=== PATIENT | male | born 1960 | race Caucasian/White ===

== ENCOUNTER → 2017-07-18 06:33 | Outpatient (CLI) | payer OTHER, SELFPAY ==
[2017-07-18 07:28] LABS: AST(SGOT) 21 U/L (15-37); Alanine Aminotransfer ALT/SGPT 32 U/L (16-61); Albumin, Serum 3.8 g/dL (3.2-5.0); Alkaline Phosphatase 45 U/L (45-117); Bilirubin, Direct 0.09 mg/dL (0.00-0.30); Cholesterol 162 mg/dL (200); Globulin 3.6 g/dL (2.2-4.2); High Density Lipoprotein 25 mg/dL; Protein, Total 7.4 g/dL (6.4-8.2); Triglycerides 232 mg/dL; Very Low Density Lipoprotein 46 mg/dL (5-40)
== END ==
PROVIDERS: Family Provider Family Medicine; PCP Family Medicine; Visit Provider Internal Medicine Cardiovascular Disease
DX: E78.5 Hyperlipidemia, unspecified (principal); Z79.899 Other long term (current) drug therapy
CPT/HCPCS: 36415; 80061; 80076

== ENCOUNTER → 2018-01-31 07:10 | Outpatient (CLI) | payer OTHER, SELFPAY ==
[2017-08-03 10:01] VITALS: BMI 36.2
[2018-01-31 08:46] LABS: AST(SGOT) 35 U/L (15-37); Alanine Aminotransfer ALT/SGPT 39 U/L (16-61); Albumin, Serum 3.6 g/dL (3.2-5.0); Alkaline Phosphatase 40 U/L (45-117); Cholesterol 169 mg/dL (200); Globulin 3.5 g/dL (2.2-4.2); Protein, Total 7.1 g/dL (6.4-8.2); Triglycerides 226 mg/dL
[2018-01-31 08:47] LABS: High Density Lipoprotein 23 mg/dL; Very Low Density Lipoprotein 45 mg/dL (5-40)
[2018-01-31 08:51] LABS: Hemoglobin A1c 9.2 % (4.2-6.3)
--- OUTSIDE RECORDS SUMMARY | 2018-03-28 07:01 | XMS RPT_ITS ---
:1960 Author Organization OHIP Care Team Providers Name Role Phone Abiodun Parra Attending Unavailable Theo Crawford Primary Care Unavailable Fidel Abiodun Attending Unavailable Fidel, [place] Referring Unavailable Theo Crawford Primary Care Unavailable Aniyah Brennan Attending Unavailable Yamileth Burnham Attending Unavailable Theo Crawford Referring Unavailable Theo Crawford Primary Care Unavailable Theo Crawford Attending Unavailable Theo Crawford Referring Unavailable Theo Crawford Primary Care Unavailable PROBLEMS PROBLEMS DATE TYPE CONDITION / CODE ATTENDING STATUS SOURCE 04/05/2017 Unknown Z95.1 - Presence of Fidel, [place] Active [place] [facility] bypass graft / Hospital Z95.1(ICD-10) Repository 04/05/2017 Unknown E78.5 - Fidel, Abiodun Active [place] Hyperlipidemia, Community unspecified / Hospital E78.5(ICD-10) Repository 04/05/2017 Unknown I10 - Essential Fidel, Abiodun Active [place] (primary) Community hypertension / Hospital I10(ICD-10) Repository PROCEDURES PROCEDURES No Procedure Records FoundRESULTS RESULTS LIVER PROFILE Collected: 01/31/2018 Status: F Source: [place] 7:15 AM [facility] REPOSITORY TYPE CODE TESTS RESULT OUT OF RANGE REFERENCE UNITS LAB L501.1500 6.4-8.2 g/dL Normal T PROT 7.1 LAB L501.1800 3.2-5.0 g/dL Normal ALB 3.6 LAB L501.1950 2.2-4.2 g/dL Normal GLOB 3.5 LAB L501.4100 15-37 U/L Normal AST 35 LAB L501.4305 45-117 U/L Low ALK P 40 LAB L501.4405 16-61 U/L Normal ALT 39 LAB L501.4600 0.20-1.00 mg/dL Normal T BILI 0.40 LAB L501.4700 0.00-0.30 mg/dL Normal D BILI 0.10 Performed By: #### L500.3400, L500.4100 #### [facility] [address] [place], [place], [id number] LIPID PROFILE Collected: 01/31/2018 Status: F Source: [place] 7:15 AM [facility] REPOSITORY TYPE CODE TESTS RESULT OUT OF RANGE REFERENCE UNITS LAB L501.4900 200 mg/dL Normal CHOL 169 Result Comment: <200 mg/dL Desirable 200-240 mg/dL Borderline >240 mg/dL High Risk LAB L501.5000 mg/dL High TRIG 226 Result Comment: The drugs N-Acetylcysteine and Metamizole may falsely depress this assay. Serum Triglycerides Reference Interval Normal <150 mg/dL Borderline high 150 - 199 mg/dL High 200 - 499 mg/dL Very High > or = 500 mg/dL LAB L501.6400 mg/dL Low HDL 23 Result Comment: The drugs N-Acetylcysteine and Metamizole may falsely depress this assay. Reference Range HDL <40 mg/dL Low HDL Cholesterol HDL >or= 60 mg/dL High HDL Cholesterol LAB L501.6500 0-130 mg/dL Normal LDL 101 LAB L501.6600 5-40 mg/dL High VLDL 45 Performed By: #### L500.3400, L500.4100 #### [facility] [address], [place], [id number] HEMOGLOBIN A1C Collected: 01/31/2018 Status: F Source: [place] 7:15 AM [facility] REPOSITORY Order Comment: Order Date: 10/30/17 Order Info: 4548-4 - A1C TYPE CODE TESTS RESULT OUT OF RANGE REFERENCE UNITS LAB L501.9985 4.2-6.3 % High HGB A1C 9.2 Performed By: #### L501.9985 #### [facility] [address] [place], [address] CARDIOLOGY VISIT Observed: 08/15/2017 Status: F Source: [place] 8:22 AM [facility] REPOSITORY [facility] [address] [place] [address] OFFICE VISIT Date of Service: 08/03/17 MR#: [id number] Acct: [id number] Name: PRAVEENA BENJAMIN Rep #: [id number] : 1960 Provider: Yamileth Burnham Age/Sex: 56/M [place] [facility] [place] Signed HPI HPI Details: PRAVEENA BENJAMIN, is a 56 M who presents to the office today for a cardiovascular follow-up. 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 He had an GIL to the LAD, SVG to obtuse marginal, SVG to the posterior descending. He also has a history of hypertension, hyperlipidemia and diabetes. From a cardiac standpoint, patient is doing well. He does not have any chest discomfort/heaviness/tightness. His exercise tolerance is stable for his age. He just returned from [place] where he was helping his son repair his house that was at 10,000 ft elevation. He did not have any difficulty. He does not have any worsening symptoms of shortness of breath. He denies any PND. He does not have any orthopnea. He does not have any symptoms of congestive heart failure. He does not have any palpitations that he is aware of. He does not have any lightheadedness or dizziness. He does not have any near-syncope or syncope. He does not have any lower extremity edema. He does not have any symptoms of claudication. Intake Vital Signs08/03/17 Height 6 ft 08/03/17 Weight: 267 lb 08/03/17 Body Mass Index (BMI) 36.2 08/03/17 Blood Pressure 122/80 Intake Visit Reasons: 6 M FU Evaluation Specialist Required: No Accompanied by: none Is patient in pain?: No Allergies atorvastatin [From Lipitor] Adverse Reaction (Severe, Verified 08/03/17 10:01) Myalgias Penicillins Adverse Reaction (Severe, Verified 08/03/17 10:01) Hives Medications ramipril 5 mg capsule 5 mg PO BID #180 cap 05/09/17 [Rx Confirmed 08/03/17] aspirin 81 mg tablet,delayed release 81 mg PO QDAY 07/31/17 [History Confirmed 08/03/17] glimepiride 4 mg tablet 4 mg PO QDAY tab 07/31/17 [History Confirmed 08/03/17] hydrochlorothiazide 25 mg tablet 25 mg PO QDAY 07/31/17 [History Confirmed 08/03/17] metoprolol succinate ER 50 mg tablet,extended release 24 hr 50 mg PO QDAY 07/31/17 [History Confirmed 08/03/17] pravastatin 20 mg tablet 20 mg PO QDAY 07/31/17 [History Confirmed 08/03/17] sitagliptin 50 mg-metformin 1,000 mg tablet 1 tab PO BID 07/31/17 [History Confirmed 08/03/17] escitalopram 10 mg tablet PO 90 Days #90 08/03/17 [History Confirmed 08/03/17] montelukast 10 mg tablet PO 90 Days #90 08/03/17 [History Confirmed 08/03/17] PFSH Medical History Diabetes (Chronic) Atherosclerotic heart disease of [place] coronary artery without angina pectoris (Chronic) Essential (primary) hypertension (Chronic) HLD (hyperlipidemia) (Chronic) Surgical History S/P CABG x 3 (Resolved) Family History Father Heart disease Myocardial infarction Mother Breast cancer Colon cancer Brother Hypertension Brother Diabetes Social History Smoking Status: Never smoker alcohol intake: never caffeine: Yes Type: tea Number of servings: 1 what type of physical activity do you participate in: none ROS Const Const: Negative for weakness, fatigue, fever(s) or headache(s) Eyes Eyes: Negative for blind spots, loss of peripheral vision or transient loss of vision ENT ENT: Negative for headache(s), dizziness, tinnitus or Nosebleed/epistaxis Cardio Chest Pain: No Palpitations: No Edema: None Muscle aches with walking: None Resp Respiratory: Negative for SOB with activity, SOB at rest, SOB orthopnea\SOB lying down or Cough GI GI: Negative nausea, vomiting, heartburn or vomiting blood/hematemesis : Negative for hematuria Musc Musc: Negative for muscle aches/ myalgia Neuro Neuro: Negative for weakness, headache(s), dizziness, near syncope, syncope, lightheadedness or orthostatic symptoms Alexander Hematologic/Lymphatic: Negative for easy bleeding Endo Endo: Negative for fatigue Cardiology Exam Const Appearance: cooperative, no acute distress and well developed Orientation: alert, awake and oriented x3 Head Head: normocephalic and atraumatic Mouth: moist mucous membranes Eyes General: appearance normal, both eyes and all related structures Conjunctivae: conjunctivae normal Pupils: PERRL EOM: EOM intact bilaterally Neck Neck: normal visual inspection, no lymphadenopathy and no JVD Carotids: Negative bruit Neck Mass: Negative Neck mass Chest Chest inspection: normal inspection of the chest and symmetric chest movement Auscultation: Bilateral: Clear to Auscultation Cardio Palpation: normal PMI Rate: regular rate Rhythm: regular rhythm Heart sounds: S1 normal and S2 normal; negative rub, gallop or murmur GI GI: normal to inspection, soft, no hepatosplenomegaly and bowel sounds present; negative tender Neuro General: alert, awake, oriented x3, CN's II-XI intact bilaterally and moves all extremities Extremities Pulses: Normal: Right Posterior Tibial Pulse, Left Posterior Tibial Pulse, Right Radial Pulse, Left Radial Pulse Lower Extremity Edema: None: Bilateral Psych Psychological: normal affect Supplemental Info Stress test in 2009 was negative for ischemia at a moderate workload. Assessment AND Plan 1. Atherosclerosis of [place] coronary artery of [place] heart without angina pectoris I25.10 10/22/09, CABG X 3 GIL to LAD, aorto obtuse marginal reverse SVG, aorto posterior descending reverse SVG Plan - SUSY [place] Patient does have excellent exercise tolerance however it is been greater than 8 years since he has had a stress test. He is a diabetic. Would like to evaluate for underlying silent ischemia. He is currently scheduled for a stress test in October of this year. Will not make any adjustments in medications. He will continue with current aggressive medical management and risk factor modifications 2. Essential hypertension I10 Plan - SUSY [place] . Adequately controlled on current medications. Will not make any adjustments. 3. Pure hypercholesterolemia E78.00; E78.0 Plan - SUSY [place] Recent lipid profile demonstrates total cholesterol 162, HDL 25, LDL 91. Triglycerides are elevated at 232. HDL has been chronically low. For now we will continue with current medical management. Plan Detail Additional Comments - SUSY [place] The above patient was discussed with Dr. Parra, he agrees with plan of care. Thank you for allowing us to participate in patient's plan of care, if you have any questions please do not hesitate to call. This note was generated using a voice recognition system and there may be incorrect words, spelling or punctuation errors that were not noted when reviewing the office note prior to saving. 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 transplanted heart: [place] heart Essential hypertension I10 Pure hypercholesterolemia E78.00; E78.0 Hyperlipidemia type: pure hypercholesterolemia Coding Level of Care Code Off vis,est,level 3 Diagnoses Atherosclerosis of [place] coronary artery of [place] heart without angina pectoris I25.10 [place] vs. transplanted heart: [place] heart Essential hypertension I10 Pure hypercholesterolemia E78.00; E78.0 Hyperlipidemia type: pure hypercholesterolemia 08/03/17 1055 <Electronically signed by Yamileth JAIN> Date Yamileth JAIN 08/15/17 0822<Electronically signed by Abiodun Parra MD> Cosigner Signature: Date (if applicable) Abiodun Parra MD CC: Theo Crawford MD LIVER PROFILE Collected: 07/18/2017 Status: F Source: [place] 6:36 AM [facility] REPOSITORY Order Comment: Order Date: 01/05/17 Order Info: 0788-1 - *Hepatic Function Panel Order Info: [id number] - *Lipid Profile CC PCP Comments: 12 hours fasting, may have water. TYPE CODE TESTS RESULT OUT OF RANGE REFERENCE UNITS LAB L501.1500 6.4-8.2 g/dL Normal T PROT 7.4 LAB L501.1800 3.2-5.0 g/dL Normal ALB 3.8 LAB L501.1950 2.2-4.2 g/dL Normal GLOB 3.6 LAB L501.4100 15-37 U/L Normal AST 21 LAB L501.4305 45-117 U/L Normal ALK P 45 LAB L501.4405 16-61 U/L Normal ALT 32 LAB L501.4600 0.20-1.00 mg/dL Normal T BILI 0.30 LAB L501.4700 0.00-0.30 mg/dL Normal D BILI 0.09 Performed By: #### L500.3400 #### [facility] [address] [place], [address] LIPID PROFILE Collected: 07/18/2017 Status: F Source: [place] 6:36 AM [facility] REPOSITORY Order Comment: Order Date: 01/05/17 Order Info: [id number] - *Hepatic Function Panel Order Info: [id number] - *Lipid Profile CC PCP Comments: 12 hours fasting, may have water. TYPE CODE TESTS RESULT OUT OF RANGE REFERENCE UNITS LAB L501.4900 200 mg/dL Normal CHOL 162 Result Comment: <200 mg/dL Desirable 200-240 mg/dL Borderline >240 mg/dL High Risk LAB L501.5000 mg/dL High TRIG 232 Result Comment: The drugs N-Acetylcysteine and Metamizole may falsely depress this assay. Serum Triglycerides Reference Interval Normal <150 mg/dL Borderline high 150 - 199 mg/dL High 200 - 499 mg/dL Very High > or = 500 mg/dL LAB L501.6400 mg/dL Low HDL 25 Result Comment: The drugs N-Acetylcysteine and Metamizole may falsely depress this assay. Reference Range HDL <40 mg/dL Low HDL Cholesterol HDL >or= 60 mg/dL High HDL Cholesterol LAB L501.6500 0-130 mg/dL Normal LDL 91 LAB L501.6600 5-40 mg/dL High VLDL 46 Performed By: #### L500.4100 #### [facility] [address] [place], [address] ALLERGIES ALLERGIES DATE TYPE / CODE NAME / CODE REACTION SEVERITY SOURCE 08/03/2017 Drug Penicillins/ Hives [facility] Allergy/4160 [id number]( Hospital 62104(SNOMED XNORM) Repository CT) 08/03/2017 Drug atorvastatin MYALGIAS [facility] Allergy/4160 /[id number]( Hospital 54965(SNOMED RXNORM) Repository CT) ENCOUNTERS ENCOUNTERS ADMIT/DISCHARGE ACCOUNT ADMITTING ENCOUNTER LOCATION SOURCE NUMBER CLASS 01/31/2018 [id number] Ambulatory [place] 2 [facility] ing:LAB Repository 08/03/2017/ [id number] Ambulatory BMSBuilding:B [place] 8 2 [facility] Repository 07/31/2017 [id number] Ambulatory [facility] 7 [facility] Repository 07/18/2017 [id number] Ambulatory [place] 5 [facility] ing:LAB Repository 03/14/2017 [id number] [facility] ing:[facility] Repository PAYERS PAYERS ENCOUNTER GUARANTOR PAYER SUBSCRIBER SOURCE 01/31/2018 PRAVEENA Ashby Primary [place]ICO D [place] [id number] S [facility] [place]: [id number] [id number] Repository [address]Biz: 330) Date:0340-51-63[phone] () [id number], [place] [address]FC: 01/31/2018 Secondary NOT GIVENUNK [place] Insurance:SELF PAY [facility] Number: Effective Repository Date:2018-01-31 08/03/2017 PRAVEENA Ashby Primary NICO D [place] [id number] S Insurance:[facility]: [id number], [place] [id number] Repository [address]Dzp: (330) Date:2767-37-39[phone] (HP) RAQUEL ROB [address]CD: 08/03/2017 Secondary NOT GIVENUNK [place] Insurance:SELF PAY [facility] Number: Effective Repository Date:2017-06-18 07/31/2017 PRAVEENA D Primary NICO D [place] [id number] S Insurance:CIGNAPolicy HARTZLERDOB: Community [place] Number: [id number], [place] [id number] Repository [address]Zra: (330) Date:3891-69-87[phone] (HP) [id number] COLLADO [address]BG: 07/31/2017 Secondary NOT GIVENUNK [place] Insurance:SELF PAY [facility] Number: Effective Repository Date:2017-07-31 07/18/2017 PRAVEENA D Primary NICO D [place] [id number] S Insurance:CIGNAPolicy HARTZLERDOB: Community [place] Number: [id number], [place] [id number] Repository [address]Fgg: (330) Date:6232-76-99[phone] (HP) RAQUEL ROB [address]SX: 07/18/2017 Secondary NOT GIVENUNK [place] Insurance:SELF PAY [facility] Number: Effective Repository Date:2017-07-18 03/14/2017 Praveena D Primary NICO D [place] [id number] S Insurance:CIGNAPolicy HARTZLERDOB: Community [place] Number: [id number], [place] [id number] Repository [address]Luf: Date:7389-32-70HJ [phone] RAQUEL ROB 8 (HP) [id number]: 03/14/2017 Secondary NOT GIVENUNK [place] Insurance:SELF PAY [facility] Number: Effective Repository Date:2017-01-31
== END ==
PROVIDERS: Internal Medicine Cardiovascular Disease; Family Provider Family Medicine; PCP Family Medicine; Referring Provider Family Medicine; Visit Provider Family Medicine
DX: I10 Essential (primary) hypertension (principal); E78.5 Hyperlipidemia, unspecified
CPT/HCPCS: 36415; 80061; 80076; 83036

== ENCOUNTER → 2019-03-12 06:23 | Outpatient (CLI) | payer OTHER, SELFPAY ==
[2018-05-07 09:15] VITALS: BMI 36.8
[2019-03-12 08:00] LABS: Anion Gap 7 (5-15); BUN 30 mg/dL (7-18); BUN/Creat Ratio 22.9 RATIO (10-20); Calcium,Total 8.9 mg/dL (8.5-10.1); Chloride 101 mmol/L (98-107); Cholesterol 160 mg/dL (200); Creatinine, Serum 1.31 mg/dL (0.70-1.30); EST Glomerular Filtration Rate 59 mL/min (>60); Est Glom Filt Rate - Afr Amer 72 mL/min (>60); Glucose 185 mg/dL (74-106); High Density Lipoprotein 25 mg/dL; PSA,Total - Annual Screen 0.48 ng/mL (0.00-4.00); Potassium 3.8 mmol/L (3.5-5.1); Sodium Level 136 mmol/L (136-145); Triglycerides 228 mg/dL; Very Low Density Lipoprotein 46 mg/dL (5-40)
[2019-03-12 08:54] LABS: Hemoglobin A1c 7.7 % (4.2-6.3)
== END ==
PROVIDERS: Family Medicine; Family Provider Family Medicine; PCP Family Medicine; Referring Provider Family Medicine; Visit Provider Family Medicine
DX: I10 Essential (primary) hypertension (principal); E11.65 Type 2 diabetes mellitus with hyperglycemia; E78.5 Hyperlipidemia, unspecified; Z12.5 Encounter for screening for malignant neoplasm of prostate
CPT/HCPCS: 36415; 80048; 80061; 83036; 84153; G0103

== ENCOUNTER → 2019-03-14 08:32 | Outpatient (CLI) | payer OTHER, SELFPAY ==
[2018-05-07 09:15] VITALS: BMI 36.8
[2019-03-14 10:06] LABS: Vitamin D,25 Hydroxy 15.1 ng/mL (29.95-100.01)
[2019-03-14 10:10] LABS: Microalbumin:Creatinine Ratio 19.5 mg/g CRE (<30 mg/g CRE)
== END ==
PROVIDERS: Family Provider Family Medicine; PCP Family Medicine; Referring Provider Family Medicine; Visit Provider Family Medicine
DX: E11.22 Type 2 diabetes mellitus with diabetic chronic kidney disease (principal); N18.3 Chronic kidney disease, stage 3 (moderate); E11.65 Type 2 diabetes mellitus with hyperglycemia
CPT/HCPCS: 36415; 82043; 82306; 82570

== ENCOUNTER → 2019-10-06 12:56 | Outpatient (CLI) | payer OTHER, SELFPAY ==
[2019-05-13 08:41] VITALS: BMI 35.5
== END ==
PROVIDERS: Referring Provider Family Medicine; Visit Provider Family Medicine
DX: Z11.59 Encounter for screening for other viral diseases (principal)
CPT/HCPCS: 87635; U0003

== ENCOUNTER → 2019-10-23 06:07 | Outpatient (CLI) | payer OTHER, SELFPAY ==
[2019-05-13 08:41] VITALS: BMI 35.5
[2019-10-23 07:50] LABS: Microalbumin,Random Urine 9.4 mg/L (NO RANGE EST.)
[2019-10-23 08:25] LABS: Vitamin D,25 Hydroxy 42.7 ng/mL
== END ==
PROVIDERS: PCP Family Medicine; Referring Provider Family Medicine; Visit Provider Family Medicine
DX: E11.65 Type 2 diabetes mellitus with hyperglycemia (principal); E11.22 Type 2 diabetes mellitus with diabetic chronic kidney disease; N18.3 Chronic kidney disease, stage 3 (moderate)
CPT/HCPCS: 36415; 82043; 82306; 82570

== ENCOUNTER → 2019-11-20 12:23 | Outpatient (CLI) | payer OTHER, SELFPAY ==
[2019-05-13 08:41] VITALS: BMI 35.5
== END ==
PROVIDERS: Referring Provider Family Medicine; Visit Provider Family Medicine
DX: Z11.59 Encounter for screening for other viral diseases (principal)
CPT/HCPCS: 87635; U0003

== ENCOUNTER → 2019-12-04 10:28 | Outpatient (CLI) | payer OTHER, SELFPAY ==
[2019-05-13 08:41] VITALS: BMI 35.5
== END ==
PROVIDERS: Referring Provider Family Medicine; Visit Provider Family Medicine
DX: Z11.59 Encounter for screening for other viral diseases (principal)
CPT/HCPCS: 87635; U0003

== ENCOUNTER → 2019-12-15 13:15 | Outpatient (CLI) | payer OTHER, SELFPAY ==
[2019-05-13 08:41] VITALS: BMI 35.5
== END ==
PROVIDERS: Referring Provider Family Medicine; Visit Provider Family Medicine
DX: Z03.818 Encounter for observation for suspected exposure to other biological agents ruled out (principal)
CPT/HCPCS: 87635; U0003

== ENCOUNTER → 2019-12-18 12:36 | Outpatient (CLI) | payer OTHER, SELFPAY ==
[2019-05-13 08:41] VITALS: BMI 35.5
== END ==
PROVIDERS: Referring Provider Family Medicine; Visit Provider Family Medicine
DX: Z03.818 Encounter for observation for suspected exposure to other biological agents ruled out (principal)
CPT/HCPCS: 87635; U0003

== ENCOUNTER → 2020-01-15 13:31 | Outpatient (CLI) | payer OTHER, SELFPAY ==
[2019-05-13 08:41] VITALS: BMI 35.5
== END ==
PROVIDERS: Referring Provider Family Medicine; Visit Provider Family Medicine
DX: Z03.818 Encounter for observation for suspected exposure to other biological agents ruled out (principal)
CPT/HCPCS: 87635; U0003

== ENCOUNTER → 2020-03-04 06:08 | Outpatient (CLI) | payer OTHER, SELFPAY ==
[2019-05-13 08:41] VITALS: BMI 35.5
[2020-03-04 07:31] LABS: ALB/GLOB Ratio 1.1 RATIO (0.9-2.4); AST(SGOT) 19 U/L (15-37); Alanine Aminotransfer ALT/SGPT 34 U/L (16-61); Albumin, Serum 3.7 g/dL (3.2-5.0); Alkaline Phosphatase 50 U/L (45-117); Anion Gap 5 (5-15); BUN 28 mg/dL (7-18); BUN/Creat Ratio 22.8 RATIO (10-20); Calcium,Total 8.8 mg/dL (8.5-10.1); Chloride 101 mmol/L (98-107); Cholesterol 163 mg/dL (200); Creatinine, Serum 1.23 mg/dL (0.70-1.30); EST Glomerular Filtration Rate 64 mL/min (>60); Est Glom Filt Rate - Afr Amer 77 mL/min (>60); Globulin 3.4 g/dL (2.2-4.2); Glucose 165 mg/dL (74-106); High Density Lipoprotein 26 mg/dL; Potassium 4.3 mmol/L (3.5-5.1); Protein, Total 7.1 g/dL (6.4-8.2); Sodium Level 134 mmol/L (136-145); Triglycerides 190 mg/dL; Very Low Density Lipoprotein 38 mg/dL (5-40)
[2020-03-04 07:32] LABS: Hemoglobin A1c 7.3 % (3.8-5.6)
== END ==
PROVIDERS: PCP Family Medicine; Referring Provider Family Medicine; Visit Provider Family Medicine
DX: E11.65 Type 2 diabetes mellitus with hyperglycemia (principal); E78.5 Hyperlipidemia, unspecified
CPT/HCPCS: 36415; 80053; 80061; 83036

== ENCOUNTER 2021-02-23 13:32 | Emergency (ER) | payer OTHER, SELFPAY ==
[2021-02-23 13:34] VITALS: BP 115/68; PULSE 72; RESP 17; TEMP 35.7; O2SAT 91; BMI 35.0
--- NOTE | 2021-02-23 14:01 | ED.RN ---
PT NOT WANTING TO FILE WORKERS COMP.
--- NOTE | 2021-02-23 14:03 | EX.ED.UPPERE ---
HPI History of Present Illness Chief Complaint: Upper Extremity Injury Informant: patient Narrative Narrative: 60-year-old male was working on a hospital bed when his hand was crushed in the bed came down onto it. He notes a large laceration to the dorsum of the right hand. Last tetanus was 1 year ago. He is a diabetic. Tetanus Immunization: <5 years [facility] Medical History (Updated 02/23/21 @ 14:[address] Bhaskar Arguello DO) Atherosclerotic heart disease of [place] coronary artery without angina pectoris Essential (primary) hypertension HLD (hyperlipidemia) Incomplete right bundle branch block Obesity Type 2 diabetes mellitus Home Medications glimepiride 4 mg tablet 4 mg PO QDAY tab 07/31/17 [History Last Taken Unknown] sitagliptin 50 mg-metformin 1,000 mg tablet 1 tab PO BID 07/31/17 [History Last Taken Unknown] escitalopram oxalate 10 mg tablet PO 90 Days #90 08/03/17 [History Last Taken Unknown] montelukast 10 mg tablet PO 90 Days #90 08/03/17 [History Last Taken Unknown] empagliflozin 25 mg tablet 25 mg PO DAILY 05/07/18 [History Last Taken Unknown] aspirin 81 mg tablet,delayed release 81 mg PO DAILY 05/13/19 [History Last Taken Unknown] metoprolol succinate 50 mg tablet,extended release 24 hr 50 mg PO QDAY #90 tab 04/21/20 [Rx Last Taken Unknown] hydrochlorothiazide 25 mg tablet 25 mg PO QDAY #90 tab 05/11/20 [Rx Last Taken Unknown] pravastatin 20 mg tablet 20 mg PO QDAY #90 tab 05/11/20 [Rx Last Taken Unknown] ramipril 5 mg capsule 5 mg PO BID #180 cap 05/11/20 [Rx Last Taken Unknown] cephalexin 500 mg PO Q6 #28 capsule 02/23/21 [Rx Last Taken Unknown] hydrocodone-acetaminophen 1 tab PO Q6H PRN PRN 3 Days #12 tablet 02/23/21 [Rx Last Taken Unknown] Allergy/AdvReac Type Severity Reaction Status Date / Time atorvastatin [From Lipitor] AdvReac Severe Myalgias Verified 02/23/21 13:32 Penicillins AdvReac Severe Hives Verified 02/23/21 13:32 Family History Father Heart disease Myocardial infarction Mother Breast cancer Colon cancer Brother Hypertension Brother Diabetes Surgical History H/O coronary artery bypass surgery (10/12/09) Social History Smoking Status: Never smoker alcohol intake: never caffeine: Yes Type: tea Number of servings: 1 what type of physical activity do you participate in: none ROS ROS ED Constitutional Constitutional ED: Denies chills or weight loss Eyes Eyes: Denies change in vision or diplopia ENT ENT ED: Denies ear pain, rhinorrhea or sore throat Cardiovascular Cardiovascular: Denies chest pain, orthopnea, palpitations or racing heartbeat Respiratory/Chest Respiratory/Chest: Denies cough, dyspnea or orthopnea Gastrointestinal Gastrointestinal: Denies abdominal pain, diarrhea, nausea or vomiting Genitourinary Genitourinary ED: Denies dysuria, hematuria or urinary frequency Musculoskeletal Musculoskeletal: Denies arthralgias or myalgias Integumentary Reports other Details: Hand laceration ; Denies abscess or rash Neurologic Neurologic: Denies headache(s) or weakness Psychiatric Psychiatric: Denies anxiety, depression, suicidal ideation or suicidal thoughts Endocrine Endocrinology: Denies polydipsia, polyphagia or polyuria Allergic/Immunologic Allergic/Immunologic ED: Denies mouth swelling, tongue swelling or urticaria EXAM Physical Exam Const Vital Signs: 02/23/21 13:34 Temperature 96.2 F L Temperature Source Temporal Pulse Rate 72 Respiratory Rate 17 Blood Pressure 115/68 Blood Pressure Mean 83 Pulse Ox 91 Oxygen Delivery Method Room Air Positive well nourished and well developed General Appearance ED: well developed HEENT Reports normocephalic, head/scalp atraumatic and moist mucous membranes normocephalic and atraumatic; Negative for tenderness Eyes PERRL and EOMs intact bilaterally Neck full ROM, no lymphadenopathy, supple and no JVD Resp normal respiratory effort and clear to auscultation bilaterally Cardio regular rate, regular rhythm and no murmurs GI normal to inspection, nondistended, normoactive bowel sounds and non-tender Palpation: soft Back/Spine no CVA tenderness and normal ROM Extremity full ROM Extremity Narrative: Tendon function specifically the extensor tendons of the right hand appear unaffected. General Extremety ED: Negative for edema General Extremity: Negative for edema Neuro oriented x3 and CN's II-XII intact bilaterally Sensorium / Orientation: alert Motor Exam: strength 5/5 throughout Psych mental status grossly normal Mood & Affect: Negative for depressed or tearful Skin no rashes or lesions noted and no wounds Skin Narrative: There is a large J-shaped laceration to the dorsum of the right hand that measures approximately 7 cm. MDM MDM MDM Narrative Medical decision making narrative: My interpretation of the plain films of the right hand is a displaced base of third metacarpal fracture. Radiology notes possible scaphoid lunate space widening. The patient wishes to follow-up at [facility] and therefore the case was discussed with [facility] hand surgeon Dr. Rand. They are unable to add him to the operating schedule today so the plan set forth will be to irrigate so the wound closed placed on antibiotics and splint and follow-up in the office as soon as possible. Patient is very comfortable with this plan and is much happier with that than having to have surgery tonight. The wound was locally anesthetized using 1% lidocaine. Wound was washed with Shur-Clens. it was then irrigated using approximately 500 cc of sterile saline. The wound was then closed using simple interrupted 3-0 Ethilon sutures. Wound was then dressed. An AP plaster splint made by this physician was placed. Neurovascular intact pre and post application. I will write for the patient have Keflex and pain medication. Discharge Plan Triage Chief Complaint: Upper Extremity Injury ED Provider: Bhaskar Arguello Dx/Rx/DC Orders Clinical Impression: Laceration of hand, right, Crush injury of hand Instructions: ED Crush Injury, Hand, ED Open Hand Fracture (Adult), ED Laceration, Hand: All Closures Prescriptions: New cephalexin [cephalexin] 500 MG capsule 500 mg PO Q6 Qty: 28 RF: 0 hydrocodone-acetaminophen [hydrocodone-acetaminophen] 1 TABLET tablet 1 tab PO Q6H PRN PRN (Reason: Pain) 3 Days Qty: 12 RF: 0 No Action montelukast 10 mg tablet PO 90 Days Qty: 90 RF: 0 escitalopram oxalate 10 mg tablet PO 90 Days Qty: 90 RF: 0 glimepiride 4 mg tablet 4 mg PO QDAY RF: 0 sitagliptin-metformin 50-1,000 mg tablet 1 tab PO BID RF: 0 Jardiance 25 mg tablet 25 mg PO DAILY RF: 0 aspirin [Adult Aspirin Regimen] 81 mg tablet,delayed release (DR/EC) 81 mg PO DAILY RF: 0 pravastatin 20 mg tablet 20 mg PO QDAY Qty: 90 RF: 3 ramipril 5 mg capsule 5 mg PO BID Qty: 180 RF: 3 hydrochlorothiazide 25 mg tablet 25 mg PO QDAY Qty: 90 RF: 3 metoprolol succinate 50 mg tablet extended release 24 hr 50 mg PO QDAY Qty: 90 RF: 3 Primary Care Provider: Dru Deleon Referrals: Dru Deleon MD [Primary Care Provider] - As Needed Activity Restrictions/Additional Instructions: Make sure to take your antibiotics as directed. 1 pill 4 times a day. Please call [facility] to make an appointment with Dr. Rand as soon as possible. Disposition Disposition: Home, Self Care Discharge Date/Time: 02/23/21 16:05
[2021-02-23] MEDS: Lidocaine 1% (20 ml mdv) 20 ML Vial INFILT (14:17)
--- NOTE | 2021-02-23 14:25 | RAD_ITS ---
STUDY: X-RAY - RIGHT HAND REASON FOR EXAM: Right hand pain, right hand injury. TECHNIQUE: 3 view(s) of the hand. COMPARISON: None. FINDINGS: Normal radiocarpal articulation. Normal distal radioulnar joint. Normal visualized carpal bones. There is mild widening of the scapholunate interval, possibly indicating scapholunate ligament tear. Normal carpometacarpal articulation of the thumb. Normal second through fifth carpometacarpal joints. There is an oblique fracture of the proximal third metacarpal metaphysis with radial displacement by approximately half a bone width. Normal metacarpophalangeal joint of the thumb. Normal interphalangeal joint of the thumb. Normal proximal and distal phalanges of the thumb. Normal metacarpophalangeal joints of the second through fifth fingers. There are small marginal osteophytes of the fifth proximal interphalangeal joint. There is mild arthrosis of the second distal interphalangeal joint. Normal phalanges of the second through fifth fingers. There is soft tissue swelling and laceration of the dorsal hand. RAD/Hand Min 3 Views IMPRESSION: Third metacarpal fracture. Widening of the scapholunate interval, possibly indicating scapholunate ligament tear. Electronically Signed: Shawn Mcguire MD at 14:49 EST Tel , Service support ,
== END 2021-02-23 16:05 | disposition home or self-care (01) ==
LOC: ED 14:13
PROVIDERS: Emergency Provider Emergency Medicine; PCP Family Medicine
DX: S61.411A Laceration without foreign body of right hand, initial encounter (principal); I25.10 Atherosclerotic heart disease of native coronary artery without angina pectoris; W23.0XXA Caught, crushed, jammed, or pinched between moving objects, initial encounter
CPT/HCPCS: 12002; 73130; 99283

== ENCOUNTER 2021-04-04 06:30 | Outpatient (CLI) | payer BC, SELFPAY ==
[2021-04-04 07:31] LABS: Anion Gap 4 (5-15); BUN 29 mg/dL (7-18); Calcium,Total 9.8 mg/dL (8.5-10.1); Chloride 101 mmol/L (98-107); Cholesterol 143 mg/dL (200); Creatinine, Serum 1.38 mg/dL (0.70-1.30); EST Glomerular Filtration Rate 55 mL/min (>60); Est Glom Filt Rate - Afr Amer 67 mL/min (>60); Glucose 159 mg/dL (74-106); High Density Lipoprotein 20 mg/dL; Potassium 3.9 mmol/L (3.5-5.1); Sodium Level 136 mmol/L (136-145); Triglycerides 225 mg/dL; Very Low Density Lipoprotein 45 mg/dL (5-40)
[2021-04-04 08:41] LABS: Hemoglobin A1c 7.8 % (3.8-5.6)
== END 2021-04-04 23:59 | disposition short-term general hospital (02) ==
PROVIDERS: PCP Nurse Practitioner Family; Referring Provider Nurse Practitioner Family; Visit Provider Nurse Practitioner Family
DX: E11.65 Type 2 diabetes mellitus with hyperglycemia (principal)
CPT/HCPCS: 36415; 80048; 80061; 83036

== ENCOUNTER 2021-06-01 06:53 | Outpatient (CLI) | payer BC, SELFPAY ==
--- NOTE | 2021-06-01 14:57 | STRESSREP ---
Stress Test Report Exercise myocardial perfusion stress test. 60-year-old male with a history of coronary artery bypass surgery and palpitations. Stress protocol: Resting EKG demonstrates normal sinus rhythm with a rate of 78 bpm and an incomplete right bundle branch block noted. The patient exercised according to the regular Alfa protocol for total duration of 7 minutes. The maximum heart rate attained was 137 bpm which was over 85% of max impact at heart rate. No chest pain was noted mild dyspnea was noted. The patient maintained sinus rhythm throughout. At rest and during peak exercise upsloping changes were noted with did not meet the criteria for ischemia. In the recovery. Mild downsloping ST depression was noted in lead III and aVF. Approximately 2 minutes and 24 seconds into recovery the patient went into a narrow complex tachycardia with a rate of 151 bpm patient attempted vagal maneuvers which were initially unsuccessful. After approximately 6 minutes in this rhythm and further monitor monitoring and maneuvers the patient spontaneously broke into a sinus rhythm. During the tachycardia there was approximately [address] depression noted in leads II, III and aVF as well as ST elevation noted in aVR. The above is suggestive but not diagnostic of ischemia. No chest pain was noted. The peak blood pressure was 170/80 mmHg. Myocardial perfusion protocol. 14.8 mCi of technetium 99m sestamibi was injected at rest. The patient exercised according to regular Alfa protocol for total duration of 7 minutes. At peak exercise 45.0 mCi of technetium 99m sestamibi was injected stress images were obtained stress and rest images were reconstructed and compared in the short axis vertical long and horizontal long axis. Gated images were also obtained per Perfusion SPECT analysis: Review of the stress images demonstrate normal uptake of tracer noted in all areas of the myocardium. The resting images similarly demonstrate normal uptake of tracer noted in all areas of the myocardium. No previous infarct is noted no areas of ischemia are noted. Gated SPECT analysis: The gated ejection fraction is 62%. Conclusion: Normal exercise myocardial perfusion stress test at a moderate workload. Spontaneous supraventricular tachycardia noted at a rate of 151 bpm with spontaneous termination. Good functional capacity.
== END 2021-06-01 23:59 | disposition home or self-care (01) ==
PROVIDERS: PCP Family Medicine; Visit Provider Internal Medicine Cardiovascular Disease
DX: I25.10 Atherosclerotic heart disease of native coronary artery without angina pectoris (principal); Z95.1 Presence of aortocoronary bypass graft
CPT/HCPCS: 78452; 93017; A9500; A4216

== ENCOUNTER → 2021-07-06 | Outpatient (CLI) | payer BC, SELFPAY ==
--- NOTE | 2021-07-06 13:42 | ECHOCS_ITS ---
Reason For Study: s/p CABG Procedure This was a 2D Doppler, Color Flow transthoracic echocardiogram. The study was technically difficult. Contrast injection was performed. Exam performed in department. Left Ventricle Normal LV size. Left ventricular systolic function is normal. The estimated ejection fraction is 65 %. Stage 2 diastolic dysfunction. No regional wall motion abnormalities noted. Right Ventricle Normal RV size. Normal systolic function. Atria Normal left atrium. Normal right atrium. Mitral Valve Normal mitral valve. Tricuspid Valve Normal tricuspid valve. Mild tricuspid valve insufficiency. Pulmonary artery systolic pressure is 26 mmHg. Aortic Valve Trisinus/trileaflet aortic valve. Mild focal aortic valve calcification. Peak aortic valve gradient 28 mmHg. Mean aortic valve gradient 16 mmHg. Mild aortic stenosis. Mild (1+) aortic valve insufficiency. Pulmonic Valve Normal pulmonic valve. Great Vessels Normal aortic root. The pulmonary artery is normal size. Normal inferior vena cava. Pericardium/Pleural No pericardial effusion. Medication 22 gauge I.V. with prn adaptor inserted into left arm. Diluted definity 3ml given slow IV push to enhance endocardial definition. MMode/2D Measurements & Calculations LVIDd: 4.8 cm IVSd: 1.0 cm LVOT diam: 2.0 cm LVIDs: 3.4 cm LVPWd: 1.2 cm FS: 28.6 % LVOT area: 3.1 cm2 Ao root diam: 3.8 cm LAV(MOD-bp): 51.0 ml LA A4 area: 17.1 cm2 LA dimension: 4.2 cm LAV(MOD-bp) Indexed: 21.6 ml/m2 LAV(MOD-sp2): 54.3 ml LAV(MOD-sp4): 46.5 ml Time Measurements MV dec time: 0.27 sec Doppler Measurements & Calculations MV E max kenton: 107.7 cm/sec Lat Peak E' Kenton: 8.4 cm/sec Med Peak E' Kenton: 6.5 cm/sec MV A max kenton: 96.4 cm/sec E/E' lat: 12.8 E/E' med: 16.5 MV E/A: 1.1 MV V2 max: 117.6 cm/sec MV P1/2t max kenton: 117.6 cm/sec Ao V2 max: 265.2 cm/sec MV max P.5 mmHg MV P1/2t: 55.4 msec Ao max P.2 mmHg MV V2 mean: 59.8 cm/sec MV dec slope: 621.2 cm/sec2 Ao V2 mean: 186.8 cm/sec MV mean P.7 mmHg Ao mean P.7 mmHg MV V2 VTI: 32.2 cm MVA(P1/2t): 4.0 cm2 Ao V2 VTI: 56.1 cm MVA(VTI): 2.6 cm2 ISABEL(I,D): 1.5 cm2 ISABEL(V,D): 1.4 cm2 AI max kenton: 365.0 cm/sec LV V1 max: 115.7 cm/sec SV(LVOT): 82.9 ml AI max P.3 mmHg LV V1 max P.4 mmHg LV V1 mean P.8 mmHg AI dec slope: 190.3 cm/sec2 LV V1 mean: 78.7 cm/sec AI P1/2t: 561.6 msec LV V1 VTI: 26.7 cm PA V2 max: 136.8 cm/sec TR max kenton: 234.3 cm/sec TR max P.0 mmHg ECHO/Echo Complete W/ Contrast Interpretation Summary Normal LV size. Left ventricular systolic function is normal. The estimated ejection fraction is 65 %. Mild (1+) aortic valve insufficiency. Stage 2 diastolic dysfunction. Mean aortic valve gradient 16 mmHg. Mild aortic stenosis. Ordering Physician: Abiodun Parra Referring Physician: Dru Deleon Performed By: Sourav Castro RCS
== END | disposition home or self-care (01) ==
LOC: CVS 13:41
PROVIDERS: PCP Family Medicine; Visit Provider Internal Medicine Cardiovascular Disease
DX: Z95.1 Presence of aortocoronary bypass graft (principal)
CPT/HCPCS: 93306; Q9957; A4216; C8929

== ENCOUNTER → 2022-01-06 | Outpatient (CLI) | payer BC, SELFPAY ==
[2022-01-06 07:42] LABS: Absolute Lymphocyte Count 2.45 X10^3/uL (0.83-4.51); Absolute Neutrophil Count 7.5 X10^3/uL (2.0-7.7); Basophil# 0.07 X10^3/uL; Basophil% 0.6 % (0-1); Eosinophils% 3.5 % (0-5); Hemoglobin 16.7 g/dL (13.0-16.5); Lymphocyte # 2.45 X10^3/ul (0.83-4.51); Lymphocyte % 21.3 % (19-41); Mean Corp Hgb Conc 34.8 g/dL (32-36); Mean Corpuscular Hgb 30.1 pg (27.0-32.0); Mean Corpuscular Volume 86.5 fL (80-94); Mean Platelet Vol. 11.5 fl (6.2-12.0); Monocyte# 0.99 X10^3/uL; Monocyte% 8.6 % (0-10); NRBC Flagged by Analyzer 0 % (0-5); Neutrophil # 7.49 X10^3/uL (2.7-7.7); Neutrophil % 65.2 % (47-70); Platelet Count 232 K/mm3 (150-450); RBC Distribution Width CV 14.2 % (11.6-14.6); Red Blood Count 5.55 M/mm3 (4.6-6.2); White Blood Count 11.5 K/mm3 (4.4-11.0)
[2022-01-06 08:17] LABS: Hemoglobin A1c 7.9 % (3.8-5.6)
[2022-01-06 08:18] LABS: ALB/GLOB Ratio 1.1 RATIO (0.9-2.4); AST(SGOT) 24 U/L (15-37); Alanine Aminotransfer ALT/SGPT 35 U/L (16-61); Albumin, Serum 3.7 g/dL (3.2-5.0); Alkaline Phosphatase 45 U/L (45-117); Anion Gap 7 (5-15); BUN 26 mg/dL (7-18); BUN/Creat Ratio 21.8 RATIO (10-20); Calcium,Total 9.5 mg/dL (8.5-10.1); Chloride 102 mmol/L (98-107); Cholesterol 160 mg/dL (200); Creatinine, Serum 1.19 mg/dL (0.70-1.30); EST Glomerular Filtration Rate 66 mL/min (>60); Est Glom Filt Rate - Afr Amer 79 mL/min (>60); Globulin 3.5 g/dL (2.2-4.2); Glucose 154 mg/dL (74-106); High Density Lipoprotein 25 mg/dL; Potassium 4.2 mmol/L (3.5-5.1); Protein, Total 7.2 g/dL (6.4-8.2); Sodium Level 137 mmol/L (136-145); Triglycerides 188 mg/dL; Very Low Density Lipoprotein 38 mg/dL (5-40)
== END | disposition home or self-care (01) ==
PROVIDERS: PCP Family Medicine; Referring Provider Nurse Practitioner Family; Visit Provider Nurse Practitioner Family
DX: I10 Essential (primary) hypertension (principal); E11.65 Type 2 diabetes mellitus with hyperglycemia
CPT/HCPCS: 36415; 80053; 80061; 83036; 85025

== ENCOUNTER 2022-10-19 06:48 | Observation (INO) | payer BC, SELFPAY ==
[2022-10-19] VITALS (7 sets, daily range): BP systolic 124–165; BP diastolic 55–88; PULSE 58–84; RESP 14–18; TEMP 36.3–36.9; O2SAT 96–99; BMI 34.8; BMI 34.5
--- NOTE | 2022-10-19 07:10 | US_ITS ---
STUDY: ABDOMINAL ULTRASOUND - RIGHT UPPER QUADRANT REASON FOR VISIT: Male, 61 years old . Right upper quadrant pain. TECHNIQUE: Ultrasound evaluation of the right upper quadrant was performed with real-time and static jeffers-scale imaging. TECHNICAL QUALITY: Adequate. COMPARISON: None. FINDINGS: Liver: The liver is enlarged and measures 21.3 cm. There is increased echogenicity consistent with fatty infiltration. The bile ducts are within normal limits. There is hepatic color flow. The direction of portal flow is hepatopetal. There is no demonstrated mass lesion. Gallbladder: There is a contracted gallbladder. The gallbladder wall measures 1.9 mm. There is a negative sonographic Thornton''s sign. There is no pericholecystic fluid. There are multiple echogenic structures within the gallbladder, consistent with multiple gallstones. Common Bile Duct (C.B.D.): The common bile duct measures 2.5 mm. Pancreas: Normal size of the head, body of the pancreas. The tail portion is obscured due to overlying bowel gas. There is normal echogenicity of the pancreas. There is no demonstrated pancreatic mass or cyst. Right Kidney: Normal size of the right kidney. The right kidney measures 12.4 cm x 6.4 cm x 6.3 cm. Normal renal cortex. The right cortex measures 1.3 cm. There is a 2.1 cm x 2 cm x 2 cm cyst in the lower pole of the kidney. There is no right hydronephrosis. US/Gallbladder IMPRESSION: Hepatomegaly and fatty infiltration of the liver. Multiple gallstones. Electronically Signed: Nile Batista MD at 8:58 EDT ,
--- NOTE | 2022-10-19 07:11 | ED.VIS.GI ---
HPI HPI - GI History of Present Illness Chief Complaint: Abd Pain Informant: patient Narrative Narrative: Patient has had about 2 days of gradual onset colicky aching pain in his upper abdomen, feels like it is going all the way across and radiating into his back. Associated with nausea, he vomited this morning, not necessarily related to meals. Does not drink alcohol. No history of any abdominal surgeries in the past. Takes 2 baby aspirin daily for a history of CAD had a CABG. Has had loose stools with this but no blood or melena. No fevers, chills, jaundice, confusion. 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 Essential (primary) hypertension HLD (hyperlipidemia) Incomplete right bundle branch block Obesity Type 2 diabetes mellitus Home Medications sitagliptin phosphate 50 mg-metformin 1,000 mg tablet 1 tab PO BID 07/31/17 [History Last Taken Unknown] escitalopram oxalate 10 mg tablet 10 mg PO DAILY 90 days ##90 08/03/17 [History Last Taken Unknown] montelukast 10 mg tablet 10 mg PO DAILY 90 days ##90 08/03/17 [History Last Taken Unknown] empagliflozin 25 mg tablet (Jardiance) 25 mg PO DAILY 05/07/18 [History Last Taken Unknown] aspirin 81 mg tablet,delayed release (Adult Aspirin Regimen) 162 mg PO DAILY 05/12/21 [History Last Taken Unknown] hydrochlorothiazide 25 mg tablet 25 mg PO QDAY #90 tabs 06/16/22 [Rx Last Taken Unknown] metoprolol succinate 50 mg tablet,extended release 24 hr 50 mg PO QDAY #90 tabs 06/16/22 [Rx Last Taken Unknown] ramipril 5 mg capsule 5 mg PO BID #180 caps 06/16/22 [Rx Last Taken Unknown] glimepiride 4 mg tablet 4 mg PO QDAY 07/28/22 [History Last Taken Unknown] pravastatin 20 mg tablet 20 mg PO QDAY #90 tabs 07/28/22 [Rx Last Taken Unknown] cholecalciferol (vitamin D3) 50 mcg (2,000 unit) tablet (D3 DOTS) 50 mcg PO DAILY 10/19/22 [History Last Taken Unknown] meclizine 25 mg tablet 25 mg PO DAILY 10/19/22 [History Last Taken Unknown] Allergy/AdvReac Type Severity Reaction Status Date / Time atorvastatin [From Lipitor] AdvReac Severe Myalgias Verified 10/19/22 06:54 Penicillins AdvReac Severe Hives Verified 10/19/22 06:54 Family History Father Heart disease Myocardial infarction Mother Breast cancer Colon cancer Brother Hypertension Brother Diabetes Surgical History H/O coronary artery bypass surgery (10/12/09) History of open reduction and internal fixation (ORIF) procedure (2020) Social History Smoking Status: Never smoker alcohol intake: never caffeine: Yes Type: tea Number of servings: 1 what type of physical activity do you participate in: none ROS ROS ED Constitutional Constitutional ED: Reports anorexia; Denies chills or fever(s) Eyes Eyes: Denies change in vision or diplopia ENT ENT ED: Denies rhinorrhea or sore throat Cardiovascular Cardiovascular: Denies chest pain or palpitations Respiratory/Chest Respiratory/Chest: Denies cough or dyspnea Gastrointestinal Gastrointestinal: Reports abdominal pain, diarrhea, nausea and vomiting; Denies melena Genitourinary Genitourinary ED: Denies dysuria or hematuria Musculoskeletal Musculoskeletal: Reports back pain; Denies neck pain Integumentary Denies abscess or rash Neurologic Neurologic: Denies headache(s), paresthesias or weakness Psychiatric Psychiatric: Denies anxiety or suicidal thoughts EXAM Physical Exam Const Vital Signs: 10/19/22 06:49 Temperature 98.5 F Temperature Source Temporal Pulse Rate 67 Respiratory Rate 18 Blood Pressure 165/88 H Blood Pressure Mean 113 Pulse Ox 98 Positive well nourished and well developed General Appearance ED: well developed and NAD HEENT Reports moist mucous membranes normocephalic and atraumatic Eyes PERRL and EOMs intact bilaterally Neck full ROM and supple Resp normal respiratory effort and clear to auscultation bilaterally Cardio regular rate, regular rhythm and no murmurs GI non-distended GI Narrative: Tender right upper quadrant and epigastrium otherwise benign abdomen. No guarding or rebound. Auscultation: normoactive bowel sounds Palpation: soft Back/Spine no CVA tenderness General Back: other FROM Extremity normal to inspection General Extremety ED: Negative for edema, pulses abnormal or tenderness General Extremity: Negative for edema or pulses abnormal Neuro oriented x3, CN's II-XII intact bilaterally and no sensory deficits noted Sensorium / Orientation: awake and alert Motor Exam: strength 5/5 throughout Skin no rashes or lesions noted and no wounds MDM MDM MDM Narrative Medical decision making narrative: Labs show a mild leukocytosis, his liver enzymes and lipase are within normal limits, I obtained an ultrasound suspicious for cholecystitis, it shows significant number of gallstones, equivocal findings for acute cholecystitis radiographically but clinically I think that is what is going on here. Discussed with Dr. Gomez, who admit the patient and recommending Cipro and Flagyl. Patient was in a bit of pain giving additional analgesics. He is clinically stable. Lab Data Attestation: I reviewed the patient's lab results. Labs: Laboratory Results - last 24 hr 10/19/22 06:55 WBC 12.3 H RBC 5.67 Hgb 16.4 Hct 49.7 MCV 87.7 MCH 28.9 MCHC 33.0 RDW Std Deviation 45.3 H RDW Coeff of Sumit 14.1 Plt Count 206 MPV 11.2 Immature Gran % (Auto) 0.600 Neut % (Auto) 72.3 H Lymph % (Auto) 16.2 L Hall % (Auto) 7.0 Eos % (Auto) 3.6 Baso % (Auto) 0.3 Absolute Neuts (auto) 8.9 H Absolute Lymphs (auto) 1.98 Nucleated RBC % 0 Sodium 137 Potassium 4.3 Chloride 103 Carbon Dioxide 29.0 Anion Gap 5 BUN 23 H Creatinine 1.18 Estim Creat Clear Calc 70.33 Est GFR (MDRD) Af Amer 80 Est GFR (MDRD) Non-Af 66 BUN/Creatinine Ratio 19.5 Glucose 200 H Calcium 11.1 H Total Bilirubin 0.50 AST 23 ALT 34 Alkaline Phosphatase 44 L Total Protein 7.3 Albumin 3.6 Globulin 3.7 Albumin/Globulin Ratio 1.0 Lipase 55 Radiography Diagnostic Testing: Clinical Impression(s) from Imaging Studies Gallbladder Ultrasound 10/19/22 07:10 IMPRESSION: Hepatomegaly and fatty infiltration of the liver. Multiple gallstones. Electronically Signed: Nile Batista MD at 8:58 EDT , My interpretation of the US agrees with that of the radiologist. Management Discussion w/another healthcare provider: [employer] (surgery) Discharge Plan Triage Chief Complaint: Abd Pain ED Provider: Adam Pang Dx/Rx/DC Orders Clinical Impression: Acute calculous cholecystitis Prescriptions: No Action montelukast 10 mg tablet 10 mg PO DAILY 90 Days Qty: 90 Patient Comments: TAKE 1 TABLET BY MOUTH AT BEDTIME escitalopram oxalate 10 mg tablet 10 mg PO DAILY 90 Days Qty: 90 Patient Comments: TAKE 1 TABLET BY MOUTH DAILY sitagliptin phos-metformin 50-1,000 mg tablet 1 tab PO BID glimepiride 4 mg tablet 4 mg PO QDAY Rx Instructions: Stopping glimepiride and starting Ozempic on Sunday07/30/2022 Jardiance 25 mg tablet 25 mg PO DAILY aspirin [Adult Aspirin Regimen] 81 mg tablet,delayed release (DR/EC) 162 mg PO DAILY Rx Instructions: 2 tabs qam pravastatin 20 mg tablet 20 mg PO QDAY Qty: 90 3RF meclizine 25 mg tablet 25 mg PO DAILY cholecalciferol (vitamin D3) [D3 DOTS] 50 mcg (2,000 unit) tablet 50 mcg PO DAILY hydrochlorothiazide 25 mg tablet 25 mg PO QDAY Qty: 90 3RF ramipril 5 mg capsule 5 mg PO BID Qty: 180 3RF metoprolol succinate 50 mg tablet extended release 24 hr 50 mg PO QDAY Qty: 90 3RF Primary Care Provider: Emi Dubose Referrals: Emi Dubose, DO [Primary Care Provider] - Disposition Disposition: Acute Care Hospital [facility]
[2022-10-19] MEDS: Ondansetron 4 MG/2 ML Vial IV ×2 (07:19→16:52)
[2022-10-19] MEDS: 0.9% Normal Saline 1,000 ML 125 ML IV (07:19)
[2022-10-19] MEDS: Morphine 4 MG/ML Syringe IV (07:19)
[2022-10-19 07:25] LABS: Absolute Lymphocyte Count 1.98 X10^3/uL (0.83-4.51); Absolute Neutrophil Count 8.9 X10^3/uL (2.0-7.7); Basophil# 0.04 X10^3/uL; Basophil% 0.3 % (0-1); Eosinophil# 0.44 X10^3/uL; Eosinophils% 3.6 % (0-5); Hematocrit 49.7 % (40-54); Hemoglobin 16.4 g/dL (13.0-16.5); Lymphocyte # 1.98 X10^3/ul (0.83-4.51); Lymphocyte % 16.2 % (19-41); Mean Corpuscular Hgb 28.9 pg (27.0-32.0); Mean Corpuscular Volume 87.7 fL (80-94); Mean Platelet Vol. 11.2 fl (6.2-12.0); Monocyte# 0.86 X10^3/uL; NRBC Flagged by Analyzer 0 % (0-5); Neutrophil # 8.87 X10^3/uL (2.7-7.7); Neutrophil % 72.3 % (47-70); Platelet Count 206 K/mm3 (150-450); RBC Distribution Width CV 14.1 % (11.6-14.6); RBC Distribution Width SD 45.3 fl (35.1-43.9); Red Blood Count 5.67 M/mm3 (4.6-6.2); White Blood Count 12.3 K/mm3 (4.4-11.0)
[2022-10-19 07:38] LABS: AST(SGOT) 23 U/L (15-37); Alanine Aminotransfer ALT/SGPT 34 U/L (16-61); Albumin, Serum 3.6 g/dL (3.2-5.0); Alkaline Phosphatase 44 U/L (45-117); Anion Gap 5 (5-15); BUN 23 mg/dL (7-18); BUN/Creat Ratio 19.5 RATIO (10-20); Calcium,Total 11.1 mg/dL (8.5-10.1); Chloride 103 mmol/L (98-107); Creatinine, Serum 1.18 mg/dL (0.70-1.30); EST Glomerular Filtration Rate 66 mL/min (>60); Est Glom Filt Rate - Afr Amer 80 mL/min (>60); Estimated Creatinine Clearance 70.33 ml/min; Globulin 3.7 g/dL (2.2-4.2); Glucose 200 mg/dL (74-106); Lipase 55 U/L (13-75); Potassium 4.3 mmol/L (3.5-5.1); Protein, Total 7.3 g/dL (6.4-8.2); Sodium Level 137 mmol/L (136-145)
[2022-10-19] MEDS: Ciprofloxacin 400 MG/200 ML BAG 200 MG IV ×2 (09:20→21:44)
[2022-10-19] MEDS: Ketorolac 15 MG/ML Vial IV ×2 (09:20→18:11)
--- NOTE | 2022-10-19 09:26 | NURSING ---
[facility] [place] ACUTE CHOLECYSTITIS
[2022-10-19] MEDS: Metoclopramide 10 MG/2 ML Vial 5 MG IV (09:40)
[2022-10-19] MEDS: fentaNYL 100 MCG/2 ML Ampul 50 MCG IV (09:41)
[2022-10-19] MEDS: metroNIDAZOLE 500 MG/100 ML BAG 100 MG IV ×2 (10:35→20:39)
--- NOTE | 2022-10-19 11:02 | EKG12_ITS ---
Test Reason : PRE OP Blood Pressure : / mmHG Vent. Rate : 059 BPM Atrial Rate : 059 BPM P-R Int : 156 ms QRS Dur : 108 ms QT Int : 418 ms P-R-T Axes : -26 035 095 degrees QTc Int : 413 ms Sinus bradycardia Anteroseptal infarct , age undetermined Abnormal ECG Confirmed by MARVIN CHAVEZ ([id number]), newspaper managing editor MIRLANDE MAIN ([id number]) on 10/24/2022 9:23:01 AM Referred By: TESSA Confirmed By:MARVIN CHAVEZ
--- NOTE | 2022-10-19 11:19 | PCM.HP.STD ---
[facility] - General General Date of Admission: 10/19/22 Date of Service: 10/19/22 Chief Complaint: Abdominal pain HPI Narrative PRAVEENA BENJAMIN, is a 61 M who presents with a 3 day history of worsening abdominal pain. Patient notes 3 days ago he started having upper abdominal pain worse in the right upper quadrant than on the left. Patient notes the pain has been colicky and comes in waves. He does not attribute the pain/discomfort to food. He notes the pain progressed last night and intensified to an 8 out of 10 at 0200 AM. Patient notes he was unable to sleep. he notes the pain this morning caused nausea and vomiting. Patient notes the pain radiates into the patient's back on the right side. He states he is moving and thought his back pain was possibly from picking up boxes. Patient notes he had scrambled eggs last night around 5 pm. He notes around 8 pm is when the pain intensified. Patient notes over the last 3 days he has not had much of an appetite. Patient describes the pain also as a hollow/nagging feeling in the pit of your stomach, however he notes again the majority of his pain is in the right upper quadrant. He denies any previous gallbladder episodes. He denies having these specific symptoms previously. Patient denies any previous abdominal surgeries. He notes in 2009 he had cardiac bypass x 3 vessel surgery. His regional sales representative is Dr. Parra. He recently had an appointment in July where from a cardiac standpoint, the patient seems to be doing well. He denies previous history of myocardial infarction, stroke. He states he takes 2 81mg aspirin daily. Patient notes he has also taken 2 Advil every morning for many years for aches and pains. 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 Patient notes he was recently taken off of Ozempic 3 weeks ago due to the patient not tolerating this specific medication or the increase in dosage that took place. He notes that his bowel have never been right since the medication was added and taken away. Patient notes he had horrible diarrhea and a cramping sensation throughout his entire abdomen while he was taking the medication. Patient states this current pain and symptoms are different than what he was experiencing on Ozempic. Patient is on oral medication for diabetes. He does not take insulin. Patient does have an allergy to PCN. RUQ u/s demonstrates gallstones, negative Thornton's sign, no pericholecystic fluid, normal gallbladder wall at 1.9 mm. Liver enzymes are within normal limits. Patient does have an elevated WBC at 12.3. [facility] Medical History Atherosclerotic heart disease of unga coronary artery without angina pectoris Essential (primary) hypertension HLD (hyperlipidemia) Incomplete right bundle branch block Obesity Type 2 diabetes mellitus Home Medications sitagliptin phosphate 50 mg-metformin 1,000 mg tablet 1 tab PO BID 07/31/17 [History Last Taken Unknown] escitalopram oxalate 10 mg tablet 10 mg PO DAILY 90 days ##90 08/03/17 [History Last Taken Unknown] montelukast 10 mg tablet 10 mg PO DAILY 90 days ##90 08/03/17 [History Last Taken Unknown] empagliflozin 25 mg tablet (Jardiance) 25 mg PO DAILY 05/07/18 [History Last Taken Unknown] aspirin 81 mg tablet,delayed release (Adult Aspirin Regimen) 162 mg PO DAILY 05/12/21 [History Last Taken Unknown] hydrochlorothiazide 25 mg tablet 25 mg PO QDAY #90 tabs 06/16/22 [Rx Last Taken Unknown] metoprolol succinate 50 mg tablet,extended release 24 hr 50 mg PO QDAY #90 tabs 06/16/22 [Rx Last Taken Unknown] ramipril 5 mg capsule 5 mg PO BID #180 caps 06/16/22 [Rx Last Taken Unknown] glimepiride 4 mg tablet 4 mg PO QDAY 07/28/22 [History Last Taken Unknown] pravastatin 20 mg tablet 20 mg PO QDAY #90 tabs 07/28/22 [Rx Last Taken Unknown] cholecalciferol (vitamin D3) 50 mcg (2,000 unit) tablet (D3 DOTS) 50 mcg PO DAILY 10/19/22 [History Last Taken Unknown] meclizine 25 mg tablet 25 mg PO DAILY 10/19/22 [History Last Taken Unknown] Allergy/AdvReac Type Severity Reaction Status Date / Time atorvastatin [From Lipitor] AdvReac Severe Myalgias Verified 10/19/22 06:54 Penicillins AdvReac Severe Hives Verified 10/19/22 06:54 Family History Father Heart disease Myocardial infarction Mother Breast cancer Colon cancer Brother Hypertension Brother Diabetes Surgical History H/O coronary artery bypass surgery (10/12/09) History of open reduction and internal fixation (ORIF) procedure (2020) Social History Smoking Status: Never smoker alcohol intake: never caffeine: Yes Type: tea Number of servings: 1 what type of physical activity do you participate in: none ROS Constitutional Constitutional: Reports systems reviewed and no addt'l complaints, except as documented Eyes Eyes: Reports systems reviewed and no addt'l complaints, except as documented ENT HEENT: Reports systems reviewed and no addt'l complaints, except as documented Cardiovascular Cardiovascular: Reports systems reviewed and no addt'l complaints, except as documented Respiratory/Chest Respiratory/Chest: Reports systems reviewed and no addt'l complaints, except as documented Gastrointestinal Gastrointestinal: Reports systems reviewed and no addt'l complaints, except as documented Genitourinary Genitourinary: Reports systems reviewed and no addt'l complaints, except as documented Musculoskeletal Musculoskeletal: Reports systems reviewed and no addt'l complaints, except as documented Integumentary Integumentary: Reports systems reviewed and no addt'l complaints, except as documented Neurologic Neurologic: Reports systems reviewed and no addt'l complaints, except as documented Psychiatric Psychiatric: Reports systems reviewed and no addt'l complaints, except as documented Endocrine Endocrinology: Reports systems reviewed and no addt'l complaints, except as documented Hematologic/Lymphatic Hematologic/Lymphatic: Reports systems reviewed and no addt'l complaints, except as documented Allergic/Immunologic Allergic/Immunologic: Reports systems reviewed and no addt'l complaints, except as documented Vital Signs Vital Signs Vital Signs: 10/19/22 06:49 10/19/22 08:49 10/19/22 09:08 Temperature 98.5 F 97.4 F L Temperature Source Temporal Temporal Pulse Rate 67 84 64 Respiratory Rate 18 14 14 Respiratory Effort Respiratory Depth Respiratory Pattern Blood Pressure 165/88 H 141/88 H 135/76 H Blood Pressure Mean 113 105 95 Blood Pressure Source Blood Pressure Position Blood Pressure Location Pulse Ox 98 99 98 Oxygen Delivery Method Room Air Room Air 10/19/22 10:26 10/19/22 10:56 Temperature 97.8 F Temperature Source Oral Pulse Rate 60 Respiratory Rate 16 Respiratory Effort Normal Non-Labored Respiratory Depth Normal Respiratory Pattern Normal Blood Pressure 156/80 H Blood Pressure Mean 105 Blood Pressure Source Monitor Blood Pressure Position Semi-Fowlers Blood Pressure Location Left Arm Pulse Ox 98 Oxygen Delivery Method Room Air Room Air Weight Weight: 255 lb Body Mass Index (BMI) 34.5 Physical Exam Const alert, oriented x3 and no apparent distress HEENT normocephalic Eyes PERRL Neck full ROM Lymph Lymphatic: no lymphadenopathy noted Chest inspection of chest normal Chest Narrative: Nicely healed sternal incision Resp normal respiratory effort and clear to auscultation bilaterally Cardio regular rate and regular rhythm GI GI Narrative: Negative Thornton's sign Inspection: central obesity; Negative for incision Auscultation: hypoactive bowel sounds Palpation: tender RUQ and guarding RUQ no CVA tenderness Back/Spine no CVA tenderness Extremity normal to inspection General Extremity: Negative for edema Skin no rashes or lesions noted Neuro no focal motor deficits and no sensory deficits noted Psych Appearance: grossly normal Speech: normal speech Results Lab / Micro Data 10/19/22 06:55 10/19/22 06:55 Labs: Laboratory Results - last 24 hr 10/19/22 06:55: WBC 12.3 H, RBC 5.67, Hgb 16.4, Hct 49.7, MCV 87.7, MCH 28.9, MCHC 33.0, RDW Std Deviation 45.3 H, RDW Coeff of Sumit 14.1, Plt Count 206, MPV 11.2, Immature Gran % (Auto) 0.600, Neut % (Auto) 72.3 H, Lymph % (Auto) 16.2 L, [place] % (Auto) 7.0, Eos % (Auto) 3.6, Baso % (Auto) 0.3, Absolute Neuts (auto) 8.9 H, Absolute Lymphs (auto) 1.98, Nucleated RBC % 0, Sodium 137, Potassium 4.3, Chloride 103, Carbon Dioxide 29.0, Anion Gap 5, BUN 23 H, Creatinine 1.18, Estim Creat Clear Calc 70.33, Est GFR (MDRD) Af Amer 80, Est GFR (MDRD) Non-Af 66, BUN/Creatinine Ratio 19.5, Glucose 200 H, Calcium 11.1 H, Total Bilirubin 0.50, AST 23, ALT 34, Alkaline Phosphatase 44 L, Total Protein 7.3, Albumin 3.6, Globulin 3.7, Albumin/Globulin Ratio 1.0, Lipase 55 Radiology Impression Gallbladder Ultrasound 10/19/22 07:10 IMPRESSION: Hepatomegaly and fatty infiltration of the liver. Multiple gallstones. Electronically Signed: Nile Batista MD at 8:58 EDT , Assessment & Plan Assessment/Plan (1) Acute calculous cholecystitis: PLAN: I am seeing this patient in conjunction with Dr. Gomez. He will independently evaluate this patient. Patient has had a 3 day history of upper abdominal pain worse in the RUQ radiating into his back. Patient is a non-insulin dependent diabetic with an elevated WBC with a left shift. His liver enzymes are unremarkable. RUQ demonstrates gallstones. Differential diagnosis includes acute calculus cholecystitis v. biliary colic v. GERD with erythema or ulceration. We will plan to admit this patient under observation. Dr. Gomez will plan to perform a laparoscopic cholecystectomy with intraoperative cholangiogram tomorrow afternoon. Procedure details, risks and benefits have been thoroughly explained. Patient is also aware that this may or may not resolve his pain. If that patient continues to have symptoms following the procedure, an upper scope will be recommended. Patient is also aware that by removing the gallbladder, he may develop loose stools. Patient and his have had the opportunity to ask and have questions answered. Patient verbally understands and agrees with the plan. Patient would like to proceed with admission and planned cholecystectomy tomorrow. Thank you for allowing me to participate in this patient's care. Charges/Coding Visit Charges OBSV E&M: 14628 Observ/hosp same date L1
[2022-10-19] MEDS: Lactated Ringers 1,000 ML 75 ML IV (12:54)
[2022-10-19] MEDS: Empagliflozin 25 MG Tablet PO (12:54)
[2022-10-19] MEDS: hydroCHLOROthiazide 25 MG Tablet PO (12:54)
[2022-10-19] MEDS: Montelukast 10 MG Tablet PO (12:55)
[2022-10-19] MEDS: Ramipril 5 MG Capsule PO ×2 (12:55→20:39)
[2022-10-19] MEDS: LINAGLIPTIN 5 MG TABLET PO (13:02)
[2022-10-19] MEDS: Morphine 2 MG/ML Syringe IV ×3 (15:49→21:31)
[2022-10-19] MEDS: metFORMIN HCl 1,000 MG Tablet 1000 MG PO (16:52)
[2022-10-19] MEDS: oxyCODONE 5 MG Tablet PO (16:52)
[2022-10-19] MEDS: 0.9% Saline Lock 10 ML Syringe IV (21:31)
[2022-10-20] VITALS (13 sets, daily range): BP systolic 93–139; BP diastolic 52–76; PULSE 62–99; RESP 14–20; TEMP 36.6–39.2; O2SAT 92–99; BMI 34.5
--- NOTE | 2022-10-20 | GALL_PTH ---
PATIENT: PRAVEENA BENJAMIN LOC: MS3 U#:[id number] AGE/SX: 61/M ROOM: TX322 RE10/19/[address]: Dr. Trevin Gomez MD : 1960 BED: 1 DIS: 10/21/2022 SPEC #: [id number] RECD: 10/23/22 10:32 STATUS: ADONAY VELASQUEZBuddy #: [id number] JOELLE: 10/20/22 00:[address]: Trevin Gomez DEPT: SURGICAL PATHOLOGY RECD BY: Ruperto Kan ENTERED: 10/23/22 10:33 SP TYPE: OBI BARRETO DR: Emi Dubose DO Tissues: Gallbladder, NOS Procedures: Surgery Specimen Level III HEADER OPERATION: Laparoscopic cholecystectomy with IOC PRE-OP DIAGNOSIS: Acute calculus cholecystitis TISSUE SUBMITTED: Gallbladder MICROSCOPIC DIAGNOSIS Gallbladder, cholecystectomy: Acute and chronic cholecystitis and cholelithiasis. AM:janet 10/24/2022 MICROSCOPIC DESCRIPTION Slides are reviewed. GROSS DESCRIPTION Received is one container labeled with the patient's name and designated gallbladder. The specimen consists of a gallbladder measuring 7.5 x 4.0 x 3.0 cm. The external surface is smooth and glistening. Focally, it is granular, hemorrhagic and contains cautery artifact. The lumen of the gallbladder contains yellow-green mucoid bile and multiple black calculi ranging in size from <0.1 to 2.4 cm in greatest dimension. The mucosa is bile-stained and without any mass lesions. The gallbladder wall averages 0.2 cm in thickness and is free of mass lesions. Crisis Nurse sections of the gallbladder and the cystic duct at margin of resection are submitted in one cassette. / AM:janet 10/23/2022 TC:2 [facility]: [id number]
[2022-10-20] MEDS: Morphine 2 MG/ML Syringe IV ×4 (01:20→17:57)
[2022-10-20] MEDS: Lactated Ringers 1,000 ML 75 ML IV ×2 (03:03→15:00)
--- NOTE | 2022-10-20 05:00 | RAD_ITS ---
EXAM: XR CHEST, 1 VIEW CLINICAL INDICATION: preoperative TECHNIQUE: Frontal view of the chest. COMPARISON: Previous chest radiograph report of 10/22/2009. FINDINGS: LUNGS AND PLEURAL SPACES: Unremarkable. No consolidation or edema. No pneumothorax. No effusion. Lungs are not hyperinflated. HEART: Mildly enlarged with left ventricular configuration. Normal pulmonary vasculature. Previous CABG. MEDIASTINUM: Previous median sternotomy. Thoracic aorta is minimally elongated and calcific. BONES/JOINTS: Lower thoracic degenerative spurring. No acute osseous abnormality. SOFT TISSUES: Unremarkable. RAD/Chest 1 View (Portable) IMPRESSION: Findings of previous CABG. No radiographic evidence of acute cardiopulmonary disease. Electronically Signed: Santo Otto MD at 4:47 EDT ,
[2022-10-20] MEDS: metroNIDAZOLE 500 MG/100 ML BAG 100 MG IV ×3 (05:46→20:55)
[2022-10-20 07:24] LABS: Basophil# 0.04 X10^3/uL; Basophil% 0.3 % (0-1); Eosinophil# 0.07 X10^3/uL; Eosinophils% 0.5 % (0-5); Hematocrit 45.5 % (40-54); Hemoglobin 14.8 g/dL (13.0-16.5); Lymphocyte % 6.1 % (19-41); Mean Corp Hgb Conc 32.5 g/dL (32-36); Mean Corpuscular Hgb 29.4 pg (27.0-32.0); Mean Corpuscular Volume 90.3 fL (80-94); Mean Platelet Vol. 10.7 fl (6.2-12.0); Monocyte# 1.22 X10^3/uL; Monocyte% 9.3 % (0-10); NRBC Flagged by Analyzer 0 % (0-5); Neutrophil # 10.97 X10^3/uL (2.7-7.7); Neutrophil % 83.3 % (47-70); Platelet Count 159 K/mm3 (150-450); RBC Distribution Width CV 14.2 % (11.6-14.6); RBC Distribution Width SD 46.7 fl (35.1-43.9); Red Blood Count 5.04 M/mm3 (4.6-6.2); White Blood Count 13.2 K/mm3 (4.4-11.0)
--- NOTE | 2022-10-20 07:37 | PN.SURG_ITS ---
Subjective Subjective Patient continues to have right upper quadrant pain Objective Data Objective Data Vital Signs: Vital Signs Temp Pulse Resp BP Pulse Ox O2 Del Method 98.1 F 62 14 139/74 H 99 Room Air 10/20/22 02:30 10/20/22 02:30 10/20/22 02:30 10/20/22 02:30 10/20/22 02:30 10/20/22 02:32 Oxygen Delivery Method Room Air Weight: 255 lb Body Mass Index (BMI) 34.5 Intake & Output: Intake and Output for Last 24 Hours 10/18/22 10/19/22 10/20/22 23:59 23:59 23:59 Intake Total 1462.5 / 1862.5 1700 / 1700 Balance 1462.5 / 1862.5 1700 / 1700 Lab / Micro Data 10/20/22 07:05 10/19/22 06:55 Labs: Laboratory Results - last 24 hr 10/19/22 06:55: Sodium 137, Potassium 4.3, Chloride 103, Carbon Dioxide 29.0, Anion Gap 5, BUN 23 H, Creatinine 1.18, Estim Creat Clear Calc 70.33, Est GFR (MDRD) Af Amer 80, Est GFR (MDRD) Non-Af 66, BUN/Creatinine Ratio 19.5, Glucose 200 H, Calcium 11.1 H, Total Bilirubin 0.50, AST 23, ALT 34, Alkaline Phosphatase 44 L, Total Protein 7.3, Albumin 3.6, Globulin 3.7, Albumin/Globulin Ratio 1.0, Lipase 55 10/20/22 07:05: WBC 13.2 H, RBC 5.04, Hgb 14.8, Hct 45.5, MCV 90.3, MCH 29.4, MCHC 32.5, RDW Std Deviation 46.7 H, RDW Coeff of Sumit 14.2, Plt Count 159, MPV 10.7, Immature Gran % (Auto) 0.500, Neut % (Auto) 83.3 H, Lymph % (Auto) 6.1 L, [place] % (Auto) 9.3, Eos % (Auto) 0.5, Baso % (Auto) 0.3, Absolute Neuts (auto) 11.0 H, Absolute Lymphs (auto) 0.80 L, Nucleated RBC % 0 Radiography Diagnostic Testing: Radiology Impression Gallbladder Ultrasound 10/19/22 07:10 IMPRESSION: Hepatomegaly and fatty infiltration of the liver. Multiple gallstones. Electronically Signed: Nile Batista MD at 8:58 EDT , Chest X-Ray 10/20/22 05:00 IMPRESSION: Findings of previous CABG. No radiographic evidence of acute cardiopulmonary disease. Electronically Signed: Santo Otto MD at 4:47 EDT , Physical Exam Const oriented x3 and no apparent distress Resp normal respiratory effort Cardio regular rate and regular rhythm GI soft to palpation Palpation: tender RUQ Assessment & Plan Assessment/Plan (1) Acute calculous cholecystitis: PLAN: Patient continues to have right upper quadrant pain. Ultrasound revealed gallstones and the patient has a elevated white count as well. Plan for laparoscopic cholecystectomy this afternoon. I discussed the procedure in detail with the patient. I discussed the risks, benefits, and alternatives of the procedure. I discussed the risks including but not limited to bleeding, infection, injury to surrounding organs such as the liver, bile duct, bowels. I did discuss the possibility of having to convert to an open procedure as well as the possibility that if any injuries occurred this may necessitate further surgery at a tertiary care center. Trevin Gomez MD Pager: [facility] [address] [place] [address], [address] [place] [address] Office:
[2022-10-20 07:45] LABS: Hemoglobin A1c 8.2 % (3.8-5.6)
[2022-10-20 08:00] LABS: ALB/GLOB Ratio 0.9 RATIO (0.9-2.4); AST(SGOT) 20 U/L (15-37); Alanine Aminotransfer ALT/SGPT 24 U/L (16-61); Albumin, Serum 3.1 g/dL (3.2-5.0); Alkaline Phosphatase 40 U/L (45-117); Anion Gap 2 (5-15); BUN 18 mg/dL (7-18); BUN/Creat Ratio 14.8 RATIO (10-20); Calcium,Total 9.4 mg/dL (8.5-10.1); Chloride 102 mmol/L (98-107); Creatinine, Serum 1.22 mg/dL (0.70-1.30); EST Glomerular Filtration Rate 64 mL/min (>60); Est Glom Filt Rate - Afr Amer 77 mL/min (>60); Estimated Creatinine Clearance 68.02 ml/min; Globulin 3.5 g/dL (2.2-4.2); Glucose 144 mg/dL (74-106); Potassium 4.5 mmol/L (3.5-5.1); Protein, Total 6.6 g/dL (6.4-8.2); Sodium Level 134 mmol/L (136-145)
[2022-10-20] MEDS: Acetaminophen 325 MG Tablet 650 MG PO ×2 (08:07→20:37)
[2022-10-20] MEDS: 0.9% Saline Lock 10 ML Syringe IV ×2 (09:10→17:57)
[2022-10-20] MEDS: Ciprofloxacin 400 MG/200 ML BAG 200 MG IV ×2 (11:08→22:47)
[2022-10-20] MEDS: Lactated Ringers 1,000 ML 15 ML IV (13:21)
[2022-10-20 13:42] LABS: Bedside Glucose 119 mg/dL (74-106)
--- NOTE | 2022-10-20 15:22 | RAD_ITS ---
CLINICAL HISTORY: Male, 61 years old. Pain PROCEDURE: CHOLANGIOGRAM - intraoperative FLUOROSCOPY TIME (if supplied): ( ) 13.6 seconds Placement of the catheter and the procedure were performed by: Operating surgeon Fluoroscopy was provided by cardiovascular radiologic technologist, who was present in the room time of the procedure. TECHNIQUE: ( Fluoroscopic guided intraoperative cholangiogram was performed in the usual fashion. FINDINGS: During the procedure, there were 77 fluoroscopic guided images obtained to confirm findings during surgery.. For more complete information recommend correlation with surgical notes RAD/Cholangiogram/ O R,Initial IMPRESSION: Fluoroscopic guided intraoperative cholangiogram Electronically Signed: Neel Saha MD at 23:00 EDT ,
[2022-10-20] MEDS: Lidocaine 1%/Epi 1:100 (30ml) 30 ML VIAL (15:59)
--- NOTE | 2022-10-20 16:13 | PCM.OPRPT ---
Report of Operation Date of Procedure: 10/20/22 Pre-Operative Diagnosis: Acute cholecystitis Post-Operative Diagnosis: Acute cholecystitis Surgery/Procedure Performed:: Laparoscopic cholecystectomy Type of Anesthesia: General/Regional Specimen's removed: Gallbladder Estimated Blood Loss (mL): 100 Description of Procedure: After obtaining informed consent patient was brought back to the operating room. General anesthesia was induced. The abdomen was prepped and draped in usual sterile fashion. A small midline incision was made superior to the umbilicus and deepened to the level of fascia. The fascia was elevated and incised. Next the peritoneum was elevated and incised in the same fashion. Finger sweep was performed and the Quintana trocar was placed into the abdomen. The balloon was inflated. The abdomen was inflated to 15 mmHg. Next a camera was introduced into the abdomen and the abdomen was inspected. Next under direct visualization three 5-mm ports were placed one subxiphoid and 2 subcostal. Next the gallbladder was elevated and retracted toward the right shoulder. The peritoneum was stripped from the gallbladder. The infundibulum was located and retracted laterally. Next the triangle of Calot was dissected and the cystic duct and cystic artery were identified. Cholangiograms were attempted. The Rodriguez clamp was used to clamp across the infundibulum and the catheter needle was inserted into the gallbladder. Under fluoroscopy contrast was instilled into the gallbladder but the cystic duct appeared obstructed. Three hemolock clips were placed across the cystic duct. The cystic duct was then divided leaving 2 clips on the stump. The cystic artery was clipped and divided in the same fashion. The hook cautery was then used to take the gallbladder off of the gallbladder bed. Hemostasis was obtained. There was significant oozing from the gallbladder fossa as well as from the fat anterior to the gallbladder. Argon beam cauterization was used to maintain hemostasis. Gallbladder fossa was irrigated and no active bleeding or bile leakage was noted. Next the camera was introduced in the subxiphoid port. An Endopouch bag was placed through the umbilical port and the gallbladder was placed into it. The gallbladder was then removed through the umbilical incision. The camera was then reinserted through the umbilical port. The gallbladder fossa was inspected once more and noted to be hemostatic with no leaking bile. The abdomen was suctioned dry. The 5 mm ports were removed under direct visualization. The umbilical port was then removed and the air was removed from the abdomen. Next using an 0 Vicryl suture the umbilical fascia was closed in a [id number] fashion. The umbilical port site was irrigated local anesthetic was administered to all the incisions. All the incisions were closed with interrupted subcuticular 4-0 Monocryl sutures followed by Steri-Strips and dressings. The patient was awoken and taken to PACU in stable condition. Admit VTE Documentation VTE Mechan Device Prophylaxis: SCD's
[2022-10-20] MEDS: Sugammadex Sodium 200 MG/2 ML VIAL IV (16:24)
[2022-10-20 17:03] LABS: Bedside Glucose 158 mg/dL (74-106)
[2022-10-20] MEDS: oxyCODONE 5 MG Tablet PO (20:37)
[2022-10-21] VITALS (7 sets, daily range): BP systolic 111–123; BP diastolic 54–61; PULSE 75–85; RESP 18–20; TEMP 36.4–38.1; O2SAT 93–96
[2022-10-21] MEDS: oxyCODONE 5 MG Tablet PO ×2 (04:43→14:13)
[2022-10-21] MEDS: metroNIDAZOLE 500 MG/100 ML BAG 100 MG IV (04:59)
[2022-10-21] MEDS: Acetaminophen 325 MG Tablet 650 MG PO ×2 (07:13→13:15)
[2022-10-21 08:24] LABS: Absolute Neutrophil Count 8.4 X10^3/uL (2.0-7.7); Basophil# 0.02 X10^3/uL; Basophil% 0.2 % (0-1); Differential Indicated SCAN CRITERIA MET; Hematocrit 43.9 % (40-54); Hemoglobin 14.2 g/dL (13.0-16.5); Lymphocyte % 3.1 % (19-41); Mean Corp Hgb Conc 32.3 g/dL (32-36); Mean Corpuscular Hgb 28.9 pg (27.0-32.0); Mean Corpuscular Volume 89.2 fL (80-94); Mean Platelet Vol. 11.1 fl (6.2-12.0); Monocyte# 0.96 X10^3/uL; Monocyte% 9.9 % (0-10); NRBC Flagged by Analyzer 0 % (0-5); Neutrophil # 8.35 X10^3/uL (2.7-7.7); Neutrophil % 86.2 % (47-70); POSITIVE DIFFERENTIAL YES; Platelet Count 126 K/mm3 (150-450); RBC Distribution Width CV 14.2 % (11.6-14.6); RBC Distribution Width SD 46.1 fl (35.1-43.9); Red Blood Count 4.92 M/mm3 (4.6-6.2); White Blood Count 9.7 K/mm3 (4.4-11.0)
--- NOTE | 2022-10-21 08:31 | PN.SURG_ITS ---
Subjective Subjective Patient seen and examined during AM rounds. He describes feeling better today than he did preoperatively. He tolerated his clear liquids without difficulty and expresses an ongoing appetite/desire for more regular food. He has only mild soreness at his incisions this morning. Objective Data Objective Data Vital Signs: Vital Signs Temp Pulse Resp BP Pulse Ox O2 Del Method 100.3 F H 80 18 114/54 L 93 Room Air 10/21/22 07:09 10/21/22 07:47 10/21/22 07:09 10/21/22 07:09 10/21/22 07:09 10/21/22 07:09 Oxygen Delivery Method Room Air Weight: 254 lb 13.67 oz Body Mass Index (BMI) 34.5 Intake & Output: Intake and Output for Last 24 Hours 10/19/22 10/20/22 10/21/22 23:59 23:59 23:59 Intake Total 1462.5 / 1862.5 4670 / 4670 420 / 420 Balance 1462.5 / 1862.5 4670 / 4670 420 / 420 Lab / Micro Data 10/21/22 07:40 10/21/22 07:40 Labs: Laboratory Results - last 24 hr 10/20/22 13:15: POC Glucose 119 H 10/20/22 16:45: POC Glucose 158 H 10/21/22 07:40: WBC 9.7, RBC 4.92, Hgb 14.2, Hct 43.9, MCV 89.2, MCH 28.9, MCHC 32.3, RDW Std Deviation 46.1 H, RDW Coeff of Sumit 14.2, Plt Count 126 L, MPV 11.1, Immature Gran % (Auto) 0.600, Neut % (Auto) 86.2 H, Lymph % (Auto) 3.1 L, [place] % (Auto) 9.9, Eos % (Auto) 0.0, Baso % (Auto) 0.2, Absolute Neuts (auto) 8. 4 H, Absolute Lymphs (auto) 0.30 L, Nucleated RBC % 0 Radiography Diagnostic Testing: Radiology Impression Cholangiogram 10/20/22 15:22 IMPRESSION: Fluoroscopic guided intraoperative cholangiogram Electronically Signed: Neel Saha MD at 23:00 EDT , Physical Exam Const oriented x3 and no apparent distress Resp normal respiratory effort GI GI Narrative: Operative dressings intact over port sites with only mild serosanguineous strikethrough. Nondistended and appropriately tender to palpation just about incision sites. Assessment & Plan Assessment/Plan (1) Acute calculous cholecystitis: PLAN: Patient is postoperative day 1 from laparoscopic cholecystectomy with intraoperative cholangiogram. Unfortunately cholangiogram was unsuccessful due to a distally occluded cystic duct. This morning patient's LFTs are mildly elevated, but this is likely owing to the use of argon beam coagulation during the procedure on the account of bleeding in the gallbladder fossa. Patient feels well today and confirms that he feels better than preoperatively. He tolerated his clear liquids without issue so I would like to advance him to a regular diet today. If he does fine with this advancement I think he is fit for discharge to home later today. We will plan to reevaluate, however, this afternoon. Charges/Coding Visit Charges Inpatient E&M: 33475 Subs Hosp L2
[2022-10-21 09:01] LABS: AST(SGOT) 84 U/L (15-37); Alanine Aminotransfer ALT/SGPT 67 U/L (16-61); Albumin, Serum 2.9 g/dL (3.2-5.0); Alkaline Phosphatase 37 U/L (45-117); Anion Gap 8 (5-15); BUN 17 mg/dL (7-18); BUN/Creat Ratio 16.2 RATIO (10-20); Calcium,Total 8.4 mg/dL (8.5-10.1); Chloride 100 mmol/L (98-107); Creatinine, Serum 1.05 mg/dL (0.70-1.30); EST Glomerular Filtration Rate 76 mL/min (>60); Est Glom Filt Rate - Afr Amer 92 mL/min (>60); Estimated Creatinine Clearance 79.04 ml/min; Globulin 2.8 g/dL (2.2-4.2); Glucose 151 mg/dL (74-106); Protein, Total 5.7 g/dL (6.4-8.2); Sodium Level 134 mmol/L (136-145)
[2022-10-21] MEDS: Metoprolol(XL)Succ 50 MG Tablet PO (09:41)
[2022-10-21] MEDS: Ramipril 5 MG Capsule PO (09:44)
[2022-10-21] MEDS: metFORMIN HCl 1,000 MG Tablet 1000 MG PO ×2 (09:44→16:57)
[2022-10-21] MEDS: Glimepiride 4 MG Tablet PO (09:44)
[2022-10-21] MEDS: Empagliflozin 25 MG Tablet PO (09:44)
[2022-10-21] MEDS: hydroCHLOROthiazide 25 MG Tablet PO (09:44)
[2022-10-21] MEDS: LINAGLIPTIN 5 MG TABLET PO (09:45)
[2022-10-21] MEDS: Montelukast 10 MG Tablet PO (09:45)
[2022-10-21] MEDS: Ciprofloxacin 400 MG/200 ML BAG 200 MG IV (09:47)
[2022-10-21 10:12] LABS: Bedside Glucose 202 mg/dL (74-106)
--- NOTE | 2022-10-21 10:55 | DCINST_ITS ---
Discharge Instructions Diet Discharge Diet: No restrictions Activity Discharge Activity: May Not Drive (No driving while using narcotic pain medication) and May Shower (Postoperative day 1) May shower in (days): 1 Ice area for (Minutes): 20 Lifting Restrictions: No lifting greater than 15 pounds for 2 weeks after surgery Dressing / Incision Call your doctor if your incision/area has: Continuous Slow Oozing, Increased Pain/ Swelling, Increased Redness, Foul Smelling Discharge and Swelling at the incision site Call your doctor if you observe: Fever of 101 or Higher Remove Dressing in: 1 day (Please leave Steri-Strips intact until they fall off spontaneously or are taken off at your follow-up visit) Cleanse incision/area with: Soap & Water Follow Up Care Please Follow Up With: Trevin Gomez MD When: 7-10days postop (call the office for an appointment) Test Results: Test results from this visit will be discussed in further detail at your follow- up appointment, if applicable. Discharge Plan Admission Admit Date/Time: 10/19/22 11:02 Primary Reason for Your Visit: Cholecystitis Attending Provider: Trevin Gomez Primary Care Provider: Emi Dubose Discharge Orders/Prescriptions Prescriptions: New oxycodone 5 mg Tablet 5 mg PO Q4H PRN PRN (Reason: Pain Score 4-10) 5 Days Qty: 14 0RF Continued montelukast 10 mg tablet 10 mg PO DAILY 90 Days Qty: 90 Patient Comments: TAKE 1 TABLET BY MOUTH AT BEDTIME escitalopram oxalate 10 mg tablet 10 mg PO DAILY 90 Days Qty: 90 Patient Comments: TAKE 1 TABLET BY MOUTH DAILY sitagliptin phos-metformin 50-1,000 mg tablet 1 tab PO BID glimepiride 4 mg tablet 4 mg PO QDAY Rx Instructions: Stopping glimepiride and starting Ozempic on Sunday07/30/2022 Jardiance 25 mg tablet 25 mg PO DAILY aspirin [Adult Aspirin Regimen] 81 mg tablet,delayed release (DR/EC) 162 mg PO DAILY Rx Instructions: 2 tabs qam pravastatin 20 mg tablet 20 mg PO QDAY Qty: 90 3RF meclizine 25 mg tablet 25 mg PO DAILY cholecalciferol (vitamin D3) [D3 DOTS] 50 mcg (2,000 unit) tablet 50 mcg PO DAILY hydrochlorothiazide 25 mg tablet 25 mg PO QDAY Qty: 90 3RF ramipril 5 mg capsule 5 mg PO BID Qty: 180 3RF metoprolol succinate 50 mg tablet extended release 24 hr 50 mg PO QDAY Qty: 90 3RF Referrals / Follow Up: Emi Dubose DO [Primary Care Provider] - Disposition Disposition (needs filled in before D/C Order can be placed): Home, Self Care
--- NOTE | 2022-10-21 11:03 | PCM.DC.SUM ---
Providers Date of Admission: 10/19/22 Primary Care Physician: Emi Dubose DO Reason For Visit: BILIARY COLIC Diagnosis Discharge Diagnosis (1) Acute calculous cholecystitis: Status: Acute Code(s): K80.00 - Calculus of gallbladder with acute cholecystitis without obstruction Plan: Patient is postoperative day 1 from laparoscopic cholecystectomy with intraoperative cholangiogram. Unfortunately cholangiogram was unsuccessful due to a distally occluded cystic duct. This morning patient's LFTs are mildly elevated, but this is likely owing to the use of argon beam coagulation during the procedure on the account of bleeding in the gallbladder fossa. Patient feels well today and confirms that he feels better than preoperatively. He tolerated his clear liquids without issue so I would like to advance him to a regular diet today. If he does fine with this advancement I think he is fit for discharge to home later today. We will plan to reevaluate, however, this afternoon. Medications at Discharge Home Medications sitagliptin phosphate 50 mg-metformin 1,000 mg tablet 1 tab PO BID 07/31/17 escitalopram oxalate 10 mg tablet 10 mg PO DAILY 90 days ##90 08/03/17 montelukast 10 mg tablet 10 mg PO DAILY 90 days ##90 08/03/17 empagliflozin 25 mg tablet (Jardiance) 25 mg PO DAILY 05/07/18 aspirin 81 mg tablet,delayed release (Adult Aspirin Regimen) 162 mg PO DAILY 05/12/21 hydrochlorothiazide 25 mg tablet 25 mg PO QDAY #90 tabs 06/16/22 metoprolol succinate 50 mg tablet,extended release 24 hr 50 mg PO QDAY #90 tabs 06/16/22 ramipril 5 mg capsule 5 mg PO BID #180 caps 06/16/22 glimepiride 4 mg tablet 4 mg PO QDAY 07/28/22 pravastatin 20 mg tablet 20 mg PO QDAY #90 tabs 07/28/22 cholecalciferol (vitamin D3) 50 mcg (2,000 unit) tablet (D3 DOTS) 50 mcg PO DAILY 10/19/22 meclizine 25 mg tablet 25 mg PO DAILY 10/19/22 oxycodone 5 mg tablet 5 mg PO Q4H PRN PRN Pain Score 4-10 5 days #14 tabs 10/21/22 Hospital Course Operations cholecystecomy (10/20/2022) Procedures None Summary of Care Provided Hospital Course: Patient is a 61-year-old male who presented to [facility] ER on 10/19/2022 due to complaints of progressive and persistent right upper quadrant discomfort. His ER work-up was consistent with a diagnosis of calculus cholecystitis. He was also admitted to the general surgery service and underwent laparoscopic cholecystectomy with attempted intraoperative cholangiogram with Dr. Gomez on 10/20/2022. Intraoperatively the gallbladder was noted to exhibit signs of significant inflammation and the patient was thus returned to the medical surgical floor postoperatively to be monitored for any signs of a postoperative ileus. Postoperative day 0 he was advanced to a clear liquid diet which he tolerated and thus the morning of postoperative day 1 his diet was returned to a regular (low carbohydrate on account of his diabetes) diet. He tolerated this transition uneventfully and labs the morning of postoperative day 1 showed his hemoglobin to be only slightly down trended from his preop values. LFTs were mildly elevated, but this was felt to be consistent with use of argon beam coagulation intraoperatively. With these positive clinical changes patient was discharged home in improved condition on 10/21/2022 with instructions to follow-up in the general surgery office for a postoperative visit. Physical Exam Const alert, oriented x3 and no apparent distress Resp normal respiratory effort GI GI Narrative: Operative dressings with persistent, mild amount of serosanguineous strikethrough. Abdomen is minimally distended and appropriately tender to palpation just about port sites superficially Weight / BMI Weight Weight: 254 lb 13.67 oz Body Mass Index (BMI) 34.5 ABG / Lab / Microbiology Data 10/21/22 07:40 10/21/22 07:40 Laboratory: Laboratory Results - last 24 hr 10/20/22 13:15: POC Glucose 119 H 10/20/22 16:45: POC Glucose 158 H 10/21/22 07:40: WBC 9.7, RBC 4.92, Hgb 14.2, Hct 43.9, MCV 89.2, MCH 28.9, MCHC 32.3, RDW Std Deviation 46.1 H, RDW Coeff of Sumit 14.2, Plt Count 126 L, MPV 11.1, Immature Gran % (Auto) 0.600, Neut % (Auto) 86.2 H, Lymph % (Auto) 3.1 L, [place] % (Auto) 9.9, Eos % (Auto) 0.0, Baso % (Auto) 0.2, Absolute Neuts (auto) 8.4 H, Absolute Lymphs (auto) 0.30 L, Nucleated RBC % 0, Sodium 134 L, Potassium 4.0, Chloride 100, Carbon Dioxide 26.0, Anion Gap 8, BUN 17, Creatinine 1.05, Estim Creat Clear Calc 79.04, Est GFR (MDRD) Af Amer 92, Est GFR (MDRD) Non-Af 76, BUN/Creatinine Ratio 16.2, Glucose 151 H, Calcium 8.4 L, Total Bilirubin 0.70, AST 84 H, ALT 67 H, Alkaline Phosphatase 37 L, Total Protein 5.7 L, Albumin 2.9 L, Globulin 2.8, Albumin/Globulin Ratio 1.0 10/21/22 09:49: POC Glucose 202 H Radiography Diagnostic Testing: Radiology Impression Cholangiogram 10/20/22 15:22 IMPRESSION: Fluoroscopic guided intraoperative cholangiogram Electronically Signed: Neel Saha MD at 23:00 EDT Reading Location ID and State: [address] [place] [address] , Service support , D/C Instructions Discharge Diet: No restrictions May shower in (days): 1 Ice area for (Minutes): 20 Call your doctor if your incision/area has: Continuous Slow Oozing, Increased Pain/ Swelling, Increased Redness, Foul Smelling Discharge and Swelling at the incision site Call your doctor if you observe: Fever of 101 or Higher Cleanse incision/area with: Soap & Water Please Follow Up With: Trevin Gomez MD When: 7-10days postop Meaningful Use Info Meaningful Use Diagnoses (Choose all that apply): None applicable Discharge Plan Admission Admit Date/Time: 10/19/22 11:02 Primary Reason for Your Visit: Cholecystitis Attending Provider: Trevin Gomez Primary Care Provider: Emi Dubose Discharge Orders/Prescriptions Prescriptions: New oxycodone 5 mg Tablet 5 mg PO Q4H PRN PRN (Reason: Pain Score 4-10) 5 Days Qty: 14 0RF Continued montelukast 10 mg tablet 10 mg PO DAILY 90 Days Qty: 90 Patient Comments: TAKE 1 TABLET BY MOUTH AT BEDTIME escitalopram oxalate 10 mg tablet 10 mg PO DAILY 90 Days Qty: 90 Patient Comments: TAKE 1 TABLET BY MOUTH DAILY sitagliptin phos-metformin 50-1,000 mg tablet 1 tab PO BID glimepiride 4 mg tablet 4 mg PO QDAY Rx Instructions: Stopping glimepiride and starting Ozempic on Sunday07/30/2022 Jardiance 25 mg tablet 25 mg PO DAILY aspirin [Adult Aspirin Regimen] 81 mg tablet,delayed release (DR/EC) 162 mg PO DAILY Rx Instructions: 2 tabs qam pravastatin 20 mg tablet 20 mg PO QDAY Qty: 90 3RF meclizine 25 mg tablet 25 mg PO DAILY cholecalciferol (vitamin D3) [D3 DOTS] 50 mcg (2,000 unit) tablet 50 mcg PO DAILY hydrochlorothiazide 25 mg tablet 25 mg PO QDAY Qty: 90 3RF ramipril 5 mg capsule 5 mg PO BID Qty: 180 3RF metoprolol succinate 50 mg tablet extended release 24 hr 50 mg PO QDAY Qty: 90 3RF Referrals / Follow Up: Emi Dubose DO [Primary Care Provider] - Disposition Disposition (needs filled in before D/C Order can be placed): Home, Self Care Charges/Coding Visit Charges Inpatient E&M: 71940 Disch Hosp
[2022-10-21] MEDS: Lactated Ringers 1,000 ML 25 ML IV (14:11)
== END 2022-10-21 17:36 | disposition home or self-care (01) ==
LOC: ED 09:10 → MS3 10:34
PROVIDERS: Anesthesiology; Physician Assistant; Admitting Provider Surgery; Emergency Provider Emergency Medicine; PCP Family Medicine; Visit Provider Surgery
PROC: (CPT 47610; principal; 2022-10-20 13:50)
DX: K80.13 Calculus of gallbladder with acute and chronic cholecystitis with obstruction (principal); E11.9 Type 2 diabetes mellitus without complications; Z79.84 Long term (current) use of oral hypoglycemic drugs; I10 Essential (primary) hypertension; I25.10 Atherosclerotic heart disease of native coronary artery without angina pectoris; E78.5 Hyperlipidemia, unspecified; Z79.82 Long term (current) use of aspirin; Z79.899 Other long term (current) drug therapy; Z95.1 Presence of aortocoronary bypass graft; E66.9 Obesity, unspecified; Z68.34 Body mass index [BMI] 34.0-34.9, adult
CPT/HCPCS: 47563; 00790; 36415; 71045; 74300; 76000; 76705; 80053; 82962; 83036; 83690; 85025; 88304; 93005; 94668; 96361; 96365; 96366; 96367; 96375; 96376; 99221; 99252; 99283; J7030; J7120; A4216; C1760; G0378; G0463; J0744; J2405

== ENCOUNTER 2023-01-11 12:58 | Inpatient (IN) | payer BC, SELFPAY ==
[2023-01-11] VITALS (7 sets, daily range): BP systolic 120–137; BP diastolic 78–88; PULSE 65–69; RESP 14–18; TEMP 36.3–36.4; O2SAT 96–98; BMI 34.8; BMI 33.4
--- NOTE | 2023-01-11 13:31 | EKG12_ITS ---
Test Reason : CP Blood Pressure : / mmHG Vent. Rate : 068 BPM Atrial Rate : 068 BPM P-R Int : 176 ms QRS Dur : 104 ms QT Int : 400 ms P-R-T Axes : -05 058 110 degrees QTc Int : 425 ms Normal sinus rhythm Incomplete right bundle branch block Anteroseptal infarct (cited on or before 19-OCT-2022) Abnormal ECG Confirmed by EDWAR DOBBINS, NONA ([id number]), science editor MIRLANDE AMIN ([id number]) on 01/15/2023 8:09:02 AM Referred By: BANDAR Confirmed By:ADEOLA VANN MD
--- NOTE | 2023-01-11 13:32 | EDS_ITS ---
HPI History of Present Illness Chief Complaint: Chest Pain Informant: patient Onset/Context/Timing Onset: Yesterday Narrative Narrative: Patient presents secondary to heart racing and chest pain. He reportedly has a history of episodes where his heart will race and he will get pain across his chest. He states usually this lasts 10 minutes or so and then goes away. During his stress test last year he had an episode of this. Per the notes he had SVT that spontaneously resolved. Patient states last evening he had another episode that lasted approximately an hour before it went away. Today he was moving a table and states that he was overheated and warm. He states again his heart started racing and he had chest pressure that lasted about an hour. At this time patient denies any chest pain or shortness of breath. He does have a history of coronary artery disease and had a bypass surgery in 2009. He did take 2 baby aspirin this morning as well as 2 full-size aspirin just prior to arrival. [facility] Medical History Acute calculous cholecystitis Atherosclerotic heart disease of [place] coronary artery without angina pectoris Essential (primary) hypertension HLD (hyperlipidemia) Incomplete right bundle branch block Obesity Type 2 diabetes mellitus Home Medications sitagliptin phosphate 50 mg-metformin 1,000 mg tablet 1 tab PO BID 07/31/17 [History Last Taken Unknown] escitalopram oxalate 10 mg tablet 10 mg PO DAILY 90 days ##90 08/03/17 [History Last Taken Unknown] montelukast 10 mg tablet 10 mg PO DAILY 90 days ##90 08/03/17 [History Last Taken Unknown] empagliflozin 25 mg tablet (Jardiance) 25 mg PO DAILY 05/07/18 [History Last Taken Unknown] aspirin 81 mg tablet,delayed release (Adult Aspirin Regimen) 162 mg PO DAILY 05/12/21 [History Last Taken Unknown] hydrochlorothiazide 25 mg tablet 25 mg PO QDAY #90 tabs 06/16/22 [Rx Last Taken Unknown] metoprolol succinate 50 mg tablet,extended release 24 hr 50 mg PO QDAY #90 tabs 06/16/22 [Rx Last Taken Unknown] ramipril 5 mg capsule 5 mg PO BID #180 caps 06/16/22 [Rx Last Taken Unknown] glimepiride 4 mg tablet 4 mg PO QDAY 07/28/22 [History Last Taken Unknown] pravastatin 20 mg tablet 20 mg PO QDAY #90 tabs 07/28/22 [Rx Last Taken Unknown] cholecalciferol (vitamin D3) 50 mcg (2,000 unit) tablet (D3 DOTS) 50 mcg PO DAILY 10/19/22 [History Last Taken Unknown] meclizine 25 mg tablet 25 mg PO DAILY 10/19/22 [History Last Taken Unknown] cholestyramine-aspartame 4 gram oral powder for susp in a packet 1 ea PO DAILY 01/11/23 [History Last Taken Unknown] Allergy/AdvReac Type Severity Reaction Status Date / Time atorvastatin [From Lipitor] AdvReac Severe Myalgias Verified 01/11/23 12:59 Penicillins AdvReac Severe Hives Verified 01/11/23 12:59 Family History Father Heart disease Myocardial infarction Mother Breast cancer Colon cancer Brother Hypertension Brother Diabetes Surgical History H/O coronary artery bypass surgery (10/12/09) History of laparoscopic cholecystectomy History of open reduction and internal fixation (ORIF) procedure (2020) Social History Smoking Status: Never smoker alcohol intake: never caffeine: Yes Type: tea Number of servings: 1 what type of physical activity do you participate in: none ROS ROS ED Constitutional Constitutional ED: Denies chills or fever(s) Eyes Eyes: Denies change in vision or discharge from eye(s) ENT ENT ED: Denies discharge from eye(s), rhinorrhea or sore throat Cardiovascular Cardiovascular: Reports chest pain and palpitations Respiratory/Chest Respiratory/Chest: Denies cough or dyspnea Gastrointestinal Gastrointestinal: Denies abdominal pain, nausea or vomiting Genitourinary Genitourinary ED: Denies dysuria Musculoskeletal Musculoskeletal: Denies back pain or extremity pain Integumentary Denies Abrasions or rash Neurologic Neurologic: Denies headache(s) or weakness Psychiatric Psychiatric: Denies anxiety or depression Allergic/Immunologic Allergic/Immunologic ED: Denies lip swelling or urticaria EXAM Physical Exam Const Vital Signs: 01/11/23 13:00 11/09/23 13:25 Temperature 97.3 F L Temperature Source Temporal Pulse Rate 68 Respiratory Rate 14 Respiratory Effort Normal Non-Labored Blood Pressure 137/84 H Blood Pressure Mean 101 Pulse Ox 98 Oxygen Delivery Method Room Air Positive well nourished and well developed General Appearance ED: well developed HEENT Reports moist mucous membranes Eyes EOMs intact bilaterally Resp normal respiratory effort and clear to auscultation bilaterally Cardio regular rate and regular rhythm GI soft to palpation and non-tender Extremity normal to inspection Neuro oriented x3, CN's II-XII intact bilaterally and no sensory deficits noted Motor Exam: strength 5/5 throughout Psych mental status grossly normal Skin no rashes or lesions noted MDM MDM MDM Narrative Medical decision making narrative: Patient placed on environmental monitoring technician. EKG obtained to evaluate for cardiac arrhythmia/ischemia. Chest x-ray obtained to evaluate for acute lung pathology, cardiac size, or mediastinal abnormality. Labwork obtained to evaluate for leukocytosis, anemia, and electrolyte derangement. Discharge Plan Triage Chief Complaint: Chest Pain ED Provider: Gilda Diaz Dx/Rx/DC Orders Prescriptions: No Action montelukast 10 mg tablet 10 mg PO DAILY 90 Days Qty: 90 Patient Comments: TAKE 1 TABLET BY MOUTH AT BEDTIME escitalopram oxalate 10 mg tablet 10 mg PO DAILY 90 Days Qty: 90 Patient Comments: TAKE 1 TABLET BY MOUTH DAILY sitagliptin phos-metformin 50-1,000 mg tablet 1 tab PO BID glimepiride 4 mg tablet 4 mg PO QDAY Rx Instructions: Stopping glimepiride and starting Ozempic on Sunday07/30/2022 Jardiance 25 mg tablet 25 mg PO DAILY aspirin [Adult Aspirin Regimen] 81 mg tablet,delayed release (DR/EC) 162 mg PO DAILY Rx Instructions: 2 tabs qam pravastatin 20 mg tablet 20 mg PO QDAY Qty: 90 3RF meclizine 25 mg tablet 25 mg PO DAILY cholecalciferol (vitamin D3) [D3 DOTS] 50 mcg (2,000 unit) tablet 50 mcg PO DAILY oxycodone 5 mg Tablet 5 mg PO Q4H PRN PRN (Reason: Pain Score 4-10) 5 Days Qty: 14 0RF hydrochlorothiazide 25 mg tablet 25 mg PO QDAY Qty: 90 3RF ramipril 5 mg capsule 5 mg PO BID Qty: 180 3RF metoprolol succinate 50 mg tablet extended release 24 hr 50 mg PO QDAY Qty: 90 3RF cholestyramine-aspartame 4 gram powder in packet See Rx Instructions .ROUTE .COMPLEX Qty: 60 0RF Dose Instruction: 4 G ORALLY TWICE A DAY ADMINISTER W/MEAL AVOID OTHER MEDS WITHIN 1HOUR BEFORE OR 4-6HR AFTER DOSE Rx Instructions: 4 G ORALLY TWICE A DAY ADMINISTER W/MEAL AVOID OTHER MEDS WITHIN 1HOUR BEFORE OR 4-6HR AFTER DOSE Primary Care Provider: Emi Dubose Referrals: Emi Dubose, DO [Primary Care Provider] -
--- NOTE | 2023-01-11 13:45 | RAD_ITS ---
STUDY: X-RAY CHEST REASON FOR EXAM: Male, 62 years old. Chest pain TECHNIQUE: Single AP portable view of the chest. COMPARISON: Comparison is made with prior study dated October 20, 2022. FINDINGS: EKG electrodes are seen. The lungs are clear and expanded. There is no demonstrated pleural abnormality. Sternal cerclage wires and vascular clips are present from a prior sternotomy and coronary artery bypass graft procedure (CABG). Mild cardiomegaly. Normal mediastinum and sharif. Normal visualized pulmonary arteries. There is atherosclerotic tortuosity of the aortic arch and descending thoracic aorta. There are degenerative changes of the visualized thoracic spine. Normal visualized ribs, clavicles, and shoulders. There is no demonstrated abnormality of the visualized soft tissue structures of the upper abdomen. RAD/Chest 1 View (Portable) IMPRESSION: Cardiomegaly. The lungs are clear. Electronically Signed: Nile Batista MD at 14:00 EST ,
[2023-01-11 13:47] LABS: Absolute Lymphocyte Count 1.61 X10^3/uL (0.83-4.51); Absolute Neutrophil Count 11.4 X10^3/uL (2.0-7.7); Basophil# 0.05 X10^3/uL; Basophil% 0.3 % (0-1); Eosinophil# 0.26 X10^3/uL; Eosinophils% 1.8 % (0-5); Hematocrit 47.2 % (40-54); Hemoglobin 15.5 g/dL (13.0-16.5); Lymphocyte # 1.61 X10^3/ul (0.83-4.51); Lymphocyte % 11.1 % (19-41); Mean Corp Hgb Conc 32.8 g/dL (32-36); Mean Corpuscular Hgb 28.5 pg (27.0-32.0); Mean Corpuscular Volume 86.8 fL (80-94); Mean Platelet Vol. 11.9 fl (6.2-12.0); Monocyte# 1.05 X10^3/uL; Monocyte% 7.3 % (0-10); NRBC Flagged by Analyzer 0 % (0-5); Neutrophil # 11.39 X10^3/uL (2.7-7.7); Neutrophil % 78.9 % (47-70); Platelet Count 228 K/mm3 (150-450); RBC Distribution Width CV 14.7 % (11.6-14.6); RBC Distribution Width SD 46.4 fl (35.1-43.9); Red Blood Count 5.44 M/mm3 (4.6-6.2); White Blood Count 14.4 K/mm3 (4.4-11.0)
[2023-01-11] MEDS: 0.9% Normal Saline (1000mL) 1,000 ML 150 ML IV (13:55)
[2023-01-11 14:12] LABS: Anion Gap 7 (5-15); BUN 28 mg/dL (7-18); BUN/Creat Ratio 21.2 RATIO (10-20); Calcium,Total 9.6 mg/dL (8.5-10.1); Chloride 105 mmol/L (98-107); Creatinine, Serum 1.32 mg/dL (0.70-1.30); EST Glomerular Filtration Rate 58 mL/min (>60); Est Glom Filt Rate - Afr Amer 70 mL/min (>60); Estimated Creatinine Clearance 62.05 ml/min; Glucose 138 mg/dL (74-106); Magnesium 1.9 mg/dL (1.6-2.6); Potassium 4.1 mmol/L (3.5-5.1); Sodium Level 136 mmol/L (136-145); Troponin-I HS (w/2H Reflex) 2594 pg/mL (3.0-78.0)
--- NOTE | 2023-01-11 14:24 | PCM.HP.STD ---
HPI - General General Date of Admission: 01/11/23 HPI Narrative PRAVEENA BENJAMIN, is a 62 M who presents to the hospital with chest pain. Started last night before bed and it lasted for about 30 minutes at which point he took 2 aspirin and it seemed to go away. This morning when he woke up he developed chest pain again and he took another 2 aspirin and it resolved after about an hour. He presented to the ED where he was found to have a troponin of over 2500 but currently denies any chest pain. He noticed that during his episodes of chest pain that he felt like his heart was racing, current heart rate in the ER today is 68 bpm. He does have a history of coronary artery disease and had a CABG in 2009 but denies any stents. Of note he does have a leukocytosis to 14.4, he denies any fevers or chills and no sick contacts. Chest x-ray was unremarkable and he is denying any urinary symptoms, will obtain respiratory panel. [facility] Medical History (Updated 01/11/23 @ 17:03 by Haylie Benjamin) Acute calculous cholecystitis Atherosclerotic heart disease of [place] coronary artery without angina pectoris Chest pain Coronary artery disease Diabetes Essential (primary) hypertension HLD (hyperlipidemia) Hypertension Incomplete right bundle branch block Kidney stones Myocardial infarct Non-smoker Obesity Type 2 diabetes mellitus Home Medications sitagliptin phosphate 50 mg-metformin 1,000 mg tablet 1 tab PO BID 07/31/17 [History Last Taken Unknown] escitalopram oxalate 10 mg tablet 10 mg PO DAILY 90 days ##90 08/03/17 [History Last Taken Unknown] montelukast 10 mg tablet 10 mg PO DAILY 90 days ##90 08/03/17 [History Last Taken Unknown] empagliflozin 25 mg tablet (Jardiance) 25 mg PO DAILY 05/07/18 [History Last Taken Unknown] aspirin 81 mg tablet,delayed release (Adult Aspirin Regimen) 162 mg PO DAILY 05/12/21 [History Last Taken Unknown] hydrochlorothiazide 25 mg tablet 25 mg PO QDAY #90 tabs 06/16/22 [Rx Last Taken Unknown] metoprolol succinate 50 mg tablet,extended release 24 hr 50 mg PO QDAY #90 tabs 06/16/22 [Rx Last Taken Unknown] ramipril 5 mg capsule 5 mg PO BID #180 caps 06/16/22 [Rx Last Taken Unknown] glimepiride 4 mg tablet 2 mg PO BID 07/28/22 [History Last Taken Unknown] pravastatin 20 mg tablet 20 mg PO QDAY #90 tabs 07/28/22 [Rx Last Taken Unknown] cholecalciferol (vitamin D3) 50 mcg (2,000 unit) tablet (D3 DOTS) 50 mcg PO DAILY 10/19/22 [History Last Taken Unknown] meclizine 25 mg tablet 25 mg PO DAILY 10/19/22 [History Last Taken Unknown] cholestyramine-aspartame 4 gram oral powder for susp in a packet 1 ea PO DAILY 01/11/23 [History Last Taken Unknown] Allergy/AdvReac Type Severity Reaction Status Date / Time atorvastatin [From Lipitor] AdvReac Severe Myalgias Verified 01/11/23 12:59 Penicillins AdvReac Severe Hives Verified 01/11/23 12:59 Family History Father Heart disease Myocardial infarction Mother Breast cancer Colon cancer Brother Hypertension Brother Diabetes Surgical History (Updated 01/11/23 @ 17:03 by Haylie Benjamin) H/O coronary artery bypass surgery (10/12/09) History of cholecystectomy History of coronary artery stent placement History of laparoscopic cholecystectomy History of open reduction and internal fixation (ORIF) procedure (2020) Social History Smoking Status: Never smoker alcohol intake: never caffeine: Yes Type: tea Number of servings: 1 what type of physical activity do you participate in: none ROS Constitutional Constitutional: Denies chills, fatigue, fever(s) or malaise Eyes Eyes: Denies blurry vision ENT HEENT: Denies headache(s) or nasal discharge Cardiovascular Cardiovascular: Reports chest pain and palpitations; Denies dyspnea on exertion or syncope Respiratory/Chest Respiratory/Chest: Denies cough, shortness of breath at rest or shortness of breath with exertion Gastrointestinal Gastrointestinal: Denies constipation, diarrhea, nausea or vomiting Genitourinary Genitourinary: Denies dysuria Neurologic Neurologic: Denies focal weakness, numbness or tremor(s) Psychiatric Psychiatric: Denies anxiety or depression Vital Signs Vital Signs Vital Signs: 01/11/23 13:00 01/11/23 13:25 01/11/23 13:31 Temperature 97.3 F L Temperature Source Temporal Pulse Rate 68 Respiratory Rate 14 Respiratory Effort Normal Non-Labored Blood Pressure 137/84 H Blood Pressure Mean 101 Pulse Ox 98 Oxygen Delivery Method Room Air Room Air Weight Weight: 256 lb 9.889 oz Body Mass Index (BMI) 34.8 Physical Exam Narrative General: Alert, Oriented x3, Cooperative, No apparent distress HEENT: Atraumatic, PERRLA, EOMI, Normocephalic Oral: Moist Mucosa Neck: Supple, No JVD Lungs: Diminished, Normal air movement, No rhonchi, No wheeze, No rales Cardiovascular: Regular rate, Regular Rhythm, Normal S1, Normal S2, No murmurs Abdomen: Soft, Non Tender, Non-Distended, No Hepato-splenomegaly Extremities: No edema, Capillary Refill Less than 3 Seconds Skin: No rashes, No breakdown Musculoskeletal: No Tenderness to Palpation of Joints or Extremities Neurological: Cranial nerves II-XII grossly intact, Motor Exam 5/5 strength throughout, Sensory exam intact to light touch and pain Psych/Mental Status: Normal Affect, Appropriate Results Lab / Micro Data 01/11/23 13:20 01/11/23 13:20 Labs: Laboratory Results - last 24 hr 01/11/23 13:20: WBC 14.4 H, RBC 5.44, Hgb 15.5, Hct 47.2, MCV 86.8, MCH 28.5, MCHC 32.8, RDW Std Deviation 46.4 H, RDW Coeff of Sumit 14.7 H, Plt Count 228, MPV 11.9, Immature Gran % (Auto) 0.600, Neut % (Auto) 78.9 H, Lymph % (Auto) 11.1 L, [place] % (Auto) 7.3, Eos % (Auto) 1.8, Baso % (Auto) 0.3, Absolute Neuts (auto) 11.4 H, Absolute Lymphs (auto) 1.61, Nucleated RBC % 0, Sodium 136, Potassium 4.1, Chloride 105, Carbon Dioxide 24.0, Anion Gap 7, BUN 28 H, Creatinine 1.32 H, Estim Creat Clear Calc 62.05, Est GFR (MDRD) Af Amer 70, Est GFR (MDRD) Non-Af 58 L, BUN/Creatinine Ratio 21.2 H, Glucose 138 H, Calcium 9.6, Magnesium 1.9, Troponin I High Sens 2594 H* Radiology Impression Chest X-Ray 01/11/23 13:45 IMPRESSION: Cardiomegaly. The lungs are clear. Electronically Signed: Nile Batista MD at 14:00 EST , Assessment & Plan Assessment/Plan (1) Non-STEMI (non-ST elevated myocardial infarction): PLAN: Plan 1. Non-STEMI/CAD status post CABG/HTN/HLD ? Presenting today with chest pain and elevated troponins to 2500 ? We will serial troponins ? Continue with heparin drip ? We will consult cardiology for heart cath in the morning ? Can resume his home blood pressure medications and his cholesterol medications 2. DM 2 ? We will hold his home glimepiride as well as his Sitagliptin/metformin combo pill, can continue with his Jardiance ? Accu-Cheks ACHS ? Sliding scale insulin ? We will monitor and make adjustments as necessary DVT: Heparin drip Charges/Coding Visit Charges Inpatient E&M: 02486 Init Hosp L2
[2023-01-11 14:46] LABS: Prothrombin Time (Protime)PT. 13.2 SECONDS (11.7-14.9)
[2023-01-11 14:47] LABS: Partial Thromboplast Time 28.7 Seconds (24.1-36.2)
[2023-01-11] MEDS: HEPARIN/D5w 25,000 UNITS 25,000 UNITS/250 ML IV.SOLN. 10 UNITS CONT INF (15:12)
[2023-01-11] MEDS: Heparin Injection (Vial) 5,000 UNIT/ML VIAL 4000 UNIT IV (15:13)
[2023-01-11 15:34] LABS: Reflex Troponin-HS? (from REC) Y
[2023-01-11 16:23] LABS: Troponin-I HS 5588 pg/mL (3.0-78.0)
[2023-01-11 18:13] LABS: Bedside Glucose 96 mg/dL (74-106)
[2023-01-11 20:34] LABS: Troponin-I HS 9292 pg/mL (3.0-78.0)
[2023-01-11] MEDS: Pravastatin 20 MG Tablet PO (20:43)
[2023-01-11] MEDS: Ramipril 5 MG Capsule PO (20:44)
[2023-01-11] MEDS: Insulin Lispro 100 UNIT/ML INSULN.PEN SC (20:44)
[2023-01-11 21:39] LABS: Partial Thromboplast Time 30.4 Seconds (24.1-36.2)
[2023-01-11] MEDS: Acetaminophen 325 MG Tablet 650 MG PO (22:23)
[2023-01-11 22:36] LABS: Bedside Glucose 171 mg/dL (74-106)
[2023-01-11] MEDS: Heparin Injection (Vial) 5,000 UNIT/ML VIAL IV (23:28)
[2023-01-12] VITALS (15 sets, daily range): BP systolic 102–155; BP diastolic 57–82; PULSE 61–74; RESP 16–18; TEMP 36.1–37.2; O2SAT 95–98
[2023-01-12 06:03] LABS: Bedside Glucose 150 mg/dL (74-106)
[2023-01-12 06:06] LABS: Absolute Lymphocyte Count 1.56 X10^3/uL (0.83-4.51); Absolute Neutrophil Count 6.7 X10^3/uL (2.0-7.7); Basophil# 0.03 X10^3/uL; Basophil% 0.3 % (0-1); Eosinophil# 0.23 X10^3/uL; Eosinophils% 2.4 % (0-5); Hematocrit 46.3 % (40-54); Hemoglobin 14.9 g/dL (13.0-16.5); Lymphocyte # 1.56 X10^3/ul (0.83-4.51); Lymphocyte % 16.3 % (19-41); Mean Corp Hgb Conc 32.2 g/dL (32-36); Mean Corpuscular Hgb 28.3 pg (27.0-32.0); Mean Corpuscular Volume 87.9 fL (80-94); Mean Platelet Vol. 11.6 fl (6.2-12.0); Monocyte# 0.94 X10^3/uL; Monocyte% 9.8 % (0-10); NRBC Flagged by Analyzer 0 % (0-5); Neutrophil # 6.74 X10^3/uL (2.7-7.7); Neutrophil % 70.7 % (47-70); Platelet Count 198 K/mm3 (150-450); RBC Distribution Width CV 14.6 % (11.6-14.6); RBC Distribution Width SD 46.9 fl (35.1-43.9); Red Blood Count 5.27 M/mm3 (4.6-6.2); White Blood Count 9.6 K/mm3 (4.4-11.0)
[2023-01-12 06:24] LABS: Partial Thromboplast Time 31.9 Seconds (24.1-36.2)
[2023-01-12] MEDS: Heparin Injection (Vial) 5,000 UNIT/ML VIAL IV (06:36)
[2023-01-12 06:39] LABS: Anion Gap 5 (5-15); BUN 24 mg/dL (7-18); Calcium,Total 9.5 mg/dL (8.5-10.1); Chloride 104 mmol/L (98-107); EST Glomerular Filtration Rate 65 mL/min (>60); Est Glom Filt Rate - Afr Amer 78 mL/min (>60); Estimated Creatinine Clearance 68.26 ml/min; Glucose 163 mg/dL (74-106); Potassium 4.3 mmol/L (3.5-5.1); Sodium Level 135 mmol/L (136-145)
--- NOTE | 2023-01-12 07:24 | PN.HOSP_ITS ---
Reason for Visit Reason for Visit: Diagnoses Non-ST elevation (NSTEMI) myocardial infarction (01/11/23) Subjective Subjective Note chest pain at this time, not feeling short of breath, awaiting cardiology eval Objective Data Objective Data Vital Signs: Vital Signs Temp Pulse Resp BP Pulse Ox O2 Del Method 97.2 F L 65 16 106/64 98 Room Air 01/12/23 04:30 01/12/23 04:30 01/12/23 04:30 01/12/23 04:30 01/12/23 04:30 01/12/23 04:30 Oxygen Delivery Method Room Air Weight: 111.8 kg Body Mass Index (BMI) 33.4 Intake & Output: Intake and Output for Last 24 Hours 01/10/23 01/11/23 01/12/23 23:59 23:59 23:59 Intake Total 997.67 / 1247.67 336.4 / 336.4 Balance 997.67 / 1247.67 336.4 / 336.4 Lab / Micro Data 01/12/23 05:10 01/12/23 05:10 Labs: Laboratory Results - last 24 hr 01/11/23 13:20: WBC 14.4 H, RBC 5.44, Hgb 15.5, Hct 47.2, MCV 86.8, MCH 28.5, MCHC 32.8, RDW Std Deviation 46.4 H, RDW Coeff of Sumit 14.7 H, Plt Count 228, MPV 11.9, Immature Gran % (Auto) 0.600, Neut % (Auto) 78.9 H, Lymph % (Auto) 11.1 L, [place] % (Auto) 7.3, Eos % (Auto) 1.8, Baso % (Auto) 0.3, Absolute Neuts (auto) 11.4 H, Absolute Lymphs (auto) 1.61, Nucleated RBC % 0, PT 13.2, INR 1.0, APTT 28.7, Sodium 136, Potassium 4.1, Chloride 105, Carbon Dioxide 24.0, Anion Gap 7, BUN 28 H, Creatinine 1.32 H, Estim Creat Clear Calc 62.05, Est GFR (MDRD) Af Amer 70, Est GFR (MDRD) Non-Af 58 L, BUN/Creatinine Ratio 21.2 H, Glucose 138 H, Calcium 9.6, Magnesium 1.9, Troponin I High Sens 2594 H* 01/11/23 15:55: Troponin I High Sens 5588 H* 01/11/23 17:53: POC Glucose 96 01/11/23 19:14: Troponin I High Sens 9292 H* 01/11/23 20:39: POC Glucose 171 H 01/11/23 21:10: APTT 30.4 01/12/23 05:10: WBC 9.6, RBC 5.27, Hgb 14.9, Hct 46.3, MCV 87.9, MCH 28.3, MCHC 32.2, RDW Std Deviation 46.9 H, RDW Coeff of Sumit 14.6, Plt Count 198, MPV 11.6, Immature Gran % (Auto) 0.500, Neut % (Auto) 70.7 H, Lymph % (Auto) 16.3 L, [place] % (Auto) 9.8, Eos % (Auto) 2.4, Baso % (Auto) 0.3, Absolute Neuts (auto) 6.7, Absolute Lymphs (auto) 1.56, Nucleated RBC % 0, APTT 31.9, Sodium 135 L, Potassium 4.3, Chloride 104, Carbon Dioxide 26.0, Anion Gap 5, BUN 24 H, Creatinine 1.20, Estim Creat Clear Calc 68.26, Est GFR (MDRD) Af Amer 78, Est GFR (MDRD) Non-Af 65, BUN/Creatinine Ratio 20.0, Glucose 163 H, Calcium 9.5 01/12/23 05:45: POC Glucose 150 H Micro: Microbiology 01/11/23 15:39 Mucosa - Nasopharyngeal Respiratory Panel (PCR) - Final Radiography Diagnostic Testing: Radiology Impression Chest X-Ray 01/11/23 13:45 IMPRESSION: Cardiomegaly. The lungs are clear. Electronically Signed: Nile Batista MD at 14:00 EST , Physical Exam Narrative General: Alert, oriented, no apparent distress HEENT: Atraumatic, normocephalic Eyes: Anicteric, normal conjunctiva, extraocular movements grossly intact Neck: Supple Respiratory: Clear to auscultation bilaterally, normal respiratory effort Cardiovascular: Regular rate and rhythm GI: Soft, nontender, nondistended Extremities: No edema Musculoskeletal: Moving all extremities Neuro: No overt focal neurological deficits Skin: No rashes appreciated Psych: Cooperative Assessment & Plan Assessment/Plan (1) Non-STEMI (non-ST elevated myocardial infarction): PLAN: Plan 1. Non-STEMI/CAD status post CABG/HTN/HLD ? Presenting today with chest pain and elevated troponins to 2500 ? We will serial troponins ? Continue with heparin drip ? We will consult cardiology for heart cath in the morning ? Can resume his home blood pressure medications and his cholesterol medications -01/12: We will make patient n.p.o. in the event he has heart cath, troponins 2500 and continue to elevate to over 9000. Cardiology consult 2. DM 2 ? We will hold his home glimepiride as well as his Sitagliptin/metformin combo pill, can continue with his Jardiance ? Accu-Cheks ACHS ? Sliding scale insulin ? We will monitor and make adjustments as necessary -01/12: Continue present regimen DVT: Heparin drip Time spent in the patient's overall evaluation,decision-making process, review of diagnostic data, adjustment of management, discussion with other providers, nursing nursing and ancillary staff involved in patient's care documentation, 35 minutes Charges/Coding Visit Charges Inpatient E&M: 35352 Subs Hosp L2
[2023-01-12] MEDS: Ramipril 5 MG Capsule PO ×2 (09:27→21:58)
[2023-01-12] MEDS: hydroCHLOROthiazide 25 MG Tablet PO (09:28)
--- NOTE | 2023-01-12 09:30 | CASEMGMT ---
RN CM Face to Face with patient for initial transition planning/care coordination assessment. RN CM introduced self and role at [facility]. Patient lying in bed, alert and oriented, at bedside. Patient willing to participate in assessment and is able to answer all questions appropriately. Care providers, pharmacy, and demographics verified. Patient wishes to discharge home, denies need for home health at this time. Patient states he has no further needs or concerns at this time. CM to follow for discharge planning needs that may arise. PCP: [facility] Specialists: Fidel assistant to the dean; JESUS Sparks Preferred Pharmacy: [facility] Insurance: [place] Prescription Benefit: yes Living Will/HPOA: yes, Cha Larkin LNOK: Living Arrangements: Patient lives with in a 2 story home with bed and bath on first floor, 2 steps and railing to enter the home. Patient states he is independent at home. Transportation: self, DME/HHC: Patietn denies DME in the home. No previous HHC or SNF. Disposition Plan: Patient to discharge home with family support and follow-up plans in place. Haylie MOSHER, RN, CM
[2023-01-12] MEDS: Metoprolol(XL)Succ 50 MG Tablet PO (09:39)
[2023-01-12] MEDS: Acetaminophen 325 MG Tablet 650 MG PO (09:40)
[2023-01-12] MEDS: Aspirin E.C. 81 MG Tablet 162 MG PO (10:40)
--- NOTE | 2023-01-12 12:45 | EKG12_ITS ---
Test Reason : AM EKG Blood Pressure : / mmHG Vent. Rate : 066 BPM Atrial Rate : 066 BPM P-R Int : 168 ms QRS Dur : 104 ms QT Int : 438 ms P-R-T Axes : -07 045 090 degrees QTc Int : 459 ms Normal sinus rhythm Incomplete right bundle branch block Anteroseptal infarct , age undetermined ST & T wave abnormality, consider lateral ischemia Abnormal ECG When compared with ECG of 12-JAN-2023 15:06, MANUAL COMPARISON REQUIRED, DATA IS UNCONFIRMED Confirmed by CRISTOPHER DOBBINS, WANDA ([id number]), publication editor CAL CASIANO ([id number]) on 01/24/2023 12:49:49 PM Referred By: Confirmed By:WANDA NICHOLAS MD
--- NOTE | 2023-01-12 12:57 | CRPHASE1 ---
Patient Communication Patient Information Former Patient:: Phase I and Phase II PHII Cardiac Rehab Discussed with Patient:: Yes Guide to Cardiac Rehab Given to Patient:: Yes Cardiac Rehab Facility Choice List Given to Patient:: Yes Communication to Cardiac Rehab Choice Program [facility] PHII:: Communication Given to CR Manager Presentation:: Marvin Kirkland Refer Phase II Cardiac Rehab:: Yes Post Discharge Choice Letter Given to Patient:: Yes Medical/Surgical History Medical History Angina:: Yes CAD:: Yes Congestive Heart Failure: Cardiomyopathy:: No Valve Disease/Replacement:: No Asthma:: No Diabetes:: Yes Diabetes Type I:: No Diabetes Type II:: Yes Hypertension:: Yes Dyslipidemia:: Yes CVA/TIA: PE:: No DVT:: No Surgical History CABG: Yes ICD:: No Pacemaker:: No Cardiac Rehabilitation Info Program Information Cardiac Rehabilitation Program Information: Cardiac Rehab The cardiac rehab team at [facility] consists of highly skilled exercise physiologists, nurses, respiratory therapists and physicians working together with you. Our purpose is to help you have a full recovery and achieve the goals you set for yourself. Over the years many of our patients have returned to activities they assumed they would never do again! We can help restore your confidence and motivation to make lifestyle changes that can have a significant impact on your health and quality of life! We can help answer questions and concerns you may have about exercise, lifestyle, medications, diet, stress and anxiety which are common following a hospitalization. WE monitor ECG and vital signs during exercise and discuss your progress with you and report to your physician(s). Cardiac Rehab is proven to help reduce readmissions, improve functional capacity and lower recurrence of problems with your heart. Our Cardiac Rehab program is Certified by the [place] [employer] Pulmonary [employer] (AACVPR) and Accredited by the [place] [employer] through our [facility]. You can contact us at . We invite you to call us with your questions or to get started in our program. If you have other questions or concerns be sure to ask your physician/provider during your follow-up visit. WE look forward to seeing you!
--- NOTE | 2023-01-12 12:58 | CRPH1.INSTRU ---
General Education Discussed with Patient CAD and cardiac anatomy and function:: Patient communicates acknowledgment Explanation of diagnoses and procedures:: Patient communicates acknowledgment Sign/Symptoms of RI:: Patient communicates acknowledgment Antiplatelet therapy: Patient communicates acknowledgment Proper use of NTG-SL: Patient communicates acknowledgment Emergency procedures and activation of EMS: Patient communicates acknowledgment Compliance of all prescribed medications: Patient communicates acknowledgment Smoking Risk Factors Patient Nicotine/Smoking Risk Factors Are:: Non-smoker Recommendations Recommendations Include:: Second-hand smoke recommendation Response Code Nicotine/Smoking Response Code:: Patient communicates acknowledgment Dyslipidemia Recommendations Recommendations Include:: Lipid profile not available Response Code Dyslipidemia Response Code:: Patient communicates acknowledgment Overweight/Obesity Risk Factors Patient Overweight/Obesity Risk Factors Are:: Obesity - > or = 30 Recommendations Recommendations Include:: Weight loss of 5-10%, Reduced calorie diet and Exercise 5-7 times/week Response Code Overweight/Obesity:: Patient communicates acknowledgment Hypertension Recommendations Recommendations Include:: Maintain BP <130/85 Response Code Hypertension:: Patient communicates acknowledgment Heart Disease Risk Factors Patient Heart Disease Risk Factors Are:: Previous cardiac event Recommendations Recommendations Include:: Educated family members of their risk Response Code Heart Disease Response Code:: Patient communicates acknowledgment Diabetes Recommendations Recommendations Include:: Maintain fasting blood sugars 70-110 md/dL, Maintain HgbA1c of 6% or less, Monitor blood sugar as prescribed, Diabetic dietary guidelines and Decrease/maintain body weight Response Code Diabetes:: Patient communicates acknowledgment Metabolic Syndrome Recommendations Recommendations Include:: Does not meet criteria Sedentary Recommendations Recommendations Include:: Aerobic exercise 5-7 times/week for 20-30 minutes continuously, Benefits of regular exercise, Discussed home walking program and Monitored Outpatient Cardiac Rehab Response Code Sedentary Response Code:: Patient communicates acknowledgment Stress Recommendations Recommendations Include:: Identification of stressors, and assessment of coping skills Response Code Stress Response Code:: Patient communicates acknowledgment
[2023-01-12] MEDS: Escitalopram Oxalate 10 MG Tablet PO (16:01)
[2023-01-12] MEDS: Meclizine HCl 25 MG Tablet PO (16:01)
[2023-01-12] MEDS: Empagliflozin 25 MG Tablet PO (16:01)
--- NOTE | 2023-01-12 16:45 | PCM.CONS.C ---
Assessment & Plan Assessment/Plan (1) Non-STEMI (non-ST elevated myocardial infarction): PLAN: Treated with drug-eluting stent to SVG to OM and SVG to RPDA. We will keep the patient on aspirin, Brilinta, beta-hernan. He is allergic to Lipitor. We can try Crestor. (2) Stented coronary artery: HPI Consult Data Date of Consult: 01/12/23 HPI Narrative Reason for Consultation: Non-STEMI HPI Narrative: PRAVEENA BENJAMIN, is a 62 M who presents with chest pain and was found to have non-STEMI. He underwent coronary angiography which revealed 99% stenosis in the SVG to obtuse marginal and also 95 to 99% stenosis in the SVG to RPDA both of which were treated with drug-eluting stents. Review of systems: All systems reviewed all else is negative except that in the HPI [facility] Medical History (Updated 01/11/23 @ 17:03 by Haylie Benjamin) Acute calculous cholecystitis Atherosclerotic heart disease of [place] coronary artery without angina pectoris Chest pain Coronary artery disease Diabetes Essential (primary) hypertension HLD (hyperlipidemia) Hypertension Incomplete right bundle branch block Kidney stones Myocardial infarct Non-smoker Obesity Type 2 diabetes mellitus Home Medications sitagliptin phosphate 50 mg-metformin 1,000 mg tablet 1 tab PO BID 07/31/17 [History Last Taken Unknown] escitalopram oxalate 10 mg tablet 10 mg PO DAILY 90 days ##90 08/03/17 [History Last Taken Unknown] montelukast 10 mg tablet 10 mg PO DAILY 90 days ##90 08/03/17 [History Last Taken Unknown] empagliflozin 25 mg tablet (Jardiance) 25 mg PO DAILY 05/07/18 [History Last Taken Unknown] aspirin 81 mg tablet,delayed release (Adult Aspirin Regimen) 162 mg PO DAILY 05/12/21 [History Last Taken Unknown] hydrochlorothiazide 25 mg tablet 25 mg PO QDAY #90 tabs 06/16/22 [Rx Last Taken Unknown] metoprolol succinate 50 mg tablet,extended release 24 hr 50 mg PO QDAY #90 tabs 06/16/22 [Rx Last Taken Unknown] ramipril 5 mg capsule 5 mg PO BID #180 caps 06/16/22 [Rx Last Taken Unknown] glimepiride 4 mg tablet 2 mg PO BID 07/28/22 [History Last Taken Unknown] pravastatin 20 mg tablet 20 mg PO QDAY #90 tabs 07/28/22 [Rx Last Taken Unknown] cholecalciferol (vitamin D3) 50 mcg (2,000 unit) tablet (D3 DOTS) 50 mcg PO DAILY 10/19/22 [History Last Taken Unknown] meclizine 25 mg tablet 25 mg PO DAILY 10/19/22 [History Last Taken Unknown] cholestyramine-aspartame 4 gram oral powder for susp in a packet 1 ea PO DAILY 01/11/23 [History Last Taken Unknown] Allergy/AdvReac Type Severity Reaction Status Date / Time atorvastatin [From Lipitor] AdvReac Severe Myalgias Verified 01/11/23 12:59 Penicillins AdvReac Severe Hives Verified 01/11/23 12:59 Family History Father Heart disease Myocardial infarction Mother Breast cancer Colon cancer Brother Hypertension Brother Diabetes Surgical History (Updated 01/12/23 @ 13:57 by Cha West) H/O coronary artery bypass surgery (10/12/09) History of cholecystectomy History of coronary artery stent placement History of laparoscopic cholecystectomy History of open reduction and internal fixation (ORIF) procedure (2020) Stented coronary artery (01/12/23) Social History Smoking Status: Never smoker alcohol intake: never caffeine: Yes Type: tea Number of servings: 1 what type of physical activity do you participate in: none Physical Exam Const alert and oriented x3 HEENT normocephalic Eyes no scleral icterus Resp normal respiratory effort Psych mental status grossly normal Risk Stratification Risk Stratification Applicable: No Charges/Coding Visit Charges Inpatient E&M: 47885 Init Hosp L2 Objective Data Vital Signs: Vital Signs Temp Pulse Resp BP Pulse Ox O2 Del Method 97.3 F L 67 18 119/78 96 Room Air 01/12/23 16:05 01/12/23 16:05 01/12/23 16:05 01/12/23 16:05 01/12/23 16:05 01/12/23 16:05 Oxygen Delivery Method Room Air Weight: 246 lb 7.629 oz Body Mass Index (BMI) 33.4 Intake & Output: Intake and Output for Last 24 Hours 01/10/23 01/11/23 01/12/23 23:59 23:59 23:59 Intake Total 997.67 / 1247.67 395.2 / 395.2 Balance 997.67 / 1247.67 395.2 / 395.2 Lab / Micro Data 01/12/23 05:10 01/12/23 05:10 Labs: Laboratory Results - last 24 hr 01/11/23 17:53: POC Glucose 96 01/11/23 19:14: Troponin I High Sens 9292 H* 01/11/23 20:39: POC Glucose 171 H 01/11/23 21:10: APTT 30.4 01/12/23 05:10: WBC 9.6, RBC 5.27, Hgb 14.9, Hct 46.3, MCV 87.9, MCH 28.3, MCHC 32.2, RDW Std Deviation 46.9 H, RDW Coeff of Sumit 14.6, Plt Count 198, MPV 11.6, Immature Gran % (Auto) 0.500, Neut % (Auto) 70.7 H, Lymph % (Auto) 16.3 L, [place] % (Auto) 9.8, Eos % (Auto) 2.4, Baso % (Auto) 0.3, Absolute Neuts (auto) 6.7, Absolute Lymphs (auto) 1.56, Nucleated RBC % 0, APTT 31.9, Sodium 135 L, Potassium 4.3, Chloride 104, Carbon Dioxide 26.0, Anion Gap 5, BUN 24 H, Creatinine 1.20, Estim Creat Clear Calc 68.26, Est GFR (MDRD) Af Amer 78, Est GFR (MDRD) Non-Af 65, BUN/Creatinine Ratio 20.0, Glucose 163 H, Calcium 9.5 01/12/23 05:45: POC Glucose 150 H Micro: Microbiology 01/11/23 15:39 Mucosa - Nasopharyngeal Respiratory Panel (PCR) - Final Cardiology Labs/Tests 01/11/23 21:10: APTT 30.4 01/12/23 05:10: WBC 9.6, RBC 5.27, Hgb 14.9, Hct 46.3, MCV 87.9, MCH 28.3, MCHC 32.2, Plt Count 198, MPV 11.6, Immature Gran % (Auto) 0.500, Neut % (Auto) 70.7 H, Lymph % (Auto) 16.3 L, [place] % (Auto) 9.8, Eos % (Auto) 2.4, Baso % (Auto) 0.3, Absolute Neuts (auto) 6.7, Nucleated RBC % 0, APTT 31.9, Sodium 135 L, Potassium 4.3, Chloride 104, Carbon Dioxide 26.0, Anion Gap 5, BUN 24 H, Creatinine 1.20, Est GFR (MDRD) Af Amer 78, Est GFR (MDRD) Non-Af 65, BUN/Creatinine Ratio 20.0, Glucose 163 H, Calcium 9.5 Rhythm: EKG: ECHO: Stress Test: Cardiac Cath: PCI: CT Surgery: Holter monitor: EPS: PPM: CXR: Chest CT Scan:
[2023-01-12 17:18] LABS: Bedside Glucose 114 mg/dL (74-106)
[2023-01-12] MEDS: Heparin Injection (Vial) 5,000 UNIT/ML VIAL 5000 UNIT SC (21:57)
[2023-01-12] MEDS: Pravastatin 20 MG Tablet PO (21:58)
[2023-01-12] MEDS: TICAGRELOR 90 MG TABLET PO (21:58)
[2023-01-12] MEDS: Insulin Lispro 100 UNIT/ML INSULN.PEN SC (22:03)
[2023-01-12 23:38] LABS: Bedside Glucose 191 mg/dL (74-106)
[2023-01-13 03:55] VITALS: BP 135/84; PULSE 68; RESP 18; TEMP 37.2; O2SAT 96
[2023-01-13] MEDS: Heparin Injection (Vial) 5,000 UNIT/ML VIAL 5000 UNIT SC (05:46)
[2023-01-13] MEDS: Insulin Lispro 100 UNIT/ML INSULN.PEN SC ×2 (06:27→11:35)
[2023-01-13 07:05] LABS: Absolute Lymphocyte Count 1.42 X10^3/uL (0.83-4.51); Absolute Neutrophil Count 7.7 X10^3/uL (2.0-7.7); Basophil# 0.04 X10^3/uL; Basophil% 0.4 % (0-1); Eosinophil# 0.18 X10^3/uL; Eosinophils% 1.7 % (0-5); Hematocrit 48.1 % (40-54); Hemoglobin 15.7 g/dL (13.0-16.5); Lymphocyte # 1.42 X10^3/ul (0.83-4.51); Lymphocyte % 13.5 % (19-41); Mean Corp Hgb Conc 32.6 g/dL (32-36); Mean Corpuscular Hgb 28.3 pg (27.0-32.0); Mean Corpuscular Volume 86.8 fL (80-94); Mean Platelet Vol. 10.8 fl (6.2-12.0); Monocyte# 1.08 X10^3/uL; Monocyte% 10.3 % (0-10); NRBC Flagged by Analyzer 0 % (0-5); Neutrophil # 7.71 X10^3/uL (2.7-7.7); Neutrophil % 73.6 % (47-70); Platelet Count 199 K/mm3 (150-450); RBC Distribution Width CV 14.4 % (11.6-14.6); RBC Distribution Width SD 45.6 fl (35.1-43.9); Red Blood Count 5.54 M/mm3 (4.6-6.2); White Blood Count 10.5 K/mm3 (4.4-11.0)
[2023-01-13 07:13] LABS: Bedside Glucose 164 mg/dL (74-106)
[2023-01-13 08:01] LABS: ALB/GLOB Ratio 0.9 RATIO (0.9-2.4); AST(SGOT) 42 U/L (15-37); Alanine Aminotransfer ALT/SGPT 31 U/L (16-61); Albumin, Serum 3.6 g/dL (3.2-5.0); Alkaline Phosphatase 59 U/L (45-117); Anion Gap 6 (5-15); BUN 23 mg/dL (7-18); BUN/Creat Ratio 17.6 RATIO (10-20); Calcium,Total 9.2 mg/dL (8.5-10.1); Chloride 101 mmol/L (98-107); Creatinine, Serum 1.31 mg/dL (0.70-1.30); EST Glomerular Filtration Rate 59 mL/min (>60); Est Glom Filt Rate - Afr Amer 71 mL/min (>60); Estimated Creatinine Clearance 62.53 ml/min; Globulin 3.8 g/dL (2.2-4.2); Glucose 159 mg/dL (74-106); Potassium 4.1 mmol/L (3.5-5.1); Protein, Total 7.4 g/dL (6.4-8.2); Sodium Level 134 mmol/L (136-145)
[2023-01-13 08:44] VITALS: BP 122/79; PULSE 74; RESP 18; TEMP 36.5; O2SAT 94
[2023-01-13 08:51] VITALS: PULSE 74
[2023-01-13] MEDS: Escitalopram Oxalate 10 MG Tablet PO (08:51)
[2023-01-13] MEDS: Metoprolol(XL)Succ 50 MG Tablet PO (08:51)
[2023-01-13] MEDS: Aspirin E.C. 81 MG Tablet PO (08:51)
[2023-01-13] MEDS: Empagliflozin 25 MG Tablet PO (08:51)
[2023-01-13] MEDS: hydroCHLOROthiazide 25 MG Tablet PO (08:51)
[2023-01-13] MEDS: TICAGRELOR 90 MG TABLET PO (08:51)
[2023-01-13] MEDS: Meclizine HCl 25 MG Tablet PO (08:52)
[2023-01-13] MEDS: Ramipril 5 MG Capsule PO (08:52)
--- NOTE | 2023-01-13 10:00 | EKG12_ITS ---
Test Reason : POST PCI Blood Pressure : / mmHG Vent. Rate : 064 BPM Atrial Rate : 064 BPM P-R Int : 164 ms QRS Dur : 102 ms QT Int : 416 ms P-R-T Axes : -28 131 149 degrees QTc Int : 429 ms Critical Test Result: STEMI Normal sinus rhythm Incomplete right bundle branch block Left posterior fascicular block Septal infarct , age undetermined Inferior infarct Abnormal ECG When compared with ECG of 11-JAN-2023 13:08, MANUAL COMPARISON REQUIRED, DATA IS UNCONFIRMED Confirmed by CRISTOPHER DOBBINS, WANDA ([id number]), editor trade journal CAL CASIANO ([id number]) on 01/24/2023 12:51:50 PM Referred By: SAVANNA Confirmed By:WANDA NICHOLAS MD
[2023-01-13 12:13] LABS: Bedside Glucose 219 mg/dL (74-106)
--- NOTE | 2023-01-13 12:24 | DCINST_ITS ---
Discharge Instructions Diet Discharge Diet: - (-DASH diet, 3000 mg sodium restriction, 2 L fluid restriction) Activity Discharge Activity: - (Increase activity as tolerated) Follow Up Care Test Results: Test results from this visit will be discussed in further detail at your follow- up appointment, if applicable. Discharge Plan Admission Admit Date/Time: 01/11/23 15:20 Primary Reason for Your Visit: Chest pain Attending Provider: Lois Hernandes Primary Care Provider: Emi Dubose Consulting Providers: Marvin Kirkland; Mick De Leon Instructions Patient Instructions: Coronary Angiography, Coronary Stents Additional Instructions / Restrictions: DISCHARGE INSTRUCTIONS PLEASE READ *Please take this with you to your next doctors appointment* -You will be discharged on aspirin and Brilinta as well as Crestor/rosuvastatin. If you get body aches from the rosuvastatin you can discontinue this -You will need to follow-up with cardiology upon discharge, please call the office of Dr. Kirkland upon discharge to schedule your hospital follow-up appointment ( [phone]) -Please call your primary care provider's office upon discharge to schedule a hospital follow up within 1 week. -For any concerning signs or symptoms please call 911 or proceed to the nearest emergency department Discharge Orders/Prescriptions Prescriptions: New aspirin 81 mg Tablet,Delayed Release (Dr/Ec) 81 mg PO DAILYCM 30 Days Qty: 30 0RF Brilinta 90 mg Tablet 90 mg PO BID 30 Days Qty: 60 0RF rosuvastatin [Crestor] 10 mg tablet 10 mg PO DAILY Qty: 30 0RF Continued montelukast 10 mg tablet 10 mg PO DAILY 90 Days Qty: 90 Patient Comments: TAKE 1 TABLET BY MOUTH AT BEDTIME escitalopram oxalate 10 mg tablet 10 mg PO DAILY 90 Days Qty: 90 Patient Comments: TAKE 1 TABLET BY MOUTH DAILY glimepiride 4 mg tablet 2 mg PO BID Jardiance 25 mg tablet 25 mg PO DAILY pravastatin 20 mg tablet 20 mg PO QDAY Qty: 90 3RF meclizine 25 mg tablet 25 mg PO DAILY cholecalciferol (vitamin D3) [D3 DOTS] 50 mcg (2,000 unit) tablet 50 mcg PO DAILY cholestyramine-aspartame 4 gram powder in packet 1 ea PO DAILY hydrochlorothiazide 25 mg tablet 25 mg PO QDAY Qty: 90 3RF ramipril 5 mg capsule 5 mg PO BID Qty: 180 3RF metoprolol succinate 50 mg tablet extended release 24 hr 50 mg PO QDAY Qty: 90 3RF Held sitagliptin phos-metformin 50-1,000 mg tablet 1 tab PO BID Hold Instructions: Resume on 01/15/23. Discontinued aspirin [Adult Aspirin Regimen] 81 mg tablet,delayed release (DR/EC) 162 mg PO DAILY Rx Instructions: 2 tabs qam Referrals / Follow Up: Emi Dubose DO [Primary Care Provider] - Within 1 Week Marvin Kirkland MD [Med Staff - Active Staff] - Within 1 Month Disposition Disposition (needs filled in before D/C Order can be placed): Home, Self Care
--- NOTE | 2023-01-13 12:29 | PCM.DC.SUM ---
Providers Date of Admission: 01/11/23 Date of Discharge: 01/13/23 Primary Care Physician: Emi Dubose DO Consultations 01/11/23 17:03 Consult: Cardiology Routine Consulting Provider: Marvin Kirkland Reason for Consult: Non-STEMI EMERGENT Consult: No MD Notified: Yes Date Notified: 01/11/23 Time Notified: 15:22 Method of Notification: ED Physician Initiated Reason For Visit: NSTEMI Diagnosis Discharge Diagnosis (1) Non-STEMI (non-ST elevated myocardial infarction): Status: Acute Code(s): I21.4 - Non-ST elevation (NSTEMI) myocardial infarction (2) Stented coronary artery: Status: Acute Code(s): Z95.5 - Presence of coronary angioplasty implant and graft Plan # Non-STEMI #CAD status post CABG and 01/12 YARON #HTN/HLD #DM 2 Medications at Discharge Home Medications sitagliptin phosphate 50 mg-metformin 1,000 mg tablet 1 tab PO BID 07/31/17 escitalopram oxalate 10 mg tablet 10 mg PO DAILY 90 days ##90 08/03/17 montelukast 10 mg tablet 10 mg PO DAILY 90 days ##90 08/03/17 empagliflozin 25 mg tablet (Jardiance) 25 mg PO DAILY 05/07/18 hydrochlorothiazide 25 mg tablet 25 mg PO QDAY #90 tabs 06/16/22 metoprolol succinate 50 mg tablet,extended release 24 hr 50 mg PO QDAY #90 tabs 06/16/22 ramipril 5 mg capsule 5 mg PO BID #180 caps 06/16/22 glimepiride 4 mg tablet 2 mg PO BID 07/28/22 pravastatin 20 mg tablet 20 mg PO QDAY #90 tabs 07/28/22 cholecalciferol (vitamin D3) 50 mcg (2,000 unit) tablet (D3 DOTS) 50 mcg PO DAILY 10/19/22 meclizine 25 mg tablet 25 mg PO DAILY 10/19/22 cholestyramine-aspartame 4 gram oral powder for susp in a packet 1 ea PO DAILY 01/11/23 aspirin 81 mg tablet,delayed release 81 mg PO DAILYCM 30 days #30 tabs 01/13/23 rosuvastatin 10 mg tablet (Crestor) 10 mg PO DAILY #30 tabs 01/13/23 ticagrelor 90 mg tablet (Brilinta) 90 mg PO BID 30 days #60 tabs 01/13/23 Hospital Course Procedures Cardiac catheterization and Transthoracic echo Summary of Care Provided Minutes Spent on Discharge: 32 Hospital Course: 62-year-old female history of type 2 diabetes mellitus, hypertension, coronary artery disease with history of bypass presented 01/11/2023 with chest pain. Was found to have elevated troponins and wall motion abnormalities on echo. Patient on heparin drip and cardiology consulted. Patient had heart cath and had YARON to SVG to OM and SVG to RPDA and was on aspirin, Brilinta, beta-matty. He did well and had no further symptoms. Discharge instructions as followed: -You will be discharged on aspirin and Brilinta as well as Crestor/rosuvastatin. If you get body aches from the rosuvastatin you can discontinue this -You will need to follow-up with cardiology upon discharge, please call the office of Dr. Kirkland upon discharge to schedule your hospital follow-up appointment (ph [phone]) -Please call your primary care provider's office upon discharge to schedule a hospital follow up within 1 week. -For any concerning signs or symptoms please call 911 or proceed to the nearest emergency department Physical Exam Narrative General: Alert, oriented, no apparent distress HEENT: Atraumatic, normocephalic Eyes: Anicteric, normal conjunctiva, extraocular movements grossly intact Neck: Supple Respiratory: Clear to auscultation bilaterally, normal respiratory effort Cardiovascular: Regular rate and rhythm GI: Soft, nontender, nondistended Extremities: No edema Musculoskeletal: Moving all extremities Neuro: No overt focal neurological deficits Skin: No rashes appreciated Psych: Cooperative Weight / BMI Weight Weight: 111.8 kg Body Mass Index (BMI) 33.4 ABG / Lab / Microbiology Data 01/13/23 06:53 01/13/23 06:53 Laboratory: Laboratory Results - last 24 hr 01/12/23 17:00: POC Glucose 114 H 01/12/23 22:03: POC Glucose 191 H 01/13/23 06:24: POC Glucose 164 H 01/13/23 06:53: WBC 10.5, RBC 5.54, Hgb 15.7, Hct 48.1, MCV 86.8, MCH 28.3, MCHC 32.6, RDW Std Deviation 45.6 H, RDW Coeff of Sumit 14.4, Plt Count 199, MPV 10.8, Immature Gran % (Auto) 0.500, Neut % (Auto) 73.6 H, Lymph % (Auto) 13.5 L, [place] % (Auto) 10.3 H, Eos % (Auto) 1.7, Baso % (Auto) 0.4, Absolute Neuts (auto) 7.7, Absolute Lymphs (auto) 1.42, Nucleated RBC % 0, Sodium 134 L, Potassium 4.1, Chloride 101, Carbon Dioxide 27.0, Anion Gap 6, BUN 23 H, Creatinine 1.31 H, Estim Creat Clear Calc 62.53, Est GFR (MDRD) Af Amer 71, Est GFR (MDRD) Non-Af 59 L, BUN/Creatinine Ratio 17.6, Glucose 159 H, Calcium 9.2, Total Bilirubin 0.90, AST 42 H, ALT 31, Alkaline Phosphatase 59, Total Protein 7.4, Albumin 3.6, Globulin 3.8, Albumin/Globulin Ratio 0.9 01/13/23 11:33: POC Glucose 219 H Microbiology: Microbiology 01/11/23 15:39 Mucosa - Nasopharyngeal Respiratory Panel (PCR) - Final D/C Instructions Discharge Diet: - (-DASH diet, 3000 mg sodium restriction, 2 L fluid restriction) Meaningful Use Info Meaningful Use Diagnoses (Choose all that apply): AMI AMI/Post PCI/Angioplasty Aspirin given w/in 24hrs of arrival?: Yes ASA at discharge?: Yes Antiplatelet Therapy at Discharge:: Yes Statins at discharge?: Yes Eddie/ARB at discharge?: Yes Beta Matty at discharge?: Yes Done w/ Acute [place] measure.: Yes Documented LVEF (%): 65 Discharge Plan Admission Admit Date/Time: 01/11/23 15:20 Primary Reason for Your Visit: Chest pain Attending Provider: Lois Hernandes Primary Care Provider: Emi Dubose Consulting Providers: Melissa Kirkland Nicholas F Instructions Patient Instructions: Coronary Angiography, Coronary Stents Additional Instructions / Restrictions: DISCHARGE INSTRUCTIONS PLEASE READ *Please take this with you to your next doctors appointment* -You will be discharged on aspirin and Brilinta as well as Crestor/rosuvastatin. If you get body aches from the rosuvastatin you can discontinue this -You will need to follow-up with cardiology upon discharge, please call the office of Dr. Kirkland upon discharge to schedule your hospital follow-up appointment ) -Please call your primary care provider's office upon discharge to schedule a hospital follow up within 1 week. -For any concerning signs or symptoms please call 911 or proceed to the nearest emergency department Discharge Orders/Prescriptions Prescriptions: New aspirin 81 mg Tablet,Delayed Release (Dr/Ec) 81 mg PO DAILYCM 30 Days Qty: 30 0RF Brilinta 90 mg Tablet 90 mg PO BID 30 Days Qty: 60 0RF rosuvastatin [Crestor] 10 mg tablet 10 mg PO DAILY Qty: 30 0RF Continued montelukast 10 mg tablet 10 mg PO DAILY 90 Days Qty: 90 Patient Comments: TAKE 1 TABLET BY MOUTH AT BEDTIME escitalopram oxalate 10 mg tablet 10 mg PO DAILY 90 Days Qty: 90 Patient Comments: TAKE 1 TABLET BY MOUTH DAILY glimepiride 4 mg tablet 2 mg PO BID Jardiance 25 mg tablet 25 mg PO DAILY pravastatin 20 mg tablet 20 mg PO QDAY Qty: 90 3RF meclizine 25 mg tablet 25 mg PO DAILY cholecalciferol (vitamin D3) [D3 DOTS] 50 mcg (2,000 unit) tablet 50 mcg PO DAILY cholestyramine-aspartame 4 gram powder in packet 1 ea PO DAILY hydrochlorothiazide 25 mg tablet 25 mg PO QDAY Qty: 90 3RF ramipril 5 mg capsule 5 mg PO BID Qty: 180 3RF metoprolol succinate 50 mg tablet extended release 24 hr 50 mg PO QDAY Qty: 90 3RF Held sitagliptin phos-metformin 50-1,000 mg tablet 1 tab PO BID Hold Instructions: Resume on 01/15/23. Discontinued aspirin [Adult Aspirin Regimen] 81 mg tablet,delayed release (DR/EC) 162 mg PO DAILY Rx Instructions: 2 tabs qam Referrals / Follow Up: Emi Dubose DO [Primary Care Provider] - Within 1 Week Marvin Kirkland MD [Med Staff - Active Staff] - Within 1 Month Disposition Disposition (needs filled in before D/C Order can be placed): Home, Self Care Charges/Coding Visit Charges Inpatient E&M: 03474 Disch Hosp >30min
[2023-01-13 12:46] VITALS: BP 128/79; PULSE 65; RESP 18; TEMP 36.6; O2SAT 94
[2023-01-14 00:38] LABS: ACT Activated Clotting Time 131 sec (74-137)
--- NOTE | 2023-01-31 13:37 | CL.I_ITS ---
Patient Name: PRAVEENA BENJAMIN Study Date: 01/12/2023 Performing: Aakash Kirkland MD Ht: 72 inches 182.88 cm : 1960 Wt: 246.8 lbs 111.8 kg Age: 62 Gender: male BSA: 2.33 PROCEDURE(S) PERFORMED DC02-([id number])LHC/COR IC14-([id number]/[id number])GRAFT-YARON AND/OR PTCA, SINGLE GRAFT IC14-([id number]/[id number])GRAFT-YARON AND/OR PTCA, SINGLE GRAFT CLINICAL PROFILE AND CO-MORBIDITIES Heart Failure: None CAD Presentations: Non-STEMI. Symptom onset Date/Time: Time Not Available CONCLUSIONS CAD as described.Patent 3 out of 3 bypass grafts with significant stenoses in SVG to OM1 and SVG to RPDA as described. Successful YARON to SVG to OM1 and SVG to RPDA. RECOMMENDATIONS DESCRIPTION OF PROCEDURE The patient arrived to the procedure lab. The risks and benefits of the procedure as well as a full description of our services here and lack of surgical backup were fully explained to the patient and/or their significant other prior to the catheterization. The Timeout was completed, verifying the correct patient and procedure. The patient's procedural site was prepped and draped in the usual fashion. Local anesthetic was given subcutaneously to right groin region with Lidocaine 2%. Using a modified Seldinger technique, arterial access was obtained via the right femoral artery, with Micropuncture set. Left Coronary Artery selective angiography was performed in multiple views using a 5 Fr. JL4 catheter. Right Coronary Artery selective angiography was then performed in multiple views using a 5 Fr. JR 4 catheter. Saphenous Vein graft to the OM 1 selective angiography was performed in multiple views using a 5 Fr. JR 4 catheter. Saphenous Vein graft to the RPDA selective angiography was performed in multiple views using a 5 Fr. JR 4 catheter. Left internal mammary artery graft to the LAD selective angiography was performed in multiple views using a 5 Fr. IM catheterThe images were reviewed and options discussed. A decision was then made to proceed with an Intervention, IVUS or other adjunct procedure. Arterial sheath was exchanged for a 6 Fr Sheath. jr4 Guide catheter was inserted and engaged into the SVG to the OM 1. bmw Guide wire was advanced to the 1st OM. priyank 3.5 x 18 Drug Eluting stent was advanced across the lesion in the svg-om1 mid Angiogram performed post stent deployment. Angiogram performed post stent deployment. al1 Guide catheter was inserted and engaged into the SVG to the Rt PDA. bmw Guide wire was advanced to the svg-rpda emerge 3.00 x 12 Balloon catheter was advanced across lesion in the svg-rpda mid PTCA balloon inflated at 8 atms for 8 secs. Angiogram performed post balloon dilatation. orsiro 3.0 x 40 Drug Eluting stent was advanced across the lesion in the svg-rpda mid Angiogram performed post stent deployment. orsiro 3.0 x 22 Drug Eluting stent was advanced across the lesion in the svg-rpda mid Angiogram performed post stent deployment. Contrast was injected through the sheath and the Right Iliac and Femoral artery were assessed for possible closure device. The arterial sheath was pulled and a Perclose closure device was deployed for hemostasis CORONARY ANGIOGRAPHY DOMINANCE: Right Dominant LEFT MAIN: Moderate diffuse disease LEFT ANTERIOR DESCENDING ARTERY: OSTIAL LAD: is occluded CIRCUMFLEX ARTERY: PROX CIRC: is occluded RIGHT CORONARY ARTERY: PROX RCA: is occluded GRAFTS: GIL graft to the LAD is patent Saphenous Vein graft to the 1st OM has a mid lesion of 99 % Saphenous Vein graft to the RPDA has a mid lesion of 99 % INTERVENTION INFORMATION LESION SITE: Vein > to 1st OM Segment Number: 20-First obtuse marginal branch segment - 1st OM , Lesion Location: Body Lesion Complexity: High/C, chronic total occlusion: No, lesion at bifurcation: No, thrombus present: Yes, lesion length: 12 mm, culprit lesion: Yes Pre Stenosis: 99 % Pre intervention JULIETTE flow: 3 PROCEDURE: Drug Eluting Stent with pre dilatation. Post Stenosis: 0 % Post intervention JULIETTE flow: 3 Lesion Devices: Cordis 6 Fr JR4 100cm Guide Catheter Shukla .014 190cm [employer] [place] Straight Medtronic 3.5 x 18 PRIYANK FRONTIER YARON LESION SITE: Saphaenous Vein Graft to the RPDA lesion location in the mid graft segment Lesion Complexity: High/C, chronic total occlusion: No, lesion at bifurcation: No, thrombus present: Yes, lesion length: 28 mm, culprit lesion: Yes, Previously treated lesion: No Pre Stenosis: 99 % Pre intervention JULIETTE flow: 3 PROCEDURE: Drug Eluting Stent with pre dilatation. Post Stenosis: 0 % Post intervention JULIETTE flow: 3 Lesion Devices: Shukla .014 190cm [employer] [place] Straight Mauri Sci EMERGE MR 3.00x12 BALLOON [employer] [place] MR YARON 3.0x40 Biotronik [employer] [place] MR YARON 3.0x22 COMPLICATIONS No Complications PROCEDURE MEDICATIONS Versed 1 mg IV Fentanyl 50 mcg IV Oxygen: 2 L/min via nasal cannula Brilinta 180 mg PO @ 01/12/2023 12:20:10 Heparin 5000 unit(s) IV 01/12/2023 11:36:00 Heparin 2000 unit(s) IV 01/12/2023 11:55:19 Nitro 100 mcg IC 01/12/2023 11:45:20 SUMMARY OF HEMODYNAMIC DATA Time AIR REST ECG 10:54:55 AO 119/47 (59) SA 11:16:05 Signed By Aakash Kirkland MD On 01/31/2023 13:36:27 Aakash Kirkland MD
== END 2023-01-13 13:21 | disposition home or self-care (01) | DRG 322 ==
LOC: ED 13:43 → PCU 15:26
PROVIDERS: Admitting Provider Family Medicine; Emergency Provider Emergency Medicine; PCP Family Medicine; Visit Provider Internal Medicine
DX: I21.4 Non-ST elevation (NSTEMI) myocardial infarction (principal); I25.810 Atherosclerosis of coronary artery bypass graft(s) without angina pectoris; E11.9 Type 2 diabetes mellitus without complications; I10 Essential (primary) hypertension; E78.5 Hyperlipidemia, unspecified; I25.2 Old myocardial infarction; E66.9 Obesity, unspecified; Z68.34 Body mass index [BMI] 34.0-34.9, adult; Z95.1 Presence of aortocoronary bypass graft; Z95.5 Presence of coronary angioplasty implant and graft; Z79.02 Long term (current) use of antithrombotics/antiplatelets; Z79.82 Long term (current) use of aspirin; Z79.84 Long term (current) use of oral hypoglycemic drugs; Z79.899 Other long term (current) drug therapy; Z82.49 Family history of ischemic heart disease and other diseases of the circulatory system
CPT/HCPCS: 36415; 71045; 80048; 80053; 82962; 83735; 84484; 85025; 85347; 85610; 85730; 87633; 92937; 93005; 93454; 99152; 99153; 99285; C1874; J7030; Q9967; A4216; C1725; C1760; C1769; C1887; C9604; J1327

== ENCOUNTER → 2023-11-16 | Outpatient (CLI) | payer BC, SELFPAY ==
[2023-11-16 07:35] LABS: AST(SGOT) 29 U/L (15-37); Alanine Aminotransfer ALT/SGPT 33 U/L (16-61); Albumin, Serum 3.7 g/dL (3.2-5.0); Alkaline Phosphatase 57 U/L (45-117); Bilirubin, Direct 0.09 mg/dL (0.00-0.30); Cholesterol 155 mg/dL (200); Globulin 3.8 g/dL (2.2-4.2); High Density Lipoprotein 28 mg/dL; Protein, Total 7.5 g/dL (6.4-8.2); Triglycerides 315 mg/dL; Very Low Density Lipoprotein 63 mg/dL (5-40)
== END | disposition home or self-care (01) ==
LOC: LAB 06:31
PROVIDERS: PCP Family Medicine; Referring Provider Nurse Practitioner Gerontology; Visit Provider Nurse Practitioner Gerontology
DX: E78.00 Pure hypercholesterolemia, unspecified (principal)
CPT/HCPCS: 36415; 80061; 80076

== ENCOUNTER → 2024-12-26 | Outpatient (CLI) | payer BC, SELFPAY ==
--- OUTSIDE RECORDS SUMMARY | 2024-12-26 06:41 | XMS RPT_ITS | CCD ---
Author Organization [facility] Care Team Providers Care Paster Supervisor Name Role Phone Juli Gomes Unavailable Unavailable MD Parra Cyril S Unavailable Talya Bunn PA-C Unavailable [phone] Yadira Rand MD Unavailable Dr. Theo Mcpherson Referring Provider Dr. Abiodun Parra Attending Provider WAN Benoit Primary Care Provider Dr. Abiodun Parra Other Provider Dr. Dru Deleon Primary Care Provider [phone] Dru Deleon Primary Care Provider [phone] Dru Deleon Referring Provider [phone] Dr. Abiodun Parra Attending Provider DO Emi Dubose Primary Care Provider Dr. Adam Pang Emergency Provider Dr. Trevin Gomez Admit Provider Dr. Trevin Gomez Other Provider ROBERT Hawk Attending Provider Dr. Trevin Gomez Attending Provider Dr. Curly Coffey Attending Provider DO Emi Dubose Primary Care Provider [phone] Dr. Adam Pang Emergency Provider Dr. Trevin Gomez Admit Provider Dr. Trevin Gomez Other Provider ROBERT Hawk Attending Provider Dr. Palomo Das Attending Provider Dr. Trevin Gomez Referring Provider Dr. Trevin Gomez Attending Provider Dr. Curly Coffey Attending Provider DO Emi Dubose Referring Provider Dr. Gilda Diaz Emergency Provider Dr. Mick De Leon Admit Provider Dr. Mick De Leon Other Provider Dr. Marvin Kirkland Other Provider Dr. Lois Hernandes Attending Provider Dr. Lois Hernandes Other Provider Dr. Marvin Kirkland Attending Provider Theo Jang NP Attending Unavailable Tessy, Chalon Primary Care Unavailable Tessy, Chalon Referring Unavailable Tessy, Chalon Primary Care Unavailable Hunter ROBERT, Jeri Attending Unavailable Janey Vera Referring Unavailable Tessy, Chalon Primary Care Unavailable Hunter ROBERT, Jeri Attending Unavailable Hunter ROBERT, Jeri Referring Unavailable Allergies Allergy Classification Reported Allergen(s) Allergy Type Date of Onset Reaction(s) Facility (3 sources) atorvastatin Drug Allergy 1 Myalgias [facility] Work Phone: (5 sources) penicillin; Translations: [PENICILLIN] Drug Allergy 1 Hives [facility] Work Phone: (2 sources) Pollen; Translations: [POLLEN] allergy to substance 1 [facility] Work Phone: (6 sources) atorvastatin Drug Allergy 2 Myalgias [facility] (7 sources) Penicillins; Translations: [Penicillins] Propensity to adverse reactions 2 Hives [facility] (1 source) atorvastatin Drug Allergy 4 [facility] Repository Medications Current Medications Medication Drug Class(es) Dates Sig (Normalized) Sig (Original) aspirin 81 mg delayed release oral tablet (20 sources) Nonsteroidal Anti-inflammatory Drug Start: 01-13-2023 take 81 mg by mouth once daily at mealtime Aspirin Active 81 MG PO DAILY WITH MEALS January 13, 2023 12:00am Start: 05-13-2019 End: 01-13-2023 take 2 tablets by mouth once daily in the morning Aspirin (Adult Aspirin Regimen) 81 mg tablet,delayed release (DR/EC) Discontinued 162 MG PO DAILY May 12, 2021 9:04am January 13, 2023 12:27pm 2 tabs qam Start: 05-07-2018 End: 05-13-2019 take 325 mg by mouth once daily Aspirin Discontinued 325 MG PO DAILY May 07, 2018 12:00am May 13, 2019 7:46am Start: 07-31-2017 End: 05-07-2018 Aspirin (Adult Low Dose Aspi rin) 81 mg tablet,delayed release (DR/EC) Discontinued 81 MG PO daily July 30, 2017 11:00pm May 07, 2018 9:13am Start: 07-05-2010 take 1 tablet by santos th once daily ASPIRIN 325 MG TABS One tablet by mouth daily ASPIRIN [id number] Aniyah Brennan Start: 07-05-2010 take 1 tablet by santos th once daily ASPIRIN 81 MG TABS One tablet by mouth daily ASPIRIN [id number] Aibodun Parra MD Start: 07-05-2010 take 1 tablet by santos th once daily ASPIRIN EC 81 MG TBEC One tablet by mouth daily ASPIRIN [id number] Zainab Hanley RN cholecalciferol 0.05 mg oral tablet (5 sources) Vitamin D Start: 10-19-2022 take 1 tablet by mouth once daily Cholecalciferol (Vitamin D3) (D3 Dots) 50 mcg (2,000 unit) tablet Active 50 MCG PO DAILY October 18, 2022 11:00pm take 1 tablet by mouth once luh y VITAMIN D3 50 MCG (1999) TABS 1 tablet by mouth once a day cholecalciferol (vitamin d3) [id number] Tanna Jose Angel RAMIREZ Cholestyramine-Aspartame (4 sources) Start: 01-11-2023 Cholestyramine -Aspartame Active 1 EACH PO DAILY January 11, 2023 12:00am Start: 11-21-2022 End: 01-11-2023 Cholestyramine-Aspartame Dis continued 0 .ROUTE .COMPLEX 60 November 21, 2022 12:35pm January 11, 2023 1:34pm 4 G ORALLY TWICE A DAY ADMINISTER W/MEAL AVOID OTHER MEDS WITHIN 1HOUR BEFORE OR 4-6HR AFTER DOSE empagliflozin 25 mg oral tablet (8 sources) Sodium-Glucose Cotransporter 2 Inhibitor Start: 05-07-2018 take 1 tablet by mouth once daily Empagliflozin (Jardiance) 25 mg tablet Active 25 MG PO DAILY May 07, 2018 12:00am escitalopram 10 mg oral tablet (14 sources) Serotonin Reuptake Inhibitor Start: 08-03-2017 take 10 mg by mouth once daily Escitalopram Oxalate Active 10 MG PO DAILY 90 90 August 02, 2017 11:00pm Start: 10-19-2011 End: 01-06-2015 take 1 tablet by mouth once daily LEXAPRO 10 MG TABS One tablet by mouth daily ESCITALOPRAM OXALATE [id number] Yamileth Burnham PA-C glimepiride 4 mg oral tablet (14 sources) Sulfonylurea Start: 07-28-2022 take 2 mg by mouth twice daily Glimepiride Active 2 MG PO TWICE A DAY July 28, 2022 8:56am Start: 07-13-2016 End: 07-28-2022 take 4 mg by mouth once daily Glimepiride Discontinued 4 MG PO daily July 30, 2017 11:00pm July 28, 2022 8:58am meclizine hydrochloride 25 mg oral tablet (5 sources) Antiemetic Start: 10-19-2022 take 25 mg by mouth once daily Meclizine Active 25 MG PO DAILY October 18, 2022 11:00pm take 1 tablet by mouth once luh y MECLIZINE HCL 25 MG TABS 1 tablet by mouth once a day blake [id number] Tanna Jose Angel RAMIREZ metFORMIN hydrochloride 1000 mg / SITagliptin 50 mg oral tablet (11 sources) Biguanide, Dipeptidyl Peptidase 4 Inhibitor Start: 07-31-2017 take 1 tablet by mouth twice daily Sitagliptin Phos-Metformin Active 1 TABLET PO TWICE A DAY July 30, 2017 11:00pm On Hold: Resume on 01/15/23. Start: 01-13-2016 take 1 tablet by santos th twice daily JANUMET 50-1000 MG TABS One tablet by mouth twice daily SITAGLIPTIN-METFORMIN HCL [id number] Abiodun Parra MD montelukast 10 mg oral tablet (14 sources) Leukotriene Receptor Antagonist Start: 08-03-2017 take 10 mg by mouth once daily Montelukast Active 10 MG PO DAILY 90 90 August 02, 2017 11:00pm Start: 07-05-2010 End: 01-06-2015 take 1 tablet by mouth once daily SINGULAIR 10 MG TABS One tablet by mouth daily MONTELUKAST SODIUM [id number] Yamileth Burnham PA-C rosuvastatin calcium 10 mg oral tablet (19 sources) HMG-CoA Reductase Inhibitor Start: 01-13-2023 take 1 tablet by mouth once daily Rosuvastatin (Crestor) 10 mg tablet Active 10 MG PO DAILY January 13, 2023 12:00am Start: 04-15-2013 CRESTOR 10 MG TABS One tablet by mouth 4 days a week and 2 tablets 2 days a week ROSUVASTATIN CALCIUM [id number] Yamileth Burnham PA-C Start: 04-15-2013 End: 10-19-2014 CRESTOR 20 MG TABS 1/2 table t 4 days per week and a whole tablet 3 days per week ROSUVASTATIN CALCIUM [id number] Cha Levine RN Start: 10-17-2012 CRESTOR 20 MG TABS 1/2 tablet daily ROSUVASTATIN CALCIUM [id number] Abiodun Parra MD Start: 07-05-2010 take 1 tablet by santos th at bedtime CRESTOR 20 MG TABS One tablet by mouth at bedtime. ROSUVASTATIN CALCIUM [id number] David Trevino MD ticagrelor 90 mg oral tablet (1 source) Start: 01-13-2023 take 1 tablet by mouth twice daily Ticagrelor (Brilinta) 90 mg Tablet Active 90 MG PO TWICE A DAY 60 January 13, 2023 12:00am Completed/Discontinued Medications Medication Drug Class(es) Dates Sig (Normalized) Sig (Original) acetaminophen 325 mg / HYDROcodone bitartrate 5 mg oral tablet (6 sources) Opioid Agonist Start: 02-23-2021 End: 05-12-2021 take 1 tablet by mouth every six hours as needed Hydrocodone-Acetam inophen Discontinued 1 TABLET PO EVERY 6 HOURS NEEDED 02 04February 23, 2021 May 12, 2021 9:04am cephalexin 500 mg oral capsule (8 sources) Cephalosporin Antibacterial Start: 02-23-2021 End: 05-12-2021 take 500 mg by mouth every six hours Cephalexin Discontinued 500 MG PO EVERY 6 HOURS February 23, 2021 12:00am May 12, 2021 9:04am take 1 capsule by mouth four immanuel es daily CEPHALEXIN 500 MG CAPS 1 capsule by mouth four times a day cephalexin [id number] Tanna Walter LPN Cholestyramine-Aspartame (Cholestyramine Light) 4 gram powder in packet (2 sources) Start: 10-27-2022 End: 11-21-2022 Cholestyramine-Aspartame (Cholestyramine Light) 4 gram powder in packet Discontinued 4 GM PO TWICE A DAY 60 October 26, 2022 11:00pm November 21, 2022 12:35pm administer w/meal; avoid other meds within 1hr before or 4-6hr after dose colestipol hydrochloride 1000 mg oral tablet (6 sources) Bile Acid Sequestrant Start: 04-25-2012 End: 10-17-2012 take 1 tablet by mouth twice daily COLESTID 1 GM TABS one tablet by mouth twice a day COLESTIPOL HCL [id number] David Trevino MD ezetimibe 10 mg oral tablet (6 sources) Dietary Cholesterol Absorption Inhibitor Start: 04-06-2011 End: 10-19-2011 take 1 tablet by mouth once daily ZETIA 10 MG TABS one tablet by mouth daily EZETIMIBE [id number] David Trevino MD fish oil (6 sources) Start: 07-05-2010 End: 10-17-2012 take 1 tablet by mouth once daily FISH OIL CAPS One tablet by mouth daily OMEGA-3 FATTY ACIDS CAPS [id number] Abiodun Parra MD Start: 07-05-2010 take 1 tablet by santos th once daily FISH OIL CAPS One tablet by mouth daily OMEGA-3 FATTY ACIDS CAPS [id number] Aniyah Brennan hydroCHLOROthiazide 25 mg oral tablet (20 sources) Thiazide Diuretic Start: 07-31-2017 End: 06-16-2022 take 25 mg by mouth once daily Hydrochlorothiazide Discontinued 25 MG PO daily May 12, 2021 9:05am June 16, 2022 3:56pm Start: 04-10-2011 take 1 tablet by santos th once daily HYDROCHLOROTHIAZIDE 25 MG TABS One tablet by mouth daily HYDROCHLOROTHIAZIDE [id number] Yamileth Burnham PA-C Start: 04-06-2011 HYDROCHLOROTHI AZIDE 12.5 MG TABS one tablet by mouth luh HYDROCHLOROTHIAZIDE [id number] David Trevino MD hydroCHLOROthiazide 25 mg / triamterene 37.5 mg oral tablet (2 sources) Potassium-sparing Diuretic, Thiazide Diuretic take 1 tablet by mouth once daily TRIAMTERENE-HCTZ 37.5-25 MG TABS 1 tablet by mouth once a day triamterene-hydrochlorothiazid [id number] Tanna Walter LPN 24 hr metoprolol succinate 50 mg extended release oral tablet (20 sources) beta-Adrenergic Hernan Sta rt: 1 End : 3 take 50 mg by mouth once daily Metoprolol Succinate Discontinued 50 MG PO daily April 22, 2021 8:37am May 12, 2021 9:05am oxyCODONE hydrochloride 5 mg oral tablet (3 sources) Opioid Agonist Sta rt: 3 End : 3 take 5 mg by mouth every four hours as needed Oxycodone Discontinued 5 MG PO EVERY 4 HOURS NEEDED 14 5 October 21, 2022 January 11, 2023 1:34pm potassium chloride 10 meq extended release oral tablet (6 sources) Sta rt: 2 End : 3 take 1 tablet by mouth once daily POTASSIUM CHLORIDE ER 10 MEQ CR-TABS one table by mouth daily POTASSIUM CHLORIDE [id number] Abiodun Parra MD pravastatin sodium 20 mg oral tablet (20 sources) HMG-CoA Reductase Inhibitor Sta rt: 5 End : 3 take 20 mg by mouth once daily Pravastatin Discontinued 20 MG PO daily March 18, 2019 9:34am May 11, 2020 9:12am Start: 10-19-2014 take 1 tablet by santos th at bedtime PRAVASTATIN SODIUM 40 MG TABS One tablet by mouth at bedtime. PRAVASTATIN SODIUM [id number] Cha Levine RN ramipril 5 mg oral capsule (20 sources) Angiotensin Converting Enzyme Inhibitor Start: 07-05-2010 End: 06-16-2022 take 5 mg by mouth twice daily Ramipril Discontinued 5 MG PO TWICE A DAY 180 April 22, 2021 8:37am May 12, 2021 9:05am 0.25 mg, 0.5 mg dose 1.5 ml semaglutide 1.34 mg/ml pen injector (3 sources) Start: 07-28-2022 End: 10-19-2022 Semaglutide (Ozempic) 0.25 mg or 0.5 mg(2 mg/1.5 mL) pen injector Discontinued 0.5 MG SC EVERY WEEK July 27, 2022 11:00pm October 19, 2022 5:59am Problems Active Problems Problem Classification Problem Date Documented Date Episodic/Chronic Acute myocardial infarction (4 sources) Myocardial infarction; Translations: [Non-ST elevation (NSTEMI) myocardial infarction] 01-11-2023 Chronic Biliary tract disease (6 sources) Acute cholecystitis due to biliary calculus; Translations: [Calculus of gallbladder with acute cholecystitis without obstruction] 10-19-2022 Episodic Conduction disorders (6 sources) Incomplete right bundle branch block; Translations: [Unspecified right bundle-branch block] 05-08-2020 Chronic Coronary atherosclerosis and other heart disease (12 sources) Atherosclerotic heart disease of agdaagux coronary artery without angina pectoris; Translations: [Coronary arteriosclerosis] Onset: 07-05-2010 01-13-2016 Chronic Coronary atherosclerosis and other heart disease (11 sources) Presence of aortocoronary bypass graft; Translations: [Aortocoronary bypass status] Onset: 10-12-2009 01-13-2016 Episodic Crushing injury or internal injury (6 sources) Crushing injury of hand; Translations: [Crushing injury of unspecified hand, initial encounter] 03-03-2021 Episodic Diabetes mellitus without complication (2 sources) Diabetes mellitus; Translations: [Type 2 diabetes mellitus without complications] Onset: 02-28-2021 02-28-2021 Chronic Disorders of lipid metabolism (14 sources) Hyperlipidemia; Translations: [Hyperlipidemia, unspecified] Onset: 07-05-2010 07-05-2010 Chronic Essential hypertension (12 sources) Hypertensive disorder; Translations: [Essential hypertension] Onset: 07-05-2010 07-05-2010 Chronic Fracture of upper limb (2 sources) Displaced fracture of base of third metacarpal bone, right hand, subsequent encounter for fracture with routine healing; Translations: [Aftercare for healing traumatic fracture of other bone] Onset: 02-28-2021 02-28-2021 Episodic Heart valve disorders (4 sources) Aortic valve disorder; Translations: [Nonrheumatic aortic valve disorder, unspecified] 07-28-2022 Chronic Open wounds of extremities (6 sources) Laceration of hand; Translations: [Laceration without foreign body of right hand, initial encounter] 03-03-2021 Episodic Residual codes; unclassified (2 sources) Acquired absence of other specified parts of digestive tract; Translations: [Other postprocedural status] 10-27-2022 Episodic Unclassified (12 sources) Body mass index (BMI) 35.0-35.9, adult; Translations: [Body mass index (BMI) 36.0-36.9, adult] Onset: 10-15-2013 Resolved: 01-13-2016 01-06-2015 Chronic Unclassified (9 sources) Long-term drug therapy; Translations: [Long-term (current) use of other medications] Onset: 08-28-2011 Resolved: 10-22-2014 08-28-2011 Past or Other Problems Problem Classification Problem Date Documented Da te Episodic/Chronic Conditions associated with dizziness or vertigo (3 sources) Dizziness and giddiness; Translations: [Dizziness and giddiness] Onset: 07-05-2010 07-05-2010 Episodic Unclassified (12 sources) FH: Hypertension; Translations: [Family history of ischemic heart disease and other diseases of the circulatory system] Onset: 07-05-2010 01-06-2015 Episodic Unclassified (2 sources) Problem Results Test Name Value Interpretation Reference Range Facility Cardiology Visit Reporton Cardiology Visit Report [facility] [address] [place] [address] OFFICE VISIT Date of Service: 01/24/24 MR#: [id number] Acct: [id number] Name: NEEL BENJAMIN Rep #: [id number] : 1960 Provider: WAN farrell Age/Sex: 63/M Location: [facility] [place] Status: Signed HPI HPI History of Present Illness Details: NEEL BENJAMIN, is a 63 M who presents to the office today for a cardiovascular follow-up. 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 He had an GIL to the LAD, SVG to obtuse marginal, SVG to the posterior descending. He was seen at [facility] in January 2023 for non-ST elevated myocardial infarction in the setting of chest discomfort/tightnes s that resolved with Aspirin. He proceeded with a heart catheterization that showed 99% stenosis of the SVG to obtuse marginal and a 95-99% stenosis of the SVG to RPDA. He underwent drug-eluting stent to SVG to OM and SVG to RPDA. He also has a history of hypertension, hyperlipidemia, and diabetes. He denies chest, arm, jaw, or neck discomfort. He denies palpitations. He denies bilateral lower extremity edema. He denies claudication. He denies shortness of breath with activity, shortness of breath at rest, orthopnea, or PND. He denies chronic cough. He denies significant, sudden weight gain. He denies lightheadedness, dizziness, near-syncope, or syncope. He denies blood in urine, blood in stool, or epistaxis. He denies fever with chills. He denies myalgia. He denies fatigue. His exercise level has remained stable. Intake Vital Signs 08/09/23 10:26 01/24/24 13:54 Height 6 ft 6 ft Weight: 254 lb 252 lb BMI 34.4 34.2 BP 133/78 H 131/72 H Blood Pressure Location Lt brachial Lt brachial Position Sitting Sitting Respiration 18 16 Pulse 66 67 Pulse Source Monitor NIBP Pulse Oximetry (%) 96 Intake Visit Reasons: 6 M FU Personal Care Aid Required: No Is patient in pain?: No Allergies atorvastatin (From Lipitor) Adverse Reaction (Severe, Verified 01/24/24 13:58) Myalgias Penicillins Adverse Reaction (Severe, Verified 01/24/24 13:58) Hives Medications ???Medication ???Instructions ???Recorded ???Confirmed ???Type sitagliptin phosphate 50 1 tab PO BID 07/31/17 01/24/24 History mg-metformin 1,000 mg tablet empagliflozin 25 mg tablet 25 mg PO DAILY 05/07/18 01/24/24 History (Jardiance) cholecalciferol (vitamin D3) 50 50 mcg PO DAILY 10/19/22 01/24/24 History mcg (2,000 unit) tablet (D3 DOTS) meclizine 25 mg tablet 25 mg PO DAILY 10/19/22 01/24/24 History aspirin 81 mg tablet,delayed 81 mg PO DAILYCM 30 days #30 tabs 01/13/23 01/24/24 Rx release hydrochlorothiazide 25 mg tablet 25 mg PO QDAY #90 tabs 06/22/23 01/24/24 Rx metoprolol succinate 50 mg 50 mg PO QDAY #90 tabs 06/22/23 01/24/24 Rx tablet,extended release 24 hr pravastatin 20 mg tablet 20 mg PO DAILY #90 TABLETS 08/13/23 01/24/24 Rx ramipril 5 mg capsule 5 mg PO BID #180 caps 09/28/23 01/24/24 Rx carisoprodol 350 mg tablet 350 mg PO TID PRN 01/24/24 01/24/24 History cholestyramine-aspa rtame 4 gram 4 g PO QDAY 01/24/24 History oral powder for susp in a packet (Cholestyramine Light) escitalopram oxalate 10 mg tablet 10 mg PO QDAY 01/24/24 01/24/24 History glimepiride 2 mg tablet 2 mg PO BID 01/24/24 01/24/24 History montelukast 10 mg tablet 10 mg PO QHS 01/24/24 01/24/24 History ticagrelor 60 mg tablet 60 mg PO BID #180 tabs 01/24/24 01/24/24 Rx Ejection fraction %: 65 Have you fallen in the past year?: No PFSH Medical History (Updated 01/24/24 @ 14:24 by Theo Jang PRINCIPAL ELECTRICAL ENGINEER, PRINCIPAL ELECTRICAL ENGINEER-C) Diabetes Kidney stones Non-smoker Myocardial infarct Coronary artery disease Chest pain Hypertension Acute calculous cholecystitis Incomplete right bundle branch block Obesity Type 2 diabetes mellitus Atherosclerotic heart disease of agdaagux coronary artery without angina pectoris Essential (primary) hypertension HLD (hyperlipidemia) Surgical History (Updated 01/24/24 @ 14:06 by Dominique Dover) History of bilateral cataract extraction Stented coronary artery (01/12/23) History of cholecystectomy History of coronary artery stent placement History of laparoscopic cholecystectomy History of open reduction and internal fixation (ORIF) procedure (2020) H/O coronary artery bypass surgery (10/12/09) Family History Father Heart disease Myocardial infarction Mother Breast cancer Colon cancer Brother Hypertension Brother Diabetes Social History Smoking Status: Never smoker alcohol intake: never caffeine: Yes Type: tea Number of servings: 1 what type of physical activity do you participate in: none ROS (more content not included)... Normal [facility] Lipid Profileon 2023 Cholesterol [Mass/Vol] 155 mg/dL Normal 200 [facility] Comment on above: Result Comment: <200 mg/dL Desirable 200-240 mg/dL Borderline >240 mg/dL High Risk Performed By: #### L 392.5675, L587.8580 #### [facility] [address] [place], [address] Cholesterol in HDL [Mass/Vol] 28 mg/dL Low [facility] Comment on above: Result Comment: The drugs N-Acetylcysteine and Metamizole may falsely depress this assay. Reference Range HDL <40 mg/dL Low HDL Cholesterol HDL >or= 60 mg/dL High HDL Cholesterol Performed By: #### L 500.3400, L500.4100 #### [facility] [address] [place], [address] Cholesterol in LDL [Mass/Vol] 64 mg/dL Normal 0-130 [facility] Comment on above: Performed By: #### L 500.3400, L500.4100 #### [facility] [address] [place], [address] Cholesterol in VLDL [Mass/Vol] 63 mg/dL High 5-40 [facility] Comment on above: Performed By: #### L 500.3400, L500.4100 #### [facility] [address] [place], [address] Triglyceride [Mass/Vol] 315 mg/dL High [facility] Comment on above: Result Comment: The drugs N-Acetylcysteine and Metamizole may falsely depress this assay. Serum Triglycerides Reference Interval Normal <150 mg/dL Borderline high 150 - 199 mg/dL High 200 - 499 mg/dL Very High > or = 500 mg/dL Performed By: #### L 500.3400, L500.4100 #### [facility] [address] [place], [address] Liver Profileon 2023 Albumin [Mass/Vol] 3.7 g/dL Normal 3.2-5.0 [facility] Comment on above: Performed By: #### L 500.3400, L500.4100 #### [facility] [address] [place], [address] ALK P 57 U/L Normal 45-117 [facility] Comment on above: Performed By: #### L 500.3400, L500.4100 #### [facility] [address] [place], [address] ALT [Catalytic activity/Vol] 33 U/L Normal 16-61 [facility] Comment on above: Performed By: #### L 500.3400, L500.4100 #### [facility] [address] [place], [address] AST [Catalytic activity/Vol] 29 U/L Normal 15-37 [facility] Comment on above: Performed By: #### L 500.3400, L500.4100 #### [facility] [address] [place], [address] Bilirubin [Mass/Vol] 0.40 mg/dL Normal 0.20-1.00 [facility] Comment on above: Result Comment: For patients on eltrombopag therapy, use of Dimension Plover TBIL is not recommended. Performed By: #### L 500.3400, L500.4100 #### [facility] [address] [place], [address] Bilirubin.direct [Mass/Vol] 0.09 mg/dL Normal 0.00-0.30 [facility] Comment on above: Performed By: #### L 500.3400, L500.4100 #### [facility] [address] [place], [address] Globulin (S) [Mass/Vol] 3.8 g/dL Normal 2.2-4.2 [facility] Comment on above: Performed By: #### L 500.3400, L500.4100 #### [facility] [address] [place], [address] T PROT 7.5 g/dL Normal 6.4-8.2 [facility] Comment on above: Performed By: #### L 500.3400, L500.4100 #### [facility] [address] [place], [address] Cardiology Visit Reporton Cardiology Visit Report [facility] [address] [place] [address] OFFICE VISIT Date of Service: 08/09/23 MR#: [id number] Acct: [id number] Name: NEEL BENJAMIN Rep #: [id number] : 1960 Provider: WAN judd Age/Sex: 62/M Location: [facility] Status: Signed HPI HPI History of Present Illness Details: NEEL BENJAMIN, is a 62 M who presents to the office today for a cardiovascular follow-up. 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 He had an GIL to the LAD, SVG to obtuse marginal, SVG to the posterior descending. He was seen at [facility] in January 2023 for non-ST elevated myocardial infarction in the setting of chest discomfort/tightnes s that resolved with Aspirin. He proceeded with a heart catheterization that showed 99% stenosis of the SVG to obtuse marginal and a 95-99% stenosis of the SVG to RPDA. He underwent drug-eluting stent to SVG to OM and SVG to RPDA. He also has a history of hypertension, hyperlipidemia, and diabetes. From a cardiac standpoint, the patient is doing well. He denies any palpitations, chest pain, pressure or heaviness. He denies SOB, Orthopnea, and PND. He does not have bleeding issues; no blood in urine, stool or nosebleeds. He denies any decrease in energy level, myalgias, or claudication. He does not have edema, or sudden weight gain. He denies dizziness, lightheadedness, syncopal or near syncopal episodes, and headaches. Intake Vital Signs 01/23/23 08:24 08/09/23 10:26 Height 6 ft 6 ft Weight: 254 lb BMI 34.4 BP 133/78 H Blood Pressure Location Lt brachial Position Sitting Respiration 18 Pulse 66 Pulse Source Monitor Pulse Oximetry (%) 96 Intake Visit Reasons: 1 Y FU Personal Care Aid Required: No Is patient in pain?: No Allergies atorvastatin (From Lipitor) Adverse Reaction (Severe, Verified 08/09/23 10:38) Myalgias Penicillins Adverse Reaction (Severe, Verified 08/09/23 10:38) Hives Medications ???Medication ???Instructions ???Recorded ???Confirmed ???Type sitagliptin phosphate 50 1 tab PO BID 07/31/17 08/09/23 History mg-metformin 1,000 mg tablet empagliflozin 25 mg tablet 25 mg PO DAILY 05/07/18 08/09/23 History (Jardiance) ramipril 5 mg capsule 5 mg PO BID #180 caps 06/16/22 08/09/23 Rx pravastatin 20 mg tablet 20 mg PO QDAY #90 tabs 07/28/22 08/09/23 Rx cholecalciferol (vitamin D3) 50 50 mcg PO DAILY 10/19/22 08/09/23 History mcg (2,000 unit) tablet (D3 DOTS) meclizine 25 mg tablet 25 mg PO DAILY 10/19/22 08/09/23 History aspirin 81 mg tablet,delayed 81 mg PO DAILYCM 30 days #30 tabs 01/13/23 08/09/23 Rx release ticagrelor 90 mg tablet (Brilinta) 90 mg PO BID #180 tabs 01/23/23 08/09/23 Rx hydrochlorothiazide 25 mg tablet 25 mg PO QDAY #90 tabs 06/22/23 08/09/23 Rx metoprolol succinate 50 mg 50 mg PO QDAY #90 tabs 06/22/23 08/09/23 Rx tablet,extended release 24 hr glimepiride 4 mg tablet 2 mg PO TID 08/09/23 08/09/23 History PFSH Medical History Diabetes Kidney stones Non-smoker Myocardial infarct Coronary artery disease Chest pain Hypertension Acute calculous cholecystitis Incomplete right bundle branch block Obesity Type 2 diabetes mellitus Atherosclerotic heart disease of [place] coronary artery without angina pectoris Essential (primary) hypertension HLD (hyperlipidemia) Surgical History Stented coronary artery (01/12/23) History of cholecystectomy History of coronary artery stent placement History of laparoscopic cholecystectomy History of open reduction and internal fixation (ORIF) procedure (2020) H/O coronary artery bypass surgery (10/12/09) Family History Father Heart disease Myocardial infarction Mother Breast cancer Colon cancer Brother Hypertension Brother Diabetes Social History (Reviewed 08/09/23 @ 10:37 by Jeri Harrison PRINCIPAL ELECTRICAL ENGINEER, PRINCIPAL ELECTRICAL ENGINEER-C) Smoking Status: Never smoker alcohol intake: never caffeine: Yes Type: tea Number of servings: 1 what type of physical activity do you participate in: none ROS Const Const: Negative for fatigue, weakness, headache(s), frequent falls, difficulty sleeping or excessive sweating Eyes Eyes: Negative for loss of peripheral vision, transient loss of vision, blurry vision, double vision or tunnel vision ENT ENT: Negative for headache(s), dizziness, Nosebleed/epistaxis or balance problems Cardio Chest Pain: No Palpitations: Yes (extra beat on occasion. Not new. Had since childhood) Edema: None Muscle aches with walking: None Resp Respiratory: Negative for SOB with activity, SOB at rest, SOB or (more content not included)... Normal [facility] Cardiac Cath Interventionon 01-31-2023 Cardiac Cath Intervention [facility] Imaging Services [address] [place] [address] Cardiac Cath Intervention MR#: [id number] Acct: [id number] Name: SOURAVNEEL JENNIFER Rep #: [id number] : 1960 62 From: Marvin Kirkland MD PCP: Emi Dubose, Status:DIS IN Patient Name: NEEL BENJAMIN Study Date: 01/12/2023 Performing: Aakash Kirkland MD Ht: 72 inches 182.88 cm : 1960 Wt: 246.8 lbs 111.8 kg Age: 62 Gender: male BSA: 2.33 PROCEDURE(S) PERFORMED DC02-(58939)LHC/COR IC14-(29968/C9604)G RAFT-YARON AND/OR PTCA, SINGLE GRAFT IC14-(95236/C9604)G RAFT-YARON AND/OR PTCA, SINGLE GRAFT CLINICAL PROFILE AND CO-MORBIDITIES Heart Failure: None CAD Presentations: Non-STEMI. Symptom onset Date/Time: Time Not Available CONCLUSIONS CAD as described.Patent 3 out of 3 bypass grafts with significant stenoses in SVG to OM1 and SVG to RPDA as described. Successful YARON to SVG to OM1 and SVG to RPDA. RECOMMENDATIONS DESCRIPTION OF PROCEDURE The patient arrived to the procedure lab. The risks and benefits of the procedure as well as a full description of our services here and lack of surgical backup were fully explained to the patient and/or their significant other prior to the catheterization. The Timeout was completed, verifying the correct patient and procedure. The patient's procedural site was prepped and draped in the usual fashion. Local anesthetic was given subcutaneously to right groin region with Lidocaine 2%. Using a modified Seldinger technique, arterial access was obtained via the right femoral artery, with Micropuncture set. Left Coronary Artery selective angiography was performed in multiple views using a 5 Fr. JL4 catheter. Right Coronary Artery selective angiography was then performed in multiple views using a 5 Fr. JR 4 catheter. Saphenous Vein graft to the OM 1 selective angiography was performed in multiple views using a 5 Fr. JR 4 catheter. Saphenous Vein graft to the RPDA selective angiography was performed in multiple views using a 5 Fr. JR 4 catheter. Left internal mammary artery graft to the LAD selective angiography was performed in multiple views using a 5 Fr. IM catheterThe images were reviewed and options discussed. A decision was then made to proceed with an Intervention, IVUS or other adjunct procedure. Arterial sheath was exchanged for a 6 Fr Sheath. jr4 Guide catheter was inserted and engaged into the SVG to the OM 1. bmw Guide wire was advanced to the 1st OM. herbert 3.5 x 18 Drug Eluting stent was advanced across the lesion in the svg-om1 mid Angiogram performed post stent deployment. Angiogram performed post stent deployment. al1 Guide catheter was inserted and engaged into the SVG to the Rt PDA. bmw Guide wire was advanced to the svg-rpda emerge 3.00 x 12 Balloon catheter was advanced across lesion in the svg-rpda mid PTCA balloon inflated at 8 atms for 8 secs. Angiogram performed post balloon dilatation. orsiro 3.0 x 40 Drug Eluting stent was advanced across the lesion in the svg-rpda mid Angiogram performed post stent deployment. orsiro 3.0 x 22 Drug Eluting stent was advanced across the lesion in the svg-rpda mid Angiogram performed post stent deployment. Contrast was injected through the sheath and the Right Iliac and Femoral artery were assessed for possible closure device. The arterial sheath was pulled and a Perclose closure device was deployed for hemostasis CORONARY ANGIOGRAPHY DOMINANCE: Right Dominant LEFT MAIN: Moderate diffuse disease LEFT ANTERIOR DESCENDING ARTERY: OSTIAL LAD: is occluded CIRCUMFLEX ARTERY: PROX CIRC: is occluded RIGHT CORONARY ARTERY: PROX RCA: is occluded GRAFTS: GIL graft to the LAD is patent Saphenous Vein graft to the 1st OM has a mid lesion of 99 % Saphenous Vein graft to the RPDA has a mid lesion of 99 % INTERVENTION INFORMATION LESION SITE: Vein > to 1st OM Segment Number: 20-First obtuse marginal branch segment - 1st OM , Lesion Location: Body Lesion Complexity: High/C, chronic total occlusion: No, lesion at bifurcation: No, thrombus present: Yes, lesion length: 12 mm, culprit lesion: Yes Pre Stenosis: 99 % Pre intervention JULIETTE flow: 3 PROCEDURE: Drug Eluting Stent with pre dilatation. Post Stenosis: 0 % Post intervention JULIETTE flow: 3 Lesion Devices: Cordis 6 Fr JR4 100cm Guide Catheter Shukla .014 190cm BMW Harrah Straight Medtronic 3.5 x 18 HERBERT FRONTIER YARON LESION SITE: Saphaenous Vein Graft to the RPDA lesion location in the mid graft segment Lesion Complexity: High/C, chronic total occlusion: No, lesion at bifurcation: No, thrombus present: Yes, lesion length: 28 mm, culprit lesion: Yes, Previously treated lesion: No Pre Stenosis: 99 % Pre intervention JULIETTE flow: 3 PROCEDURE: Drug Eluting Stent with pre dilat (more content not included)... Normal [facility] Absolute lymphocyte countOrd ered By: Lois Hernandes on 01-13-2023 Lymphocytes Auto (Unsp spec) [#/Vol] 1.42 10*3/uL 0.83-4.51 [facility] Basophil percentageOrdered B y: Lois Hernandes on 01-13-2023 Basophils/100 WBC (Bld) 0.4 % 0-1 [facility] Eosinophils/100 WBC (Bld) 1.7 % 0-5 [facility] Neutrophils (Bld) [#/Vol] 7.7 10*3/uL 2.0-7.7 [facility] Neutrophils/100 WBC (Bld) 73.6 % 47-70 [facility] WBC (Bld) [#/Vol] 10.5 10*3/uL 4.4-11.0 [facility] Basophil percentageOrdered B y: Marvin Kirkland on 01-13-2023 Bilirubin [Mass/Vol] 0.90 mg/dL 0.20-1.00 [facility] Comment on above: For patients on eltr ombopag therapy, use of Dimension Plover TBIL is not recommended. Chloride [Moles/Vol] 101 mmol/L 98-107 [facility] Glucose [Mass/Vol] 159 mg/dL 74-106 [facility] Comment on above: Fasting Glucose resu lt greater than or equal to 126 mg/dL suggests DIABETES MELLITUS per A.D.A. criteria. Potassium [Moles/Vol] 4.1 mmol/L 3.5-5.1 [facility] Protein [Mass/Vol] 7.4 g/dL 6.4-8.2 [facility] Sodium [Moles/Vol] 134 mmol/L 136-145 [facility] Blood erythrocytes count (nu mber/volume)Ordered By: Lois Hernandes on 01-13-2023 RBC (Bld) [#/Vol] 5.54 10*6/uL 4.6-6.2 [facility] Blood hemoglobin measurement (mass/volume)Ordered By: Lois Hernandes on 01-13-2023 Hemoglobin (Bld) [Mass/Vol] 15.7 g/dL 13.0-16.5 [facility] Blood lymphocytes/100 leukoc ytesOrdered By: Lois Hernandes on 01-13-2023 Lymphocytes/100 WBC (Bld) 13.5 % 19-41 [facility] Blood monocytes/100 leukocyt esOrdered By: Lois Hernandes on 01-13-2023 Monocytes/100 WBC (Bld) 10.3 % 0-10 [facility] Blood platelet mean volumeOr dered By: Lois Hernandes on 01-13-2023 Platelet mean volume (Bld) [Entitic vol] 10.8 fL 6.2-12.0 [facility] Determination of erythrocyte mean corpuscular volume (MCV)Ordered By: Lois Hernandes on 01-13-2023 MCV (RBC) [Entitic vol] 86.8 fL 80-94 [facility] Glucose Glucometer (BldC) [M ass/Vol]Ordered By: Lois Hernandes on 01-13-2023 Glucose [Mass/Vol] 219 mg/dL 74-106 [facility] Comment on above: MANAGEMENT OF PATIEN T CARE PER NURSING PROTOCOL Hematocrit Auto (Bld) [Volum e fraction]Ordered By: Lois Hernandes on 01-13-2023 Hematocrit (Bld) [Volume fraction] 48.1 % 40-54 [facility] Laboratory - Chemistry and C hemistry - challengeOrdered By: Marvin Kirkland on 01-13-2023 ALP [Catalytic activity/Vol] 59 U/L 45-117 [facility] ALT [Catalytic activity/Vol] 31 U/L 16-61 [facility] CO2 [Moles/Vol] 27.0 mmol/L 21.0-32.0 [facility] Globulin (S) [Mass/Vol] 3.8 g/dL 2.2-4.2 [facility] Urea nitrogen/Creatinine [Mass ratio] 17.6 mg/mg 10-20 [facility] Laboratory - Hematology and Cell countsOrdered By: Lois Hernandes on 01-13-2023 Erythrocyte distribution width (RBC) [Entitic vol] 45.6 fL 35.1-43.9 [facility] Erythrocyte distribution width (RBC) [Ratio] 14.4 % 11.6-14.6 [facility] Immature granulocytes/100 WBC (Bld) 0.500 % 0.0-0.9 [facility] Comment on above: IG% - Immature Granu locytes (promyelocytes, myelocytes and metamyelocytes) > 1% indicates that a LEFT SHIFT is Present. MCH (RBC) [Entitic mass] 28.3 pg 27.0-32.0 [facility] Nucleated RBC/100 WBC (Bld) [Ratio] 0 % 0-5 [facility] MCHC Auto (RBC) [Mass/Vol]Or dered By: Lois Hernandes on 01-13-2023 MCHC (RBC) [Mass/Vol] 32.6 g/dL 32-36 [facility] No Panel InformationOrdered By: Marvin Kirkland on 01-13-2023 Estimated Creatinine Clearance Calc 62.53 ml/min [facility] Estimated GFR (MDRD) Amer 71 mL/min >60 [facility] Comment on above: GFR Calc Estimated GFR (MDRD) Non-Af Amer 59 mL/min >60 [facility] Comment on above: Non- GFR Calc Platelets bldOrdered By: Rika Hernandes on 01-13-2023 Platelets (Bld) [#/Vol] 199 10*3/uL 150-450 [facility] Serum or plasma albumin jay urement (mass/volume)Ordered By: Marvin Kirkland on 01-13-2023 Albumin [Mass/Vol] 3.6 g/dL 3.2-5.0 [facility] Serum or plasma albumin/glob ulin mass ratioOrdered By: Marvin Kirkland on 01-13-2023 Albumin/Globulin [Mass ratio] 0.9 {ratio} 0.9-2.4 [facility] Serum or plasma calcium jay urement (mass/volume)Ordered By: Marvin Kirkland on 01-13-2023 Calcium [Mass/Vol] 9.2 mg/dL 8.5-10.1 [facility] Serum or plasma creatinine m easurement (mass/volume)Ordered By: Marvin Kirkland on 01-13-2023 Creatinine [Mass/Vol] 1.31 mg/dL 0.70-1.30 [facility] Comment on above: The validity of the calculated GFR & GFRAA in patients over 70 years has not been determined. Clinical correlation is essential. Serum or plasma urea nitroge n measurement (mass/volume)Ordered By: Marvin Kirkland on 01-13-2023 Urea nitrogen [Mass/Vol] 23 mg/dL 7-18 [facility] Thin prep Papanicolaou smear with manual screeningOrdered By: Marvin Kirkland on 01-13-2023 Thin prep Papanicolaou smear with manual screening 42 U/L 15-37 [facility] Thin prep Papanicolaou smear with manual screening 6 5-15 [facility] Laboratory - CoagulationOrde red By: Gilda Diaz on 01-12-2023 aPTT Coag (Bld) [Time] 31.9 s 24.1-36.2 [facility] Absolute lymphocyte countOrd ered By: Gilda Diaz on 01-11-2023 Lymphocytes Auto (Unsp spec) [#/Vol] 1.61 10*3/uL 0.83-4.51 [facility] Basophil percentageOrdered B y: Gilda Diaz on 01-11-2023 Basophils/100 WBC (Bld) 0.3 % 0-1 [facility] Chloride [Moles/Vol] 105 mmol/L 98-107 [facility] Eosinophils/100 WBC (Bld) 1.8 % 0-5 [facility] Glucose [Mass/Vol] 138 mg/dL 74-106 [facility] Comment on above: Fasting Glucose resu lt greater than or equal to 126 mg/dL suggests DIABETES MELLITUS per A.D.A. criteria. Neutrophils (Bld) [#/Vol] 11.4 10*3/uL 2.0-7.7 [facility] Neutrophils/100 WBC (Bld) 78.9 % 47-70 [facility] Potassium [Moles/Vol] 4.1 mmol/L 3.5-5.1 [facility] Sodium [Moles/Vol] 136 mmol/L 136-145 [facility] WBC (Bld) [#/Vol] 14.4 10*3/uL 4.4-11.0 [facility] Blood erythrocytes count (nu mber/volume)Ordered By: Gilda Diaz on 01-11-2023 RBC (Bld) [#/Vol] 5.44 10*6/uL 4.6-6.2 [facility] Blood hemoglobin measurement (mass/volume)Ordered By: Gilda Diaz on 01-11-2023 Hemoglobin (Bld) [Mass/Vol] 15.5 g/dL 13.0-16.5 [facility] Blood lymphocytes/100 leukoc ytesOrdered By: Gilda Diaz on 01-11-2023 Lymphocytes/100 WBC (Bld) 11.1 % 19-41 [facility] Blood monocytes/100 leukocyt esOrdered By: Gilda Diaz on 01-11-2023 Monocytes/100 WBC (Bld) 7.3 % 0-10 [facility] Blood platelet mean volumeOr dered By: Gilda Diaz on 01-11-2023 Platelet mean volume (Bld) [Entitic vol] 11.9 fL 6.2-12.0 [facility] Determination of erythrocyte mean corpuscular volume (MCV)Ordered By: Gilda Diaz on 01-11-2023 MCV (RBC) [Entitic vol] 86.8 fL 80-94 [facility] Hematocrit Auto (Bld) [Volum e fraction]Ordered By: Gilda Diaz on 01-11-2023 Hematocrit (Bld) [Volume fraction] 47.2 % 40-54 [facility] INR in Blood by Coagulation assayOrdered By: Gilda Diaz on 01-11-2023 INR Coag (Bld) [Relative time] 1.0 {INR} [facility] Laboratory - Chemistry and C hemistry - challengeOrdered By: Gilda Diaz on 01-11-2023 CO2 [Moles/Vol] 24.0 mmol/L 21.0-32.0 [facility] Magnesium [Mass/Vol] 1.9 mg/dL 1.6-2.6 [facility] Urea nitrogen/Creatinine [Mass ratio] 21.2 mg/mg 10-20 [facility] Laboratory - CoagulationOrde red By: Gilda Diaz on 01-11-2023 aPTT Coag (Bld) [Time] 28.7 s 24.1-36.2 [facility] PT Coag (PPP) [Time] 13.2 s 11.7-14.9 [facility] Laboratory - Hematology and Cell countsOrdered By: Gilda Diaz on 01-11-2023 Erythrocyte distribution width (RBC) [Entitic vol] 46.4 fL 35.1-43.9 [facility] Erythrocyte distribution width (RBC) [Ratio] 14.7 % 11.6-14.6 [facility] Immature granulocytes/100 WBC (Bld) 0.600 % 0.0-0.9 [facility] Comment on above: IG% - Immature Granu locytes (promyelocytes, myelocytes and metamyelocytes) > 1% indicates that a LEFT SHIFT is Present. MCH (RBC) [Entitic mass] 28.5 pg 27.0-32.0 [facility] Nucleated RBC/100 WBC (Bld) [Ratio] 0 % 0-5 [facility] MCHC Auto (RBC) [Mass/Vol]Or dered By: Gilda Diaz on 01-11-2023 MCHC (RBC) [Mass/Vol] 32.8 g/dL 32-36 [facility] No Panel InformationOrdered By: Mick De Leon on 01-11-2023 Troponin I High Sensitivity 9292 pg/mL 3.0-78.0 [facility] Comment on above: Critical Result(s) C alled at: 20:33:04 01/11/2023 by: ARGELIA ZARCO. Results read back by same. Please Note: New Test Units and Gender Specific Reference Ranges. For more information see Policy Stat Procedure Plover High Sensitivity Troponin (TNIH) and attachments. No Panel InformationOrdered By: Gilda Diaz on 01-11-2023 Troponin I High Sensitivity 5588 pg/mL 3.0-78.0 [facility] Comment on above: Critical Result(s) C alled at: 16:21:42 01/11/2023 by: Argelia LEONARD. Results read back by same. Please Note: New Test Units and Gender Specific Reference Ranges. For more information see Policy Stat Procedure Plover High Sensitivity Troponin (TNIH) and attachments. Estimated Creatinine Clearance Calc 62.05 ml/min [facility] Estimated GFR (MDRD) Amer 70 mL/min >60 [facility] Comment on above: GFR Calc Estimated GFR (MDRD) Non-Af Amer 58 mL/min >60 [facility] Comment on above: Non- GFR Calc Platelets bldOrdered By: Roxy Diaz on 01-11-2023 Platelets (Bld) [#/Vol] 228 10*3/uL 150-450 [facility] Respiratory pathogens detect ion panel by molecular detection methodOrdered By: Gilda Diaz on 01-11-2023 Respiratory pathogens DNA and RNA panel LILLIE+probe (Resp) [facility] Serum or plasma calcium jay urement (mass/volume)Ordered By: Gilda Diaz on 01-11-2023 Calcium [Mass/Vol] 9.6 mg/dL 8.5-10.1 [facility] Serum or plasma creatinine m easurement (mass/volume)Ordered By: Gilda Diaz on 01-11-2023 Creatinine [Mass/Vol] 1.32 mg/dL 0.70-1.30 [facility] Comment on above: The validity of the calculated GFR & GFRAA in patients over 70 years has not been determined. Clinical correlation is essential. Serum or plasma urea nitroge n measurement (mass/volume)Ordered By: Gilda Diaz on 01-11-2023 Urea nitrogen [Mass/Vol] 28 mg/dL 7-18 [facility] Thin prep Papanicolaou smear with manual screeningOrdered By: Gilda Diaz on 01-11-2023 Thin prep Papanicolaou smear with manual screening 7 5-15 [facility] Absolute lymphocyte countOrd ered By: Trevin Gomez on 10-21-2022 Lymphocytes Auto (Unsp spec) [#/Vol] 0.30 10*3/uL 0.83-4.51 [facility] Basophil percentageOrdered B y: Trevin Gomez on 10-21-2022 Basophils/100 WBC (Bld) 0.2 % 0-1 [facility] Bilirubin [Mass/Vol] 0.70 mg/dL 0.20-1.00 [facility] Comment on above: For patients on eltr ombopag therapy, use of Dimension Plover TBIL is not recommended. Chloride [Moles/Vol] 100 mmol/L 98-107 [facility] Eosinophils/100 WBC (Bld) 0.0 % 0-5 [facility] Glucose [Mass/Vol] 151 mg/dL 74-106 [facility] Comment on above: Fasting Glucose resu lt greater than or equal to 126 mg/dL suggests DIABETES MELLITUS per A.D.A. criteria. Neutrophils (Bld) [#/Vol] 8.4 10*3/uL 2.0-7.7 [facility] Neutrophils/100 WBC (Bld) 86.2 % 47-70 [facility] Potassium [Moles/Vol] 4.0 mmol/L 3.5-5.1 [facility] Protein [Mass/Vol] 5.7 g/dL 6.4-8.2 [facility] Sodium [Moles/Vol] 134 mmol/L 136-145 [facility] WBC (Bld) [#/Vol] 9.7 10*3/uL 4.4-11.0 [facility] Blood erythrocytes count (nu mber/volume)Ordered By: Trevin Gomez on 10-21-2022 RBC (Bld) [#/Vol] 4.92 10*6/uL 4.6-6.2 [facility] Blood hemoglobin measurement (mass/volume)Ordered By: Trevin Gomez on 10-21-2022 Hemoglobin (Bld) [Mass/Vol] 14.2 g/dL 13.0-16.5 [facility] Blood lymphocytes/100 leukoc ytesOrdered By: Trevin Gomez on 10-21-2022 Lymphocytes/100 WBC (Bld) 3.1 % 19-41 [facility] Blood monocytes/100 leukocyt esOrdered By: Trevin Gomez on 10-21-2022 Monocytes/100 WBC (Bld) 9.9 % 0-10 [facility] Blood platelet mean volumeOr dered By: Trevin Gomez on 10-21-2022 Platelet mean volume (Bld) [Entitic vol] 11.1 fL 6.2-12.0 [facility] Determination of erythrocyte mean corpuscular volume (MCV)Ordered By: Trevin Gomez on 10-21-2022 MCV (RBC) [Entitic vol] 89.2 fL 80-94 [facility] Glucose Glucometer (BldC) [M ass/Vol]Ordered By: Trevin Gomez on 10-21-2022 Glucose [Mass/Vol] 202 mg/dL 74-106 [facility] Comment on above: MANAGEMENT OF PATIEN T CARE PER NURSING PROTOCOL Hematocrit Auto (Bld) [Volum e fraction]Ordered By: Trevin Gomez on 10-21-2022 Hematocrit (Bld) [Volume fraction] 43.9 % 40-54 [facility] Laboratory - Chemistry and C hemistry - challengeOrdered By: Trevin Gomez on 10-21-2022 ALP [Catalytic activity/Vol] 37 U/L 45-117 [facility] ALT [Catalytic activity/Vol] 67 U/L 16-61 [facility] CO2 [Moles/Vol] 26.0 mmol/L 21.0-32.0 [facility] Globulin (S) [Mass/Vol] 2.8 g/dL 2.2-4.2 [facility] Urea nitrogen/Creatinine [Mass ratio] 16.2 mg/mg 10-20 [facility] Laboratory - Hematology and Cell countsOrdered By: Trevin Gomez on 10-21-2022 Erythrocyte distribution width (RBC) [Entitic vol] 46.1 fL 35.1-43.9 [facility] Erythrocyte distribution width (RBC) [Ratio] 14.2 % 11.6-14.6 [facility] Immature granulocytes/100 WBC (Bld) 0.600 % 0.0-0.9 [facility] Comment on above: IG% - Immature Granu locytes (promyelocytes, myelocytes and metamyelocytes) > 1% indicates that a LEFT SHIFT is Present. MCH (RBC) [Entitic mass] 28.9 pg 27.0-32.0 [facility] Nucleated RBC/100 WBC (Bld) [Ratio] 0 % 0-5 [facility] MCHC Auto (RBC) [Mass/Vol]Or dered By: Trevin Gomez on 10-21-2022 MCHC (RBC) [Mass/Vol] 32.3 g/dL 32-36 [facility] No Panel InformationOrdered By: Trevin Gomez on 10-21-2022 Estimated Creatinine Clearance Calc 79.04 ml/min [facility] Estimated GFR (MDRD) Amer 92 mL/min >60 [facility] Comment on above: GFR Calc Estimated GFR (MDRD) Non-Af Amer 76 mL/min >60 [facility] Comment on above: Non- GFR Calc Platelets bldOrdered By: Kwaku Gomez on 10-21-2022 Platelets (Bld) [#/Vol] 126 10*3/uL 150-450 [facility] Serum or plasma albumin jay urement (mass/volume)Ordered By: Trevin Gomez on 10-21-2022 Albumin [Mass/Vol] 2.9 g/dL 3.2-5.0 [facility] Serum or plasma albumin/glob ulin mass ratioOrdered By: Trevin Gomez on 10-21-2022 Albumin/Globulin [Mass ratio] 1.0 {ratio} 0.9-2.4 [facility] Serum or plasma calcium jay urement (mass/volume)Ordered By: Trevin Gomez on 10-21-2022 Calcium [Mass/Vol] 8.4 mg/dL 8.5-10.1 [facility] Serum or plasma creatinine m easurement (mass/volume)Ordered By: Trevin Gomez on 10-21-2022 Creatinine [Mass/Vol] 1.05 mg/dL 0.70-1.30 [facility] Comment on above: The validity of the calculated GFR & GFRAA in patients over 70 years has not been determined. Clinical correlation is essential. Serum or plasma urea nitroge n measurement (mass/volume)Ordered By: Trevin Gomez on 10-21-2022 Urea nitrogen [Mass/Vol] 17 mg/dL 7-18 [facility] Thin prep Papanicolaou smear with manual screeningOrdered By: Trevin Gomez on 10-21-2022 Thin prep Papanicolaou smear with manual screening 84 U/L 15-37 [facility] Thin prep Papanicolaou smear with manual screening 8 5-15 [facility] Whole blood hemoglobin A1c/t otal hemoglobin ratio (mass fraction)Ordered By: Nima Guerrero on 10-20-2022 HbA1c (Bld) [Mass fraction] 8.2 % 3.8-5.6 [facility] Comment on above: Normal < 5.7 % Predi abetic 5.7 - 6.4 % Diabetic >or= 6.5 % Please note range changes. Laboratory - Chemistry and C hemistry - challengeOrdered By: Adam Pang on 10-19-2022 Lipase [Catalytic activity/Vol] 55 U/L 13-75 [facility] Comment on above: Please note:LIPASE r evised reference range effective 22. New Lipase methodology. Expected to produce lower values than the previous assay method. NEW Reference Range: 13 - 75 U/L Absolute lymphocyte counton 01-06-2022 Lymphocytes Auto (Unsp spec) [#/Vol] 2.45 10*3/uL 0.83-4.51 [facility] Work Phone: Basophil percentageon 2021 Basophils/100 WBC (Bld) 0.6 % 0-1 [facility] Work Phone: Eosinophils/100 WBC (Bld) 3.5 % 0-5 [facility] Work Phone: Neutrophils (Bld) [#/Vol] 7.5 10*3/uL 2.0-7.7 [facility] Work Phone: Neutrophils/100 WBC (Bld) 65.2 % 47-70 [facility] Work Phone: WBC (Bld) [#/Vol] 11.5 10*3/uL 4.4-11.0 [facility] Work Phone: Bilirubin [Mass/Vol] 0.40 mg/dL 0.20-1.00 [facility] Work Phone: Comment on above: For patients on eltr ombopag therapy, use of Dimension Plover TBIL is not recommended. Chloride [Moles/Vol] 102 mmol/L 98-107 [facility] Work Phone: Cholesterol [Mass/Vol] 160 mg/dL <200 [facility] Work Phone: Comment on above: <200 mg/dL Desirable 200-240 mg/dL Borderline >240 mg/dL High Risk Glucose [Mass/Vol] 154 mg/dL 74-106 [facility] Work Phone: Comment on above: Fasting Glucose resu lt greater than or equal to 126 mg/dL suggests DIABETES MELLITUS per A.D.A. criteria. Potassium [Moles/Vol] 4.2 mmol/L 3.5-5.1 [facility] Work Phone: Protein [Mass/Vol] 7.2 g/dL 6.4-8.2 [facility] Work Phone: Sodium [Moles/Vol] 137 mmol/L 136-145 [facility] Work Phone: Triglyceride [Mass/Vol] 188 mg/dL <199 [facility] Work Phone: Comment on above: The drugs N-Acetylcy steine and Metamizole may falsely depress this assay.Serum Triglycerides Reference Interval Normal <150 mg/dL Borderline high 150 - 199 mg/dL High 200 - 499 mg/dL Very High > or = 500 mg/dL Blood erythrocytes count (nu mber/volume)on 01-06-2022 RBC (Bld) [#/Vol] 5.55 10*6/uL 4.6-6.2 [facility] Work Phone: Blood hemoglobin measurement (mass/volume)on 01-06-2022 Hemoglobin (Bld) [Mass/Vol] 16.7 g/dL 13.0-16.5 [facility] Work Phone: Blood lymphocytes/100 leukoc yteson 01-06-2022 Lymphocytes/100 WBC (Bld) 21.3 % 19-41 [facility] Work Phone: Blood monocytes/100 leukocyt eson 01-06-2022 Monocytes/100 WBC (Bld) 8.6 % 0-10 [facility] Work Phone: Blood platelet mean volumeon 01-06-2022 Platelet mean volume (Bld) [Entitic vol] 11.5 fL 6.2-12.0 [facility] Work Phone: Determination of erythrocyte mean corpuscular volume (MCV)on 01-06-2022 MCV (RBC) [Entitic vol] 86.5 fL 80-94 [facility] Work Phone: Hematocrit Auto (Bld) [Volum e fraction]on 01-06-2022 Hematocrit (Bld) [Volume fraction] 48.0 % 40-54 [facility] Work Phone: Laboratory - Chemistry and C hemistry - challengeon 01-06-2022 ALP [Catalytic activity/Vol] 45 U/L 45-117 [facility] Work Phone: ALT [Catalytic activity/Vol] 35 U/L 16-61 [facility] Work Phone: CO2 [Moles/Vol] 28.0 mmol/L 21.0-32.0 [facility] Work Phone: Globulin (S) [Mass/Vol] 3.5 g/dL 2.2-4.2 [facility] Work Phone: Urea nitrogen/Creatinine [Mass ratio] 21.8 mg/mg 10-20 [facility] Work Phone: Laboratory - Hematology and Cell countson 01-06-2022 Erythrocyte distribution width (RBC) [Entitic vol] 45.0 fL 35.1-43.9 [facility] Work Phone: Erythrocyte distribution width (RBC) [Ratio] 14.2 % 11.6-14.6 [facility] Work Phone: Immature granulocytes/100 WBC (Bld) 0.800 % 0.0-0.9 [facility] Work Phone: Comment on above: IG% - Immature Granu locytes (promyelocytes, myelocytes and metamyelocytes) > 1% indicates that a LEFT SHIFT is Present. MCH (RBC) [Entitic mass] 30.1 pg 27.0-32.0 [facility] Work Phone: Nucleated RBC/100 WBC (Bld) [Ratio] 0 % 0-5 [facility] Work Phone: MCHC Auto (RBC) [Mass/Vol]on 01-06-2022 MCHC (RBC) [Mass/Vol] 34.8 g/dL 32-36 [facility] Work Phone: No Panel Informationon 01-06 Estimated GFR (MDRD) Amer 79 mL/min >60 [facility] Work Phone: Comment on above: GFR Calc Estimated GFR (MDRD) Non-Af Amer 66 mL/min >60 [facility] Work Phone: Comment on above: Non- GFR Calc Platelets bldon 01-06-2022 Platelets (Bld) [#/Vol] 232 10*3/uL 150-450 [facility] Work Phone: Serum or plasma albumin jay urement (mass/volume)on 01-06-2022 Albumin [Mass/Vol] 3.7 g/dL 3.2-5.0 [facility] Work Phone: Serum or plasma albumin/glob ulin mass ratioon 01-06-2022 Albumin/Globulin [Mass ratio] 1.1 {ratio} 0.9-2.4 [facility] Work Phone: Serum or plasma calcium jay urement (mass/volume)on 01-06-2022 Calcium [Mass/Vol] 9.5 mg/dL 8.5-10.1 [facility] Work Phone: Serum or plasma cholesterol in HDL measurement (mass/volume)on 01-06-2022 Cholesterol in HDL [Mass/Vol] 25 mg/dL >40 [facility] Work Phone: Comment on above: The drugs N-Acetylcy steine and Metamizole may falsely depress this assay. Reference Range HDL <40 mg/dL Low HDL Cholesterol HDL >or= 60 mg/dL High HDL Cholesterol Serum or plasma cholesterol in VLDL measurement (mass/volume)on 01-06-2022 Cholesterol in VLDL [Mass/Vol] 38 mg/dL 5-40 [facility] Work Phone: Serum or plasma creatinine m easurement (mass/volume)on 01-06-2022 Creatinine [Mass/Vol] 1.19 mg/dL 0.70-1.30 [facility] Work Phone: Comment on above: The validity of the calculated GFR & GFRAA in patients over 70 years has not been determined. Clinical correlation is essential. Serum or plasma low density lipoprotein (LDL) cholesterol measurement (mass/volume)on 01-06-2022 Cholesterol in LDL [Mass/Vol] 97 mg/dL 0-130 [facility] Work Phone: Serum or plasma urea nitroge n measurement (mass/volume)on 01-06-2022 Urea nitrogen [Mass/Vol] 26 mg/dL 7-18 [facility] Work Phone: Thin prep Papanicolaou smear with manual screeningon 01-06-2022 Thin prep Papanicolaou smear with manual screening 24 U/L 15-37 [facility] Work Phone: Thin prep Papanicolaou smear with manual screening 07-17 [facility] Work Phone: Whole blood hemoglobin A1c/t otal hemoglobin ratio (mass fraction)on 01-06-2022 HbA1c (Bld) [Mass fraction] 7.9 % 3.8-5.6 [facility] Work Phone: Comment on above: Normal < 5.7 % Predi abetic 5.7 - 6.4 % Diabetic >or= 6.5 % Please note range changes. Clinical Summary: [facility] 05-24-2021 [facility] OP Visit Invalid Interpretation Code [facility] Work Phone: Clinical Summary: [facility] 05-17-2021 number of previous outpatient psychiatric treatments [phone] [facility] Invalid Interpretation Code [facility] Work Phone: Clinical Summary: [facility] 04-19-2021 number of previous outpatient psychiatric treatments [phone] [facility] Invalid Interpretation Code [facility] Work Phone: [facility] OP Visit Invalid Interpretation Code [facility] Work Phone: Basophil percentageon 2021 Chloride [Moles/Vol] 101 mmol/L 98-107 [facility] Work Phone: Cholesterol [Mass/Vol] 143 mg/dL <200 [facility] Work Phone: Comment on above: <200 mg/dL Desirable 200-240 mg/dL Borderline >240 mg/dL High Risk Glucose [Mass/Vol] 159 mg/dL 74-106 [facility] Work Phone: Comment on above: Fasting Glucose resu lt greater than or equal to 126 mg/dL suggests DIABETES MELLITUS per A.D.A. criteria. Potassium [Moles/Vol] 3.9 mmol/L 3.5-5.1 [facility] Work Phone: Sodium [Moles/Vol] 136 mmol/L 136-145 [facility] Work Phone: Triglyceride [Mass/Vol] 225 mg/dL [facility] Work Phone: Comment on above: The drugs N-Acetylcy steine and Metamizole may falsely depress this assay.Serum Triglycerides Reference Interval Normal <150 mg/dL Borderline high 150 - 199 mg/dL High 200 - 499 mg/dL Very High > or = 500 mg/dL Laboratory - Chemistry and C hemistry - challengeon 04-04-2021 CO2 [Moles/Vol] 31.0 mmol/L 21.0-32.0 [facility] Work Phone: Urea nitrogen/Creatinine [Mass ratio] 21.0 mg/mg 10-20 [facility] Work Phone: No Panel Informationon 04-04 Estimated GFR (MDRD) Amer 67 mL/min >60 [facility] Work Phone: Comment on above: GFR Calc Estimated GFR (MDRD) Non-Af Amer 55 mL/min >60 [facility] Work Phone: Comment on above: Non- GFR Calc Serum or plasma calcium jay urement (mass/volume)on 04-04-2021 Calcium [Mass/Vol] 9.8 mg/dL 8.5-10.1 [facility] Work Phone: Serum or plasma cholesterol in HDL measurement (mass/volume)on 04-04-2021 Cholesterol in HDL [Mass/Vol] 20 mg/dL [facility] Work Phone: Comment on above: The drugs N-Acetylcy steine and Metamizole may falsely depress this assay. Reference Range HDL <40 mg/dL Low HDL Cholesterol HDL >or= 60 mg/dL High HDL Cholesterol Serum or plasma cholesterol in VLDL measurement (mass/volume)on 04-04-2021 Cholesterol in VLDL [Mass/Vol] 45 mg/dL 5-40 [facility] Work Phone: Serum or plasma creatinine m easurement (mass/volume)on 04-04-2021 Creatinine [Mass/Vol] 1.38 mg/dL 0.70-1.30 [facility] Work Phone: Comment on above: The validity of the calculated GFR & GFRAA in patients over 70 years has not been determined. Clinical correlation is essential. Serum or plasma low density lipoprotein (LDL) cholesterol measurement (mass/volume)on 04-04-2021 Cholesterol in LDL [Mass/Vol] 78 mg/dL 0-130 [facility] Work Phone: Serum or plasma urea nitroge n measurement (mass/volume)on 04-04-2021 Urea nitrogen [Mass/Vol] 29 mg/dL 7-18 [facility] Work Phone: Thin prep Papanicolaou smear with manual screeningon 04-04-2021 Thin prep Papanicolaou smear with manual screening 4 5-15 [facility] Work Phone: Whole blood hemoglobin A1c/t otal hemoglobin ratio (mass fraction)on 04-04-2021 HbA1c (Bld) [Mass fraction] 7.8 % 3.8-5.6 [facility] Work Phone: Comment on above: Normal < 5.7 % Predi abetic 5.7 - 6.4 % Diabetic >or= 6.5 % Please note range changes. Lab Report: Lipid Profileon 01-04-2017 Cholesterol 148 mg/dL Invalid Interpretation Code 200 [facility] Work Phone: HDL Cholesterol 24 mg[facility] Work Phone: LDL Cholesterol 88 mg/dL Invalid Interpretation Code 0-130 [facility] Work Phone: Triglyceride 181 mg/dL Invalid Interpretation Code [facility] Work Phone: very low density lipoproteins 36 mg/dL Invalid Interpretation Code 5-40 [facility] Work Phone: Lab Report: Liver Profileon 01-04-2017 Alanine aminotransferase (ALT) 33 U/L Invalid Interpretation Code 12-78 [facility] Work Phone: Albumin 3.6 g/dL Invalid Interpretation Code 3.4-5.0 [facility] Work Phone: Alkaline phosphatase (ALP) 47 U/L Invalid Interpretation Code 45-117 [facility] Work Phone: Aspartate aminotransferase (AST) 21 U/L Invalid Interpretation Code 15-37 [facility] Work Phone: Bilirubin (direct) 0.10 mg/dL Invalid Interpretation Code 0.00-0.30 [facility] Work Phone: Bilirubin (total) 0.40 mg/dL Invalid Interpretation Code 0.20-1.00 [facility] Phone: Globulin 3.7 g/dL Invalid Interpretation Code 2.2-4.2 [facility] Phone: Protein 7.3 g/dL Invalid Interpretation Code 6.4-8.2 [facility] Phone: Office Visiton 07-13-2016 Documentation of current medications (procedure) Done Invalid Interpretation Code [facility] Phone: Fall risk assessment Fall risk assessment Invalid Interpretation Code [facility] Phone: Lab Report: Basic Metabolic Profile (BMP)on 02-07-2016 Anion gap 8 mmol/L Invalid Interpretation Code 5-15 [facility] Phone: BUN/Creatinine Ratio 19.6 RATIO Invalid Interpretation Code 10-20 [facility] Phone: Calcium 8.6 mg/dL Invalid Interpretation Code 8.5-10.1 [facility] Phone: Chloride 100 mmol/L Invalid Interpretation Code 98-107 [facility] Phone: CO2 29.0 mmol/L Invalid Interpretation Code 21.0-32.0 [facility] Phone: Creatinine 1.02 mg/dL Invalid Interpretation Code 0.70-1.30 [facility] Work Phone: eGFR (non-black) 97 mL/min/{1.73_m2} Invalid Interpretation Code >60 [facility] Phone: eGFR (non-black) 80 mL/min/{1.73_m2} Invalid Interpretation Code >60 [facility] Work Phone: Glucose mass conc 171 mg/dL High 70-110 [facility] Work Phone: Potassium molar conc 4.0 mmol/L Invalid Interpretation Code 3.5-5.1 [facility] Work Phone: Sodium 137 mmol/L Invalid Interpretation Code 136-145 [facility] Work Phone: Urea nitrogen 20 mg/dL High 7-18 [facility] Work Phone: Lab Report: Liver Profileon 02-07-2016 Alanine aminotransferase (ALT) 35 U/L Invalid Interpretation Code 12-78 [facility] Work Phone: Albumin 3.6 g/dL Invalid Interpretation Code 3.4-5.0 [facility] Work Phone: Alkaline phosphatase (ALP) 39 U/L Low 45-117 [facility] Work Phone: Aspartate aminotransferase (AST) 17 U/L Invalid Interpretation Code 15-37 [facility] Work Phone: Bilirubin (direct) 0.06 mg/dL Invalid Interpretation Code 0.00-0.30 [facility] Work Phone: Bilirubin (total) 0.30 mg/dL Invalid Interpretation Code 0.20-1.00 [facility] Work Phone: Globulin 3.5 g/dL Invalid Interpretation Code 2.3-3.5 [facility] Work Phone: Protein 7.1 g/dL Invalid Interpretation Code 6.4-8.2 [facility] Work Phone: Office Visiton 01-13-2016 Dietary management education, guidance, and counseling (procedure) yes Invalid Interpretation Code [facility] Work Phone: Tobacco use CPHS Former smoker Invalid Interpretation Code [facility] Work Phone: Clinical Lists Updateon 10-2 Left ventricular Ejection fraction 65 % Invalid Interpretation Code [facility] Work Phone: Clinical Lists Updateon 11-03 Hematocrit (HCT) 46.4 % Invalid Interpretation Code [facility] Work Phone: Hemoglobin mass conc (Bld) 16.6 g/dL Invalid Interpretation Code [facility] Work Phone: Platelets 253 10*3/mm3 Invalid Interpretation Code [facility] Work Phone: Thyroid stimulating hormone (TSH) 2.04 u[iU]/mL Invalid Interpretation Code [facility] Work Phone: WBC (Leukocytes) 10.0 10*3/uL Invalid Interpretation Code [facility] Work Phone: Replaced Document: Pedro E CG Observationson 01-06-2015 EKG QRS axis 50 deg Invalid Interpretation Code [facility] Work Phone: Interpretation Sinus Rhythm -Nonspecific QRS widening. -Anteroseptal infarct -age undetermined. ABNORMAL Invalid Interpretation Code [facility] Phone: P [place] 40 deg Invalid Interpretation Code [facility] Work Phone: HI Interval 168 ms Invalid Interpretation Code [facility] Work Phone: Pulse (Heart Rate) 79 /min Invalid Interpretation Code [facility] Work Phone: QRS Duration 110 ms Invalid Interpretation Code [facility] Work Phone: QT Interval new path ms Invalid Interpretation Code [facility] Work Phone: QTc [place] 397 ms Invalid Interpretation Code [facility] Work Phone: T [place] 46 deg Invalid Interpretation Code [facility] Phone: Office Visiton 04-21-2014 cardiac risk group C Invalid Interpretation Code [facility] Work Phone: General cardiovascular disease 10Y risk [#] [place]D'Agostino N/A Invalid Interpretation Code [facility] Work Phone: EKG Report: [facility] ECG Obse rvationson 10-19-2011 Pulse (Heart Rate) 421 ms Invalid Interpretation Code [facility] Work Phone: Lab Report: MGon 04-13-2011 Magnesium 1.9 mg/dL Normal 1.5-2.2 [facility] Work Phone: Office Visiton 04-06-2011 Alcoholism counseling (procedure) no Invalid Interpretation Code [facility] Work Phone: Vital Signs Date Time Vital Sign Value Performing Clinician Facility 01-13-2023 12:46-0500 Body temperature 98 [degF] DO Emi Sedrick Work Phone: [facility] 01-13-2023 12:46-0500 Diastolic blood pressure 79 mm[Hg] DO Emi Sedrick Work Phone: [facility] 01-13-2023 12:46-0500 Heart rate 65 /min DO Emi Sedrick Work Phone: [facility] 01-13-2023 12:46-0500 Respiratory rate 18 /min DO Emi Sedrick Work Phone: [facility] 01-13-2023 12:46-0500 SaO2% (BldA) [Mass fraction] 94 % DO Emi Sedrick Work Phone: [facility] 01-13-2023 12:46-0500 Systolic blood pressure 128 mm[Hg] DO Emi Sedrick Work Phone: [facility] 01-11-2023 16:52-0500 Body height 182.88 cm DO Emi Sedrick Work Phone: [facility] 01-11-2023 16:52-0500 Body mass index (BMI) [Ratio] 33.4 kg/m2 DO Emi Sedrick Work Phone: [facility] 01-11-2023 16:52-0500 Body weight 111.8 kg DO Emi Sedrick Work Phone: [facility] 01-11-2023 16:35-0500 Diastolic blood pressure 88 mm[Hg] DO Emi Sedrick Work Phone: [facility] 01-11-2023 16:35-0500 Heart rate 65 /min DO Emi Soner Work Phone: [facility] 01-11-2023 16:35-0500 Respiratory rate 18 /min DO Emi Soner Work Phone: [facility] 01-11-2023 16:35-0500 Systolic blood pressure 120 mm[Hg] DO Emi Soner Work Phone: [facility] 01-11-2023 13:00-0500 Body mass index (BMI) [Ratio] 34.8 kg/m2 DO Emi Dubose Work Phone: [facility] 01-11-2023 13:00-0500 Body temperature 97.3 [degF] DO Emi Dubose Work Phone: [facility] 01-11-2023 13:00-0500 Body weight 116.4 kg DO Emi Dubose Work Phone: [facility] 01-11-2023 13:00-0500 SaO2% (BldA) [Mass fraction] 98 % DO Emi Dubose Work Phone: [facility] 10-21-2022 14:15-0400 Body temperature 97.5 [degF] Dr. Dru Deleon Work Phone: [facility] 10-21-2022 14:15-0400 Diastolic blood pressure 56 mm[Hg] Dr. Dru Deleon Work Phone: [facility] 10-21-2022 14:15-0400 Heart rate 85 /min Dr. Dru Deleon Work Phone: [facility] 10-21-2022 14:15-0400 Respiratory rate 18 /min Dr. Dru Deleon Work Phone: [facility] 10-21-2022 14:15-0400 Systolic blood pressure 113 mm[Hg] Dr. Dru Deleon Work Phone: [facility] 10-21-2022 09:52-0400 SaO2% (BldA) [Mass fraction] 94 % Dr. Dru Deleon Work Phone: [facility] 10-20-2022 11:04-0400 Body height 182.[address] Dru Deleon Work Phone: [facility] 10-20-2022 11:04-0400 Body mass index (BMI) [Ratio] 34.5 kg/m2 Dr. Dru Deleon Work Phone: [facility] 10-20-2022 11:04-0400 Body weight 115.[address] Dru Deleon Work Phone: [facility] 07-28-2022 09:49-0400 Body mass index (BMI) [Ratio] 34.7 kg/m2 Dr. Dru Deleon Work Phone: [facility] 07-28-2022 09:49-0400 Body weight 116.[address] Dru Deleon Work Phone: [facility] 07-28-2022 09:49-0400 Diastolic blood pressure 64 mm[Hg] Dr. Dru Deleon Work Phone: [facility] 07-28-2022 09:49-0400 Heart rate 66 /min Dr. Dru Deleon Work Phone: [facility] 07-28-2022 09:49-0400 Respiratory rate 16 /min Dr. Dru Deleon Work Phone: [facility] 07-28-2022 09:49-0400 Systolic blood pressure 120 mm[Hg] Dr. Dru Deleon Work Phone: [facility] 05-12-2021 07:53-0500 Body height 182.[address] Theo Mcpherson Work Phone: [facility] Work Phone: 05-12-2021 07:53-0500 Body weight 117.[address] Theo Mcpherson Work Phone: [facility] Work Phone: 05-12-2021 07:53-0500 Diastolic blood pressure 77 mm[Hg] Dr. Theo Mcpherson Work Phone: [facility] Work Phone: 05-12-2021 07:53-0500 Heart rate 74 /min Dr. Theo Mcpherson Work Phone: [facility] Work Phone: 05-12-2021 07:53-0500 Respiratory rate 16 /min Dr. Theo Mcpherson Work Phone: [facility] Work Phone: 05-12-2021 07:53-0500 SaO2% (BldA) [Mass fraction] 96 % Dr. Theo Mcpherson Work Phone: [facility] Work Phone: 05-12-2021 07:53-0500 Systolic blood pressure 130 mm[Hg] Dr. Theo Mcpherson Work Phone: [facility] Work Phone: 02-23-2021 12:34-0500 Body mass index (BMI) [Ratio] 35 kg/m2 Dr. Theo Mcpherson Work Phone: [facility] Work Phone: 02-23-2021 12:34-0500 Body temperature 96.2 [degF] Dr. Theo Mcpherson Work Phone: [facility] Work Phone: 02-23-2021 12:34-0500 Body weight 117.[address] Theo Mcpherson Work Phone: [facility] Work Phone: 02-23-2021 12:34-0500 Diastolic blood pressure 68 mm[Hg] Dr. Theo Mcpherson Work Phone: [facility] Work Phone: 02-23-2021 12:34-0500 Heart rate 72 /min Dr. Theo Mcpherson Work Phone: [facility] Work Phone: 02-23-2021 12:34-0500 Respiratory rate 17 /min Dr. Theo Mcpherson Work Phone: [facility] Work Phone: 02-23-2021 12:34-0500 SaO2% (BldA) [Mass fraction] 91 % Dr. Theo Mcpherson Work Phone: [facility] Work Phone: 02-23-2021 12:34-0500 Systolic blood pressure 115 mm[Hg] Dr. Theo Mcpherson Work Phone: [facility] Work Phone: 05-11-2020 08:04-0500 Body mass index (BMI) [Ratio] 34.9 kg/m2 Dr. Theo Mcpherson Work Phone: [facility] Work Phone: 07-13-2016 15:25-0400 BMI (Body Mass Index) 36.61 kg/m2 Abiodun Parra MD [facility] Work Phone: 07-13-2016 15:25-0400 BP Diastolic 80 mm[Hg] Abiodun Parra MD [facility] Work Phone: 07-13-2016 15:25-0400 BP Systolic 120 mm[Hg] Abiodun Parra MD [facility] Work Phone: 07-13-2016 15:25-0400 Height 182.88 cm Abiodun Parra MD [facility] Work Phone: 07-13-2016 15:25-0400 Pulse (Heart Rate) 64 /min Abiodun Parra MD [facility] Work Phone: 07-13-2016 15:25-0400 Respiratory Rate 20 /min Abiodun Parra MD [facility] Work Phone: 07-13-2016 15:25-0400 Weight 122.47 kg Abiodun Parra MD [facility] Work Phone: 01-13-2016 13:19-0500 BSA (Body Surface Area) 2.39 m2 Abiodun Parra MD [facility] Work Phone: NEGATED: Highlighted [id number] 12:38-0400 Body height 184.15 cm Jeri Yadav COMBINATION WELDER APPRENTICE [facility] Work Phone: NEGATED: Highlighted [id number] 12:38-0400 Body height 184 cm Jeri Yadav [facility] Work Phone: NEGATED: Highlighted [id number] 12:38-0400 Body mass index (BMI) [Ratio] 34.1 kg/m2 Jeri Yadav [facility] Work Phone: NEGATED: Highlighted [id number] 12:38-0400 Body weight 115.21 kg Jeri Yadav COMBINATION WELDER APPRENTICE [facility] Work Phone: NEGATED: Highlighted [id number] 12:38-0400 Body weight 115 kg Jeri Yadav COMBINATION WELDER APPRENTICE [facility] Work Phone: NEGATED: Highlighted [id number] 08:04-0500 Body height 184.15 cm Wilma Gotti [facility] Work Phone: NEGATED: Highlighted [id number] 08:04-0500 Body height 184 cm Wilma Gotti [facility] Work Phone: NEGATED: Highlighted [id number] 08:04-0500 Body mass index (BMI) [Ratio] 34.1 kg/m2 Wilma Gotti [facility] Work Phone: NEGATED: Highlighted [id number] 08:04-0500 Body weight 115.21 kg Wilma Gotti [facility] Work Phone: NEGATED: Highlighted [id number] 08:04-0500 Body weight 115 kg Wilma Gotti LPN [facility] Work Phone: Encounters Encounter Date Encounter Type Care Provider Facility Start: 01-24-2024 End: 01-24-2024 ambulatory Theo López Roof PRINCIPAL ELECTRICAL ENGINEER Facility:[facility] [place] Start: 2023 End: 2023 ambulatory [facility] Facility:[facility] Start: 08-09-2023 End: 08-09-2023 ambulatory Chal Tessy Facility:[facility] [place] Start: 01-13-2023 Non-patient / Non-visit DO Jair Dubose Work Phone: [facility] Work Phone: Start: 01-12-2023 Non-patient / Non-visit DO Jair Soner Work Phone: [facility] Start: 01-12-2023 Non-patient / Non-visit DO Kri boogien Sedrick Work Phone: [facility] Work Phone: Start: 01-11-2023 End: 01-13-2023 Evaluation and management of inpatient DO Emi Sedrick Work Phone: [facility]-Progressive Care Unit Work Phone: Start: 10-27-2022 End: 10-27-2022 Patient encounter procedure DO Emi Dubose Work Phone: [facility] Work Phone: Start: 10-21-2022 Non-patient / Non-visit Dr. Gabbi Deleon Work Phone: [facility] Start: 10-20-2022 Non-patient / Non-visit Dr. Gabbi Deleon Work Phone: [facility] Start: 10-19-2022 End: 10-19-2022 Non-patient / Non-visit DO Emi Dubose Work Phone: [facility] Work Phone: Start: 10-19-2022 Non-patient / Non-visit Dr. Gabbi Deleon Work Phone: [facility] Start: 10-19-2022 End: 10-21-2022 Evaluation and management of inpatient [facility] Work Phone: Start: 10-19-2022 End: 10-21-[address] Dru Deleon Work Phone: [facility] Work Phone: Start: 07-28-2022 End: 07-28-[address] Dru Deleon Work Phone: [facility] Work Phone: Start: 01-06-2022 End: 01-06-2022 ambulatory [facility] Work Phone: Start: 01-06-2022 End: 01-06-2022 Patient encounter procedure [facility] Start: 07-06-2021 Non-patient / Non-visit Dr. Lexi Mcpherson Work Phone: [facility] Start: 07-06-2021 End: 07-06-[address] [facility] Start: 06-01-2021 Non-patient / Non-visit Dr. Lexi Mcpherson Work Phone: [facility] Start: 06-01-2021 End: 06-01-[address] [facility] Start: 05-12-2021 End: 05-12-[address] Theo Mcpherson Work Phone: [facility] Start: 04-04-2021 End: 04-04-[address] Theo Mcpherson Work Phone: [facility] Start: 02-23-2021 End: 02-23-2021 Emergency department patient visit Dr. Theo Mcpherson Work Phone: [facility]-Emergency Department Procedures Date Procedure Procedure Detail Performing Clinician Start: 01-11-2023 Nucleic acid assay DO K nate Sedrick Work Phone: Start: 01-11-2023 Plain chest X-ray DO Kr antelmo Sedrick Work Phone: Start: 10-20-[address] Dru Deleon Work Phone: Start: 10-20-2022 Fluoroscopic guidance Isma Deleon Work Phone: Start: 10-20-2022 Total cholecystectom y and exploration of common bile duct Dr. Dru Deleon Work Phone: Start: 10-20-2022 Plain chest X-ray Dr. Halima Deleon Work Phone: Start: 10-19-2022 US scan of gallbladder Dr. Dru Deleon Work Phone: Start: 06-01-2021 Radionuclide imaging of perfusion of myocardium under exercise stress Dr. Theo Mcpherson Work Phone: Start: 05-24-2021 End: 05-24-2021 BP scrn no perf at interval Yadira Rand MD Work Phone: Start: 05-24-2021 End: 05-24-2021 Calc BMI out nrm abdias nof/u Yadira Rand MD Work Phone: Start: 05-24-2021 End: 05-24-2021 Current tobacco non-user cad cap copd pv dm Yadira Rand MD Work Phone: Start: 05-24-2021 End: 05-24-2021 Docd contact that fx existed & pt tsted/txd op Yadira Rand MD Work Phone: Start: 05-24-2021 End: 05-24-2021 Docrev cur meds by kate Rand MD Work Phone: Start: 05-24-2021 End: 05-24-2021 Pain neg no plan Yadira Rand MD Work Phone: Start: 05-24-2021 End: 05-24-2021 Patient encounter procedure Yadira Rand MD Work Phone: Start: 04-19-2021 End: 04-20-2021 BP scrn no perf at interval Talya Camposr PA-C Work Phone: Start: 04-19-2021 End: 04-20-2021 Calc BMI out nrm abdias nof/u Talya Murdockucar PA-C Work Phone: Start: 04-19-2021 End: 04-20-2021 Current tobacco non-user cad cap copd pv dm Talya Kennedy Klucar PA-C Work Phone: Start: 04-19-2021 End: 04-20-2021 Docd contact that fx existed & pt tsted/txd op Talya Murdockucar PA-C Work Phone: Start: 04-19-2021 End: 04-20-2021 Docrev cur meds by kate Murdockucar PA-C Work Phone: Start: 04-19-2021 End: 04-20-2021 Pain neg no plan Talya Camposr PA-C Work Phone: Start: 04-19-2021 End: 04-20-2021 Patient encounter procedure Talya Camposr PA-C Work Phone: Start: 02-23-2021 Plain x-ray of hand Dr. Theo Mcpherson Work Phone: Start: 08-07-2016 End: 01-04-2017 *Hepatic Function Panel [place] [facility] M D Start: 08-07-2016 End: 01-04-2017 Lipid 1996 panel - Serum or Plasma Abiodun Parra MD Start: 07-13-2016 End: 07-13-2016 MADONNA Parra MD Start: 07-13-2016 End: 07-13-2016 Follow Up Appt 6 months Cj Zaidi Start: 01-13-2016 End: 02-07-2016 *BMP Abiodun Parra MD Start: 01-13-2016 End: 02-07-2016 *Hepatic Function Panel Cj Zaidi Start: 01-13-2016 End: 01-13-2016 Follow Up Appt 6 months Cj Zaidi Start: 01-13-2016 End: 02-07-2016 Lipid 1996 panel - Serum or Plasma Abiodun Parra MD Start: 01-13-2016 End: 01-13-2016 MMM Abiodun Parra MD Start: 04-02-2015 End: 01-13-2016 *Hepatic Function Panel Cj Zaidi Start: 04-02-2015 End: 01-13-2016 Lipid 1996 panel - Serum or Plasma Abiodun Parra MD Start: 01-06-2015 End: 01-06-2015 GEAR GRINDER Yamileth Burnham PA-C Work Phone: Start: 01-06-2015 End: 01-07-2015 Documentation of current medications Yamileth Burnham PA-C Work Phone: Start: 01-06-2015 End: 01-06-2015 Ecg routine ecg w/least 12 lds w/i&r Yamileth Burnham PA-C Work Phone: Start: 01-06-2015 End: 01-06-2015 Follow Up Appt 6 months Yamileth Burnham PA-C Work Phone: Start: 12-31-2014 End: 12-31-2014 *Hepatic Function Panel Cj Zaidi Start: 12-31-2014 End: 12-31-2014 Lipid 1996 panel - Serum or Plasma Abiodun Parra MD Start: 09-22-2014 End: 10-22-2014 *Hepatic Function Panel Cj Zaidi Start: 09-22-2014 End: 10-22-2014 Lipid 1996 panel - Serum or Plasma Abiodun Parra MD Start: 04-21-2014 End: 04-22-2014 Documentation of current medications Abiodun Parra MD Start: 04-21-2014 End: 04-21-2014 Follow Up Appt 6 months Cj Zaidi Start: 04-21-2014 End: 04-21-2014 MMM Abiodun Parra MD Start: 03-24-2014 End: 03-24-2014 *Hepatic Function Panel Cj Zaidi Start: 03-24-2014 End: 03-24-2014 Lipid Samara panel - Serum or Plasma Abiodun Parra MD Start: 10-15-2013 End: 10-15-2013 GEAR GRINDER Yamileth Burnham PA-C Work Phone: Start: 10-15-2013 End: 10-15-2013 Follow Up Appt 6 months Yamileth Burnham PA-C Work Phone: Start: 10-03-2013 End: 10-09-2013 *Hepatic Function Panel Cj Zaidi Start: 10-03-2013 End: 10-09-2013 Lipid 1996 panel - Serum or Plasma Abiodun Parra MD Start: 04-15-2013 End: 10-01-2013 Follow Up Appt 6 months Cj Zaidi Start: 04-15-2013 End: 10-01-2013 MMM Abiodun Parra MD Start: 04-08-2013 End: 04-09-2013 *Hepatic Function Panel Cj Zaidi Start: 04-08-2013 End: 04-09-2013 Lipid 1996 panel - Serum or Plasma Abiodun Parra MD Start: 10-17-2012 End: 10-17-2012 GEAR GRINDER Abiodun Parra MD Start: 10-17-2012 End: 04-08-2013 Echocardiography Abiodun Parra MD Start: 10-17-2012 End: 10-17-2012 Follow Up Appt 6 months Cj Zaidi Start: 10-17-2012 End: 04-08-2013 Nuclear stress test -exercise Abiodun Parra MD Start: 07-24-2012 End: 10-08-2012 *Hepatic Function Panel David Trevino MD Start: 07-24-2012 End: 10-08-2012 Lipid 1996 panel - Serum or Plasma David Trevino MD Start: 04-25-2012 End: 04-25-2012 Follow Up Appt 6 months David Trevino MD Start: 01-10-2012 End: 04-25-2012 *Hepatic Function Panel David Trevino MD Start: 10-19-2011 End: 10-19-2011 Follow Up Appt 6 months David Trevino MD Start: 05-10-2011 End: 05-10-2011 *Hepatic Function Panel David Trevino MD Start: 05-10-2011 End: 05-10-2011 Lipid 1996 panel - Serum or Plasma David Trevino MD Start: 05-04-2011 End: 05-10-2011 *BMP David Trevino MD Start: 04-06-2011 End: 04-19-2011 *BMP David Trevino MD Start: 04-06-2011 End: 04-06-2011 Follow Up Appt 6 months David Trevino MD Start: 04-06-2011 End: 04-19-2011 Magnesium [Mass/volume] in Serum or Plasma David Trevino MD Start: 10-12-2009 History of coronary artery bypass grafting H/O coronary artery bypass surgery Dr. Theo Mcpherson Work Phone: History of cholecystectomy Status post laparoscopic cholecystectomy Dr. Dru Deleon Work Phone: NEGATED: Highlighted rowStart: 05-24-2021 End: 05-24-2021 Documentation of current medications Jeri Yadav LPN NEGATED: Highlighted rowStart: 04-19-2021 End: 04-19-2021 Documentation of current medications Wilma Gotti COMBINATION WELDER APPRENTICE Plan of Treatment Date Care Activity Detail Author Start: 01-19-2023 Blood chemistry [facility] Start: 01-18-2023 Blood chemistry [facility] Start: 01-17-2023 Blood chemistry [facility] Start: 01-16-2023 Blood chemistry [facility] Start: 01-13-2023 Patient discharge [facility] Start: 01-12-2023 Patient referral [facility] Work Phone: Start: 01-12-2023 Partial thromboplastin time, activated [facility] Start: 01-12-2023 Cardiac monitoring [facility] Start: 01-12-2023 Cardiac rehabilitation - phase 1 [facility] Start: 01-12-2023 Cardiac rehabilitation - phase 2 [facility] Start: 01-12-2023 Notification of physician [facility] Start: 01-12-2023 Oxygen therapy [facility] Start: 01-12-2023 Patient discharge [facility] Start: 01-12-2023 Systemic arterial pressure monitoring [facility] Start: 01-12-2023 Taking patient vital signs [facility] Start: 01-12-2023 Vascular disease risk assessment [facility] Start: 01-12-2023 Vital signs measurements [facility] Start: 01-12-2023 [facility] Start: 01-11-2023 Assessment of risk of venous thromboembolism [facility] Start: 01-11-2023 Care regimes management [facility] Start: 01-11-2023 Insertion of catheter into peripheral vein [facility] Start: 01-11-2023 Measuring intake and output [facility] Start: 01-11-2023 Notification of physician [facility] Start: 01-11-2023 Providing care according to standard [facility] Start: 01-11-2023 Referral to diagnostic radiologist [facility] Start: 01-11-2023 [facility] Start: 01-11-2023 Following clinical pathway protocol [facility] Start: 01-11-2023 Verification routine [facility] Start: 01-11-2023 Admission procedure [facility] Start: 01-11-2023 Hospital admission, emergency, from emergency room, medical nature [facility] Start: 01-11-2023 Respiratory Panel (PCR) Respiratory Panel (PCR) [facility] Start: 01-11-2023 [facility] Start: 10-21-2022 Patient discharge [facility] Start: 10-20-2022 Preoperative care [facility] Start: 10-19-2022 Application of intermittent pneumatic compression device [facility] Start: 10-19-2022 Anes intraperitoneal upper abdomen w/laps nos ANESTH SURG UPPER ABDOMEN [facility] Start: 08-17-2023 Laps surg cholecystectomy w/cholangiography LAPARO CHOLECYSTECTOMY/GRAPH [facility] Start: 10-19-2022 Catheterization of vein [facility] Start: 10-19-2022 Admission procedure [facility] Start: 10-19-2022 Ambulation without limitation [facility] Start: 10-19-2022 Measuring intake and output [facility] Start: 10-19-2022 Assessment of risk of venous thromboembolism [facility] Start: 10-19-2022 Insertion of catheter into peripheral vein [facility] Start: 10-19-2022 Providing care according to standard [facility] Start: 10-19-2022 [facility] Start: 10-19-2022 Following clinical pathway protocol [facility] Start: 05-24-2021 End: 05-24-2021 Patient encounter procedure Appointment [facility] Work Phone: Start: 05-24-2021 End: 05-24-2021 Radex hand minimum 3 views XR HAND 3+ VWS-RT [facility] Work Phone: Start: 04-26-2021 End: 04-26-2021 Patient encounter procedure Appointment [facility] Work Phone: Start: 04-19-2021 End: 04-19-2021 Radex hand minimum 3 views XR HAND 3+ VWS-RT [facility] Work Phone: Start: 02-23-2021 Smpl repair scalp/neck/ax/genit/trunk 2.6-7.5cm RPR S/N/AX/GEN/TRNK2.6-7.5CM [facility] Work Phone: Start: 07-04-2017 End: 01-05-2017 *Hepatic Function Panel *Hepatic Function Panel [facility] Work Phone: Start: 07-04-2017 End: 01-05-2017 Lipid panel [AGGREGATE] *Lipid Profile CC PCP [facility] Work Phone: Start: 01-09-2017 End: 01-09-2017 Appointment Appointment [facility] Work Phone: Start: 08-07-2016 End: 01-04-2017 *Hepatic Function Panel *Hepatic Function Panel [facility] Work Phone: Start: 08-07-2016 End: 01-04-2017 Lipid panel [AGGREGATE] *Lipid Profile CC PCP [facility] Work Phone: Start: 07-13-2016 End: 07-13-2016 GEAR GRINDER GEAR GRINDER [facility] Work Phone: Start: 07-13-2016 End: 07-13-2016 Follow Up Appt 6 months Follow Up Appt 6 months [facility] Work Phone: Start: 07-13-2016 End: 07-14-2016 Nuclear stress test -exercise Nuclear stress test -exercise [facility] Work Phone: Start: 01-13-2016 End: 02-07-2016 *BMP *BMP [facility] Work Phone: Start: 01-13-2016 End: 02-07-2016 *Hepatic Function Panel *Hepatic Function Panel [facility] Work Phone: Start: 01-13-2016 End: 01-13-2016 Follow Up Appt 6 months Follow Up Appt 6 months [facility] Work Phone: Start: 01-13-2016 End: 02-07-2016 Lipid panel [AGGREGATE] *Lipid Profile CC PCP [facility] Work Phone: Start: 01-13-2016 End: 01-13-2016 MMM MMM [facility] Work Phone: Start: 04-02-2015 End: 01-13-2016 *Hepatic Function Panel *Hepatic Function Panel [facility] Work Phone: Start: 04-02-2015 End: 01-13-2016 Lipid panel [AGGREGATE] *Lipid Profile CC PCP [facility] Work Phone: Start: 01-21-2015 End: 12-31-2014 *Hepatic Function Panel *Hepatic Function Panel [facility] Work Phone: Start: 01-21-2015 End: 12-31-2014 Lipid panel [AGGREGATE] *Lipid Profile CC PCP [facility] Work Phone: Start: 01-06-2015 End: 01-06-2015 GEAR GRINDER GEAR GRINDER [facility] Work Phone: Start: 01-06-2015 End: 01-06-2015 Ecg routine ecg w/least 12 lds w/i&r EKG (In office) [facility] Work Phone: Start: 01-06-2015 End: 01-06-2015 Follow Up Appt 6 months Follow Up Appt 6 months [facility] Work Phone: Start: 09-22-2014 End: 10-22-2014 *Hepatic Function Panel *Hepatic Function Panel [facility] Work Phone: Start: 09-22-2014 End: 10-22-2014 Lipid panel [AGGREGATE] *Lipid Profile CC PCP [facility] Work Phone: Start: 04-21-2014 End: 04-21-2014 Follow Up Appt 6 months Follow Up Appt 6 months [facility] Work Phone: Start: 04-21-2014 End: 04-21-2014 MMM MMM [facility] Work Phone: Start: 03-24-2014 End: 03-24-2014 *Hepatic Function Panel *Hepatic Function Panel [facility] Work Phone: Start: 03-24-2014 End: 03-24-2014 Lipid panel [AGGREGATE] *Lipid Profile CC PCP [facility] Work Phone: Start: 10-15-2013 End: 10-15-2013 GEAR GRINDER GEAR GRINDER [facility] Work Phone: Start: 10-15-2013 End: 10-15-2013 Follow Up Appt 6 months Follow Up Appt 6 months [facility] Work Phone: Start: 10-03-2013 End: 10-09-2013 *Hepatic Function Panel *Hepatic Function Panel [facility] Work Phone: Start: 10-03-2013 End: 10-09-2013 Lipid panel [AGGREGATE] *Lipid Profile CC PCP [facility] Work Phone: Start: 04-15-2013 End: 10-01-2013 Follow Up Appt 6 months Follow Up Appt 6 months [facility] Work Phone: Start: 04-15-2013 End: 10-01-2013 MMM MMM [facility] Work Phone: Start: 04-08-2013 End: 04-09-2013 *Hepatic Function Panel *Hepatic Function Panel [facility] Work Phone: Start: 04-08-2013 End: 04-09-2013 Lipid panel [AGGREGATE] *Lipid Profile CC PCP [facility] Work Phone: Start: 10-17-2012 End: 10-17-2012 GEAR GRINDER GEAR GRINDER [facility] Work Phone: Start: 10-17-2012 End: 04-08-2013 Echocardiography Echocardiogram (complete) [facility] Work Phone: Start: 10-17-2012 End: 10-17-2012 Follow Up Appt 6 months Follow Up Appt 6 months [facility] Work Phone: Start: 10-17-2012 End: 04-08-2013 Nuclear stress test -exercise Nuclear stress test -exercise [facility] Work Phone: Start: 07-24-2012 End: 10-08-2012 *Hepatic Function Panel *Hepatic Function Panel [facility] Work Phone: Start: 07-24-2012 End: 10-08-2012 Lipid panel [AGGREGATE] *Lipid Profile [facility] Work Phone: Start: 04-25-2012 End: 04-25-2012 Follow Up Appt 6 months Follow Up Appt 6 months [facility] Work Phone: Start: 01-10-2012 End: 04-25-2012 *Hepatic Function Panel *Hepatic Function Panel [facility] Work Phone: Start: 10-19-2011 End: 10-19-2011 Follow Up Appt 6 months Follow Up Appt 6 months [facility] Work Phone: Start: 07-05-2011 End: 05-10-2011 *Hepatic Function Panel *Hepatic Function Panel [facility] Work Phone: Start: 07-05-2011 End: 05-10-2011 Lipid panel [AGGREGATE] *Lipid Profile [facility] Work Phone: Start: 05-04-2011 End: 05-10-2011 *BMP *BMP [facility] Work Phone: Start: 04-06-2011 End: 04-19-2011 *BMP *BMP [facility] Work Phone: Start: 04-06-2011 End: 04-06-2011 Follow Up Appt 6 months Follow Up Appt 6 months [facility] Work Phone: Start: 04-06-2011 End: 04-19-2011 Magnesium *Magnesium [facility] Work Phone: Lipid 1996 panel - S lina or Plasma [facility] Patient Education [facility] Work Phone: Patient referral [facility] Work Phone: Respiratory pathogen s DNA and RNA panel - Respiratory specimen by LILLIE with probe detection [facility] Payers Date Payer Category Payer Self-pay [id number] 2023 Unknown [id number] Private Health Insurance [id number] Unknown [id number] Unknown [id number] Unknown [id number] Social History Date Type Detail Facility Start: 05-12-2021 End: 01-11-2023 Assertion Unknown if ever smoked [facility] Work Phone: Start: 1960 Sex Assigned At Male W [facility] Medical Equipment Procedure Code Equipment Code Equipment Origin al Text Equipment Identifier Dates Total cholecystectomy with exploration of common bile duct CLIP,[place] MED WECK FDA Start: 10-20-2022 Total cholecystectomy with exploration of common bile duct CLIP,[place] MED WECK FDA Start: 10-20-2022 Total cholecystectomy with exploration of common bile duct Plant polysaccharide haemostatic agent, bioabsorbable ()[id number] tdbdjs FDA Start: 10-20-2022 Total cholecystectomy with exploration of common bile duct CLIP,HEMOLOBakers ShoesCK FDA Start: 10-20-2022 Total cholecystectomy with exploration of common bile duct CLIP,HEMOLOCK MED [employer]In[employer]CK FDA Start: 10-20-2022 Total cholecystectomy with exploration of common bile duct CLIP,HEMOLOCK MED [employer] FDA Start: 10-20-2022 Total cholecystectomy with exploration of common bile duct CLIP,HEMOLOBakers ShoesCK FDA Start: 10-20-2022 Drug-eluting cor onary artery stent, mex-omsvodefglzut-fsk ymer-coated ()[id number] FDA Start: 01-12-2023 ([id number]) Drug-eluting cor onary artery stent, bioabsorbable-polymer -coated ()[id number] FDA Start: 01-12-2023 ([id number]) Drug-eluting cor onary artery stent, bioabsorbable-polymer -coated ()[id number] FDA Start: 01-12-2023 Femoral vessel s uture implantation set ()[id number] FDA Start: 01-12-2023 Goals Date Patient Goal Desired Activity /State Functional Status Date Assessment Result Facility 01-13-2023 Functional status [facility] Work Phone: 10-21-2022 Functional status [facility] Work Phone: Mental Status Date Assessment Result Facility 01-13-2023 Cognitive function Voice/Name [facility] Work Phone: 01-11-2023 Cognitive function Voice/Name [facility] Work Phone: 10-21-2022 Cognitive function Level Of Cons ciousness Awake;Alert;Appropriate [facility] Work Phone: 10-21-2022 Cognitive function Voice/Name [facility] Work Phone: Clinical Notes 10-12-2009 to 01-12-2023 Note Date & Type Note Facility 01-12-2023 Consult note Note Date/Time January 12, 2023 4:53pm [facility] Medical Records Department [address] [place], [place] [address] [address] Consultation - Cardiology 01/12/23 1645 MR#: [id number] Acct: [id number] Name: NEEL BENJAMIN Rep #:[id number] : 1960 62 From: Marvin degroot MD PCP: Emi Dubose, DO Status:ADM I N Location: [place] [address] Assessment & Plan Assessment/Plan (1) Non-STEMI (non-ST elevated myocardial infarction): PLAN: Treated with drug-eluting stent to SVG to OM and SVG to RPDA. We will keep the patient on aspirin, Brilinta, beta-hernan. He is allergic to Lipitor. We can try Crestor. (2) Stented coronary artery: HPI Consult Data Date of Consult: 01/12/23 HPI Narrative Reason for Consultation: Non-STEMI HPI Narrative: NEEL BENJAMIN, is a 62 M who presents with chest pain and was found to have non-STEMI. He underwent coronary angiography which revealed 99% stenosis in theSVG to obtuse marginal and also 95 to 99% stenosis in the SVG to RPDA both of which were treated with drug-eluting stents. 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 Chest pain Coronary artery disease Diabetes Essential (primary) hypertension HLD (hyperlipidemia) Hypertension Incomplete right bundle branch block Kidney stones Myocardial infarct Non-smoker Obesity Type 2 diabetes mellitus Home Medications sitagliptin phosphate 50 mg-metformin 1,000 mg tablet 1 tab PO BID 07/31/17 [History Last Taken Unknown] escitalopram oxalate 10 mg tablet 10 mg PO DAILY 90 days ##90 08/03/17 [History Last Taken Unknown] montelukast 10 mg tablet 10 mg PO DAILY 90 days ##90 08/03/17 [History Last Taken Unknown] empagliflozin 25 mg tablet (Jardiance) 25 mg PO DAILY 05/07/18 [History Last Taken Unknown] aspirin 81 mg tablet,delayed release (Adult Aspirin Regimen) 162 mg PO DAILY 05/12/21 [History Last Taken Unknown] hydrochlorothiazide 25 mg tablet 25 mg PO QDAY #90 tabs 06/16/22 [Rx Last Taken Unknown] metoprolol succinate 50 mg tablet,extended release 24 hr 50 mg PO QDAY #90 tabs 06/16/22 [Rx Last Taken Unknown] ramipril 5 mg capsule 5 mg PO BID #180 caps 06/16/22 [Rx Last Taken Unknown] glimepiride 4 mg tablet 2 mg PO BID 07/28/22 [History Last Taken Unknown] pravastatin 20 mg tablet 20 mg PO QDAY #90 tabs 07/28/22 [Rx Last Taken Unknown] cholecalciferol (vitamin D3) 50 mcg (2,000 unit) tablet (D3 DOTS) 50 mcg PO DAILY 10/19/22 [History Last Taken Unknown] meclizine 25 mg tablet 25 mg PO DAILY 10/19/22 [History Last Taken Unknown] cholestyramine-aspartame 4 gram oral powder for susp in a packet 1 ea PO DAILY 01/11/23 [History Last Taken Unknown] Allergy/AdvReac Type Severity Reaction Status Date / Time atorvastatin [From Lipitor] AdvReac Severe Myalgias Verified 01/11/23 12:59 Penicillins AdvReac Severe Hives Verified 01/11/23 12:59 Family History Father Heart disease Myocardial infarction Mother Breast cancer Colon cancer Brother Hypertension Brother Diabetes Surgical History (Updated 01/12/23 @ 13:57 by Cha West) H/O coronary artery bypass surgery (10/12/09) History of cholecystectomy History of coronary artery stent placement History of laparoscopic cholecystectomy History of open reduction and internal fixation (ORIF) procedure (2020) Stented coronary artery (01/12/23) Social History Smoking Status: Never smoker alcohol intake: never caffeine: Yes Type: tea Number of servings: 1 what type of physical activity do you participate in: none Physical Exam Const alert and oriented x3 HEENT normocephalic Eyes no scleral icterus Resp normal respiratory effort Psych mental status grossly normal Risk Stratification Risk Stratification Applicable: No Charges/Coding Visit Charges Inpatient E&M: 82292 Init Hosp L2 Objective Data Vital Signs: Vital Signs Temp Pulse Resp BP Pulse Ox O2 Del Method 97.3 F L 67 18 119/78 96 Room Air 01/12/23 16:05 01/12/23 16:05 01/12/23 16:05 01/12/23 16:05 01/12/23 16:05 01/12/23 16:05 Oxygen Delivery Method Room Air Weight: 246 lb 7.629 oz Body Mass Index (BMI) 33.4 Intake & Output: Intake and Output for Last 24 Hours 01/10/23 01/11/23 01/12/23 23:59 23:59 23:59 Intake Total 997.67 / 1247.67 395.2 / 395.2 Balance 997.67 / 1247.67 395.2 / 395.2 Lab / Micro Data 01/12/23 05:10 01/12/23 05:10 Labs: Laboratory Results - last 24 hr 01/11/23 17:53: POC Glucose 96 01/11/23 19:14: Troponin I High Sens 9292 H* 01/11/23 20:39: POC Glucose 171 H 01/11/23 21:10: APTT 30.4 01/12/23 05:10: WBC 9.6, RBC 5.27, Hgb 14.9, Hct 46.3, MCV 87.9, MCH 28.3, MCHC 32.2, RDW Std Deviation 46.9 H, RDW Coeff of Sumit 14.6, Plt Count 198, MPV 11.6, Immature Gran % (Auto) 0.500, Neut % (Auto) 70.7 H, Lymph % (Auto) 16.3 L, Warren % (Auto) 9.8, Eos % (Auto) 2.4, Baso % (Auto) 0.3, Absolute Neuts (auto) 6.7, Absolute Lymphs (auto) 1.56, Nucleated RBC % 0, APTT 31.9, Sodium 135 L, Potassium 4.3, Chloride 104, Carbon Dioxide 26.0, Anion Gap 5, BUN 24 H, Creatinine 1.20, Estim Creat Clear Calc 68.26, Est GFR (MDRD) Af Amer 78, Est GFR (MDRD) Non-Af 65, BUN/Creatinine Ratio 20.0, Glucose 163 H, Calcium 9.5 01/12/23 05:45: POC Glucose 150 H Micro: Microbiology 01/11/23 15:39 Mucosa - Nasopharyngeal Respiratory Panel (PCR) - Final Cardiology Labs/Tests 01/11/23 21:10: APTT 30.4 01/12/23 05:10: WBC 9.6, RBC 5.27, Hgb 14.9, Hct 46.3, MCV 87.9, MCH 28.3, MCHC 32.2, Plt Count 198, MPV 11.6, Immature Gran % (Auto) 0.500, Neut % (Auto) 70.7 H, Lymph % (Auto) 16.3 L, Warren % (Auto) 9.8, Eos % (Auto) 2.4, Baso % (Auto) 0.3, Absolute Neuts (auto) 6.7, Nucleated RBC % 0, APTT 31.9, Sodium 135 L, Potassium 4.3, Chloride 104, Carbon Dioxide 26.0, Anion Gap 5, BUN 24 H, Creatinine 1.20, Est GFR (MDRD) Af Amer 78, Est GFR (MDRD) Non-Af 65, BUN/Creatinine Ratio 20.0, Glucose 163 H, Calcium 9.5 Rhythm: EKG: ECHO: Stress Test: Cardiac Cath: PCI: CT Surgery: Holter monitor: EPS: PPM: CXR: Chest CT Scan: 11/10/23 1652 <Electronically signed by Marvin Kirkland MD> Cosigner Signature (if applicable): CC: Dr. Marvin Kirkland MD; Dr. Mick De Leon MD; Emi Dubose DO~ Signed [facility] Work Phone: 1(553) 146-679811-10-2023 Evaluation note* Diagnosis Onset Date Resolution Status Acute calculous cholecystitis resolved Status post laparoscopic cholecystectomy acute Non-STEMI (non-ST elevated m yocardial infarction) acute Stented coronary artery January 12, 2023 acute [facility] Work Phone: 1(384) 591-677411-10-2023 Progress note Author Lois Hernandes [facility] January 12, 2023 9:51am Note Date/Time January 12, 2023 7:26am [facility] Medical Records Department [address] [place] [address] Progress Note - Hospitalist 01/12/23723 MR#: [id number] Acct: [id number] Name: NEEL BENJAMIN Rep #:[id number] : 1960 62 From: Lois Hernandes MD PCP: Emi Dubose DO Status:ADM I N Location: [place] [address] Reason for Visit Reason for Visit: Diagnoses Non-ST elevation (NSTEMI) myocardial infarction (01/11/23) Subjective Subjective Note chest pain at this time, not feeling short of breath, awaiting cardiology eval Objective Data Objective Data Vital Signs: Vital Signs Temp Pulse Resp BP Pulse Ox O2 Del Method 97.2 F L 65 16 106/64 98 Room Air 01/12/23 04:30 01/12/23 04:30 01/12/23 04:30 01/12/23 04:30 01/12/23 04:30 01/12/23 04:30 Oxygen Delivery Method Room Air Weight: 111.8 kg Body Mass Index (BMI) 33.4 Intake & Output: Intake and Output for Last 24 Hours 01/10/23 01/11/23 01/12/23 23:59 23:59 23:59 Intake Total 997.67 / 1247.67 336.4 / 336.4 Balance 997.67 / 1247.67 336.4 / 336.4 Lab / Micro Data 01/12/23 05:10 01/12/23 05:10 Labs: Laboratory Results - last 24 hr 01/11/23 13:20: WBC 14.4 H, RBC 5.44, Hgb 15.5, Hct 47.2, MCV 86.8, MCH 28.5, MCHC 32.8, RDW Std Deviation 46.4 H, RDW Coeff of Sumit 14.7 H, Plt Count 228, MPV11.9, Immature Gran % (Auto) 0.600, Neut % (Auto) 78.9 H, Lymph % (Auto) 11.1 L,Warren % (Auto) 7.3, Eos % (Auto) 1.8, Baso % (Auto) 0.3, Absolute Neuts (auto) 11.4 H, Absolute Lymphs (auto) 1.61, Nucleated RBC % 0, PT 13.2, INR 1.0, APTT 28.7, Sodium 136, Potassium 4.1, Chloride 105, Carbon Dioxide 24.0, Anion Gap 7,BUN 28 H, Creatinine 1.32 H, Estim Creat Clear Calc 62.05, Est GFR (MDRD) Af Amer 70, Est GFR (MDRD) Non-Af 58 L, BUN/Creatinine Ratio 21.2 H, Glucose 138 H,Calcium 9.6, Magnesium 1.9, Troponin I High Sens 2594 H* 01/11/23 15:55: Troponin I High Sens 5588 H* 01/11/23 17:53: POC Glucose 96 01/11/23 19:14: Troponin I High Sens 9292 H* 01/11/23 20:39: POC Glucose 171 H 01/11/23 21:10: APTT 30.4 01/12/23 05:10: WBC 9.6, RBC 5.27, Hgb 14.9, Hct 46.3, MCV 87.9, MCH 28.3, MCHC 32.2, RDW Std Deviation 46.9 H, RDW Coeff of Sumit 14.6, Plt Count 198, MPV 11.6, Immature Gran % (Auto) 0.500, Neut % (Auto) 70.7 H, Lymph % (Auto) 16.3 L, Warren % (Auto) 9.8, Eos % (Auto) 2.4, Baso % (Auto) 0.3, Absolute Neuts (auto) 6.7, Absolute Lymphs (auto) 1.56, Nucleated RBC % 0, APTT 31.9, Sodium 135 L, Potassium 4.3, Chloride 104, Carbon Dioxide 26.0, Anion Gap 5, BUN 24 H, Creatinine 1.20, Estim Creat Clear Calc 68.26, Est GFR (MDRD) Af Amer 78, Est GFR (MDRD) Non-Af 65, BUN/Creatinine Ratio 20.0, Glucose 163 H, Calcium 9.5 01/12/23 05:45: POC Glucose 150 H Micro: Microbiology 01/11/23 15:39 Mucosa - Nasopharyngeal Respiratory Panel (PCR) - Final Radiography Diagnostic Testing: Radiology Impression Chest X-Ray 01/11/23 13:45 IMPRESSION: Cardiomegaly. The lungs are clear. Electronically Signed: Nile Batista MD at 14:00 EST , Physical Exam Narrative General: Alert, oriented, no apparent distress HEENT: Atraumatic, normocephalic Eyes: Anicteric, normal conjunctiva, extraocular movements grossly intact Neck: Supple Respiratory: Clear to auscultation bilaterally, normal respiratory effort Cardiovascular: Regular rate and rhythm GI: Soft, nontender, nondistended Extremities: No edema Musculoskeletal: Moving all extremities Neuro: No overt focal neurological deficits Skin: No rashes appreciated Psych: Cooperative Assessment & Plan Assessment/Plan (1) Non-STEMI (non-ST elevated myocardial infarction): PLAN: Plan 1. Non-STEMI/CAD status post CABG/HTN/HLD ? Presenting today with chest pain and elevated troponins to 2500 ? We will serial troponins ? Continue with heparin drip ? We will consult cardiology for heart cath in the morning ? Can resume his home blood pressure medications and his cholesterol medications -01/12: We will make patient n.p.o. in the event he has heart cath, troponins 2500 and continue to elevate to over 9000. Cardiology consult 2. DM 2 ? We will hold his home glimepiride as well as his Sitagliptin/metformin combo pill, can continue with his Jardiance ? Accu-Cheks ACHS ? Sliding scale insulin ? We will monitor and make adjustments as necessary -01/12: Continue present regimen DVT: Heparin drip Time spent in the patient's overall evaluation,decision-making process, review of diagnostic data, adjustment of management, discussion with other providers, nursing nursing and ancillary staff involved in patient's care documentation, 35minutes Charges/Coding Visit Charges Inpatient E&M: 89916 Subs Hosp L2 01/12/23 0951 <Electronically signed by Lois Hernandes MD> Cosigner Signature (if applicable): CC: ~ Signed [facility] Work Phone: 1(324) 854-242611-09-2023 History and physical note Author Mick De Leon [facility] January 11, 2023 7:43pm Note Date/Time January 11, 2023 2 :24pm [facility] Medical Records Department [address] [place] [address] H&P Exam - Hospitalist 01/11/23 1424 MR#: [id number] Acct: [id number] Name: NEEL BENJAMIN Rep #:[id number] : 1960 62 From: Mick rooney MD PCP: Emi Dubose, DO Status:ADM I N Location: [place] [address] HPI - General General Date of Admission: 01/11/23 HPI Narrative NEEL BENJAMIN, is a 62 M who presents to the hospital with chest pain. Started last night before bed and it lasted for about 30 minutes at which point he took 2 aspirin and it seemed to go away. This morning when he woke up he developed chest pain again and he took another 2 aspirin and it resolved after about an hour. He presented to the ED where he was found to have a troponin of over 2500 but currently denies any chest pain. He noticed that during his episodes of chest pain that he felt like his heart was racing, current heart rate in the ER today is 68 bpm. He does have a history of coronary artery disease and had a CABG in 2009 but denies any stents. Of note he does have a leukocytosis to 14.4, he denies any fevers or chills and no sick contacts. Chest x-ray was unremarkable and he is denying any urinary symptoms, will obtainrespiratory panel. [facility] Medical History (Updated 01/11/23 @ 17:03 by Haylie Benjamin) Acute calculous cholecystitis Atherosclerotic heart disease of agdaagux coronary artery without angina pectoris Chest pain Coronary artery disease Diabetes Essential (primary) hypertension HLD (hyperlipidemia) Hypertension Incomplete right bundle branch block Kidney stones Myocardial infarct Non-smoker Obesity Type 2 diabetes mellitus Home Medications sitagliptin phosphate 50 mg-metformin 1,000 mg tablet 1 tab PO BID 07/31/17 [History Last Taken Unknown] escitalopram oxalate 10 mg tablet 10 mg PO DAILY 90 days ##90 08/03/17 [History Last Taken Unknown] montelukast 10 mg tablet 10 mg PO DAILY 90 days ##90 08/03/17 [History Last Taken Unknown] empagliflozin 25 mg tablet (Jardiance) 25 mg PO DAILY 05/07/18 [History Last Taken Unknown] aspirin 81 mg tablet,delayed release (Adult Aspirin Regimen) 162 mg PO DAILY 05/12/21 [History Last Taken Unknown] hydrochlorothiazide 25 mg tablet 25 mg PO QDAY #90 tabs 06/16/22 [Rx Last Taken Unknown] metoprolol succinate 50 mg tablet,extended release 24 hr 50 mg PO QDAY #90 tabs 06/16/22 [Rx Last Taken Unknown] ramipril 5 mg capsule 5 mg PO BID #180 caps 06/16/22 [Rx Last Taken Unknown] glimepiride 4 mg tablet 2 mg PO BID 07/28/22 [History Last Taken Unknown] pravastatin 20 mg tablet 20 mg PO QDAY #90 tabs 07/28/22 [Rx Last Taken Unknown] cholecalciferol (vitamin D3) 50 mcg (2,000 unit) tablet (D3 DOTS) 50 mcg PO DAILY 10/19/22 [History Last Taken Unknown] meclizine 25 mg tablet 25 mg PO DAILY 10/19/22 [History Last Taken Unknown] cholestyramine-aspartame 4 gram oral powder for susp in a packet 1 ea PO DAILY 01/11/23 [History Last Taken Unknown] Allergy/AdvReac Type Severity Reaction Status Date / Time atorvastatin [From Lipitor] AdvReac Severe Myalgias Verified 01/11/23 12:59 Penicillins AdvReac Severe Hives Verified 01/11/23 12:59 Family History Father Heart disease Myocardial infarction Mother Breast cancer Colon cancer Brother Hypertension Brother Diabetes Surgical History (Updated 01/11/23 @ 17:03 by Haylie Benajmin) H/O coronary artery bypass surgery (10/12/09) History of cholecystectomy History of coronary artery stent placement History of laparoscopic cholecystectomy History of open reduction and internal fixation (ORIF) procedure (2020) Social History Smoking Status: Never smoker alcohol intake: never caffeine: Yes Type: tea Number of servings: 1 what type of physical activity do you participate in: none ROS Constitutional Constitutional: Denies chills, fatigue, fever(s) or malaise Eyes Eyes: Denies blurry vision ENT HEENT: Denies headache(s) or nasal discharge Cardiovascular Cardiovascular: Reports chest pain and palpitations; Denies dyspnea on exertion or syncope Respiratory/Chest Respiratory/Chest: Denies cough, shortness of breath at rest or shortness of breath with exertion Gastrointestinal Gastrointestinal: Denies constipation, diarrhea, nausea or vomiting Genitourinary Genitourinary: Denies dysuria Neurologic Neurologic: Denies focal weakness, numbness or tremor(s) Psychiatric Psychiatric: Denies anxiety or depression Vital Signs Vital Signs Vital Signs: 01/11/23 13:00 01/11/23 13:25 01/11/23 13:31 Temperature 97.3 F L Temperature Source Temporal Pulse Rate 68 Respiratory Rate 14 Respiratory Effort Normal Non-Labored Blood Pressure 137/84 H Blood Pressure Mean 101 Pulse Ox 98 Oxygen Delivery Method Room Air Room Air Weight Weight: 256 lb 9.889 oz Body Mass Index (BMI) 34.8 Physical Exam Narrative General: Alert, Oriented x3, Cooperative, No apparent distress HEENT: Atraumatic, PERRLA, EOMI, Normocephalic Oral: Moist Mucosa Neck: Supple, No JVD Lungs: Diminished, Normal air movement, No rhonchi, No wheeze, No rales Cardiovascular: Regular rate, Regular Rhythm, Normal S1, Normal S2, No murmurs Abdomen: Soft, Non Tender, Non-Distended, No Hepato-splenomegaly Extremities: No edema, Capillary Refill Less than 3 Seconds Skin: No rashes, No breakdown Musculoskeletal: No Tenderness to Palpation of Joints or Extremities Neurological: Cranial nerves II-XII grossly intact, Motor Exam 5/5 strength throughout, Sensory exam intact to light touch and pain Psych/Mental Status: Normal Affect, Appropriate Results Lab / Micro Data 01/11/23 13:20 01/11/23 13:20 Labs: Laboratory Results - last 24 hr 01/11/23 13:20: WBC 14.4 H, RBC 5.44, Hgb 15.5, Hct 47.2, MCV 86.8, MCH 28.5, MCHC 32.8, RDW Std Deviation 46.4 H, RDW Coeff of Sumit 14.7 H, Plt Count 228, MPV11.9, Immature Gran % (Auto) 0.600, Neut % (Auto) 78.9 H, Lymph % (Auto) 11.1 L,Warren % (Auto) 7.3, Eos % (Auto) 1.8, Baso % (Auto) 0.3, Absolute Neuts (auto) 11.4 H, Absolute Lymphs (auto) 1.61, Nucleated RBC % 0, Sodium 136, Potassium 4.1, Chloride 105, Carbon Dioxide 24.0, Anion Gap 7, BUN 28 H, Creatinine 1.32 H, Estim Creat Clear Calc 62.05, Est GFR (MDRD) Af Amer 70, Est GFR (MDRD) Non-Af58 L, BUN/Creatinine Ratio 21.2 H, Glucose 138 H, Calcium 9.6, Magnesium 1.9, Troponin I High Sens 2594 H* Radiology Impression Chest X-Ray 01/11/23 13:45 IMPRESSION: Cardiomegaly. The lungs are clear. Electronically Signed: Nile Batista MD at 14:00 EST , Assessment & Plan Assessment/Plan (1) Non-STEMI (non-ST elevated myocardial infarction): PLAN: Plan 1. Non-STEMI/CAD status post CABG/HTN/HLD ? Presenting today with chest pain and elevated troponins to 2500 ? We will serial troponins ? Continue with heparin drip ? We will consult cardiology for heart cath in the morning ? Can resume his home blood pressure medications and his cholesterol medications 2. DM 2 ? We will hold his home glimepiride as well as his Sitagliptin/metformin combo pill, can continue with his Jardiance ? Accu-Cheks ACHS ? Sliding scale insulin ? We will monitor and make adjustments as necessary DVT: Heparin drip Charges/Coding Visit Charges Inpatient E&M: 46338 Init Hosp L2 01/11/231942 <Electronically signed by Mick De Leon MD> Cosigner Signature (if applicable): CC: Dr. Mick De Leon MD; Emi Dubose DO~ Signed [facility] Work Phone: 1(578) 716-867011-09-2023 Discharge summary Author Gilda Diaz [facility] January 11, 2023 3:03pm Note Date/Time January 11, 2023 1 :35pm [facility] Medical Records Department [address] [place] [address] Emergency Department Summary 01/11/23 MR#: [id number] Acct: [id number] Name: NEEL BENJAMIN Rep #:[id number] : 1960 62 From: Gilda Diaz MD PCP: Emi Dubose DO Status:REG E R Location: ED HPI History of Present Illness Chief Complaint: Chest Pain Informant: patient Onset/Context/Timing Onset: Yesterday Narrative Narrative: Patient presents secondary to heart racing and chest pain. He reportedly has a history of episodes where his heart will race and he will get pain across his chest. He states usually this lasts 10 minutes or so and then goes away. During his stress test last year he had an episode of this. Per the notes he had SVT that spontaneously resolved. Patient states last evening he had anotherepisode that lasted approximately an hour before it went away. Today he was moving a table and states that he was overheated and warm. He states again his heart started racing and he had chest pressure that lasted about an hour. At this time patient denies any chest pain or shortness of breath. He does have a history of coronary artery disease and had a bypass surgery in 2009. He did take 2 baby aspirin this morning as well as 2 full-size aspirin just prior to arrival. [facility] Medical History Acute calculous cholecystitis Atherosclerotic heart disease of agdaagux coronary artery without angina pectoris Essential (primary) hypertension HLD (hyperlipidemia) Incomplete right bundle branch block Obesity Type 2 diabetes mellitus Home Medications sitagliptin phosphate 50 mg-metformin 1,000 mg tablet 1 tab PO BID 07/31/17 [History Last Taken Unknown] escitalopram oxalate 10 mg tablet 10 mg PO DAILY 90 days ##90 08/03/17 [History Last Taken Unknown] montelukast 10 mg tablet 10 mg PO DAILY 90 days ##90 08/03/17 [History Last Taken Unknown] empagliflozin 25 mg tablet (Jardiance) 25 mg PO DAILY 05/07/18 [History Last Taken Unknown] aspirin 81 mg tablet,delayed release (Adult Aspirin Regimen) 162 mg PO DAILY 05/12/21 [History Last Taken Unknown] hydrochlorothiazide 25 mg tablet 25 mg PO QDAY #90 tabs 06/16/22 [Rx Last Taken Unknown] metoprolol succinate 50 mg tablet,extended release 24 hr 50 mg PO QDAY #90 tabs 06/16/22 [Rx Last Taken Unknown] ramipril 5 mg capsule 5 mg PO BID #180 caps 06/16/22 [Rx Last Taken Unknown] glimepiride 4 mg tablet 4 mg PO QDAY 07/28/22 [History Last Taken Unknown] pravastatin 20 mg tablet 20 mg PO QDAY #90 tabs 07/28/22 [Rx Last Taken Unknown] cholecalciferol (vitamin D3) 50 mcg (2,000 unit) tablet (D3 DOTS) 50 mcg PO DAILY 10/19/22 [History Last Taken Unknown] meclizine 25 mg tablet 25 mg PO DAILY 10/19/22 [History Last Taken Unknown] cholestyramine-aspartame 4 gram oral powder for susp in a packet 1 ea PO DAILY 01/11/23 [History Last Taken Unknown] Allergy/AdvReac Type Severity Reaction Status Date / Time atorvastatin [From Lipitor] AdvReac Severe Myalgias Verified 01/11/23 12:59 Penicillins AdvReac Severe Hives Verified 01/11/23 12:59 Family History Father Heart disease Myocardial infarction Mother Breast cancer Colon cancer Brother Hypertension Brother Diabetes Surgical History H/O coronary artery bypass surgery (10/12/09) History of laparoscopic cholecystectomy History of open reduction and internal fixation (ORIF) procedure (2020) Social History Smoking Status: Never smoker alcohol intake: never caffeine: Yes Type: tea Number of servings: 1 what type of physical activity do you participate in: none ROS ROS ED Constitutional Constitutional ED: Denies chills or fever(s) Eyes Eyes: Denies change in vision or discharge from eye(s) ENT ENT ED: Denies discharge from eye(s), rhinorrhea or sore throat Cardiovascular Cardiovascular: Reports chest pain and palpitations Respiratory/Chest Respiratory/Chest: Denies cough or dyspnea Gastrointestinal Gastrointestinal: Denies abdominal pain, nausea or vomiting Genitourinary Genitourinary ED: Denies dysuria Musculoskeletal Musculoskeletal: Denies back pain or extremity pain Integumentary Denies Abrasions or rash Neurologic Neurologic: Denies headache(s) or weakness Psychiatric Psychiatric: Denies anxiety or depression Allergic/Immunologic Allergic/Immunologic ED: Denies lip swelling or urticaria EXAM Physical Exam Const Vital Signs: 01/11/23 13:00 01/11/23 13:25 Temperature 97.3 F L Temperature Source Temporal Pulse Rate 68 Respiratory Rate 14 Respiratory Effort Normal Non-Labored Blood Pressure 137/84 H Blood Pressure Mean 101 Pulse Ox 98 Oxygen Delivery Method Room Air Positive well nourished and well developed General Appearance ED: well developed HEENT Reports moist mucous membranes Eyes EOMs intact bilaterally Resp normal respiratory effort and clear to auscultation bilaterally Cardio regular rate and regular rhythm GI soft to palpation and non-tender Extremity normal to inspection Neuro oriented x3, CN's II-XII intact bilaterally and no sensory deficits noted Motor Exam: strength 5/5 throughout Psych mental status grossly normal Skin no rashes or lesions noted MDM MDM MDM Narrative Medical decision making narrative: Patient placed on rental manager. EKG obtained to evaluate for cardiac arrhythmia/ischemia. Chest x-ray obtained to evaluate for acute lung pathology,cardiac size, or mediastinal abnormality. Labwork obtained to evaluate for leukocytosis, anemia, and electrolyte derangement. Discharge Plan Triage Chief Complaint: Chest Pain ED Provider: Gilda Diaz Dx/Rx/DC Orders Prescriptions: No Action montelukast 10 mg tablet 10 mg PO DAILY 90 Days Qty: 90 Patient Comments: TAKE 1 TABLET BY MOUTH AT BEDTIME escitalopram oxalate 10 mg tablet 10 mg PO DAILY 90 Days Qty: 90 Patient Comments: TAKE 1 TABLET BY MOUTH DAILY sitagliptin phos-metformin 50-1,000 mg tablet 1 tab PO BID glimepiride 4 mg tablet 4 mg PO QDAY Rx Instructions: Stopping glimepiride and starting Ozempic on Sunday07/30/2022 Jardiance 25 mg tablet 25 mg PO DAILY aspirin [Adult Aspirin Regimen] 81 mg tablet,delayed release (DR/EC) 162 mg PO DAILY Rx Instructions: 2 tabs qam pravastatin 20 mg tablet 20 mg PO QDAY Qty: 90 3RF meclizine 25 mg tablet 25 mg PO DAILY cholecalciferol (vitamin D3) [D3 DOTS] 50 mcg (2,000 unit) tablet 50 mcg PO DAILY oxycodone 5 mg Tablet 5 mg PO Q4H PRN PRN (Reason: Pain Score 4-10) 5 Days Qty: 14 0RF hydrochlorothiazide 25 mg tablet 25 mg PO QDAY Qty: 90 3RF ramipril 5 mg capsule 5 mg PO BID Qty: 180 3RF metoprolol succinate 50 mg tablet extended release 24 hr 50 mg PO QDAY Qty: 90 3RF cholestyramine-aspartame 4 gram powder in packet See Rx Instructions .ROUTE .COMPLEX Qty: 60 0RF Dose Instruction: 4 G ORALLY TWICE A DAY ADMINISTER W/MEAL AVOID OTHER MEDS WITHIN 1HOUR BEFOREOR 4-6HR AFTER DOSE Rx Instructions: 4 G ORALLY TWICE A DAY ADMINISTER W/MEAL AVOID OTHER MEDS WITHIN 1HOUR BEFOREOR 4-6HR AFTER DOSE Primary Care Provider: Emi Dubose Referrals: Emi Dubose, DO [Primary Care Provider] - What to do if you have Problems For any increased pain, shortness of breath, bleeding, nausea or vomiting, chestpain, or any unexpected problems, contact your Primary Care Provider. Call [facility] ([phone]) or report to the closest Emergency Room. Call 911 if necessary. 01/11/23 0897 <Electronically signed by Gilda Diaz MD> Cosigner Signature (if applicable): CC: Emi Dubose DO ~ Signed [facility] Work Phone: 1(355) 490-225011-09-2023 Discharge summary Author Gilda Diaz [facility] January 11, 2023 3:03pm Note Date/Time January 11, 2023 1 :35pm [facility] Medical Records Department [address] [place] [address] Emergency Department Summary 01/11/23 MR#: [id number] Acct: [id number] Name: NEEL BENJAMIN Rep #:[id number] : 1960 62 From: Gilda Diaz MD PCP: Emi Dubose DO Status:REG E R Location: ED HPI History of Present Illness Chief Complaint: Chest Pain Informant: patient Onset/Context/Timing Onset: Yesterday Narrative Narrative: Patient presents secondary to heart racing and chest pain. He reportedly has a history of episodes where his heart will race and he will get pain across his chest. He states usually this lasts 10 minutes or so and then goes away. During his stress test last year he had an episode of this. Per the notes he had SVT that spontaneously resolved. Patient states last evening he had anotherepisode that lasted approximately an hour before it went away. Today he was moving a table and states that he was overheated and warm. He states again his heart started racing and he had chest pressure that lasted about an hour. At this time patient denies any chest pain or shortness of breath. He does have a history of coronary artery disease and had a bypass surgery in 2009. He did take 2 baby aspirin this morning as well as 2 full-size aspirin just prior to arrival. [facility] Medical History Acute calculous cholecystitis Atherosclerotic heart disease of [place] coronary artery without angina pectoris Essential (primary) hypertension HLD (hyperlipidemia) Incomplete right bundle branch block Obesity Type 2 diabetes mellitus Home Medications sitagliptin phosphate 50 mg-metformin 1,000 mg tablet 1 tab PO BID 07/31/17 [History Last Taken Unknown] escitalopram oxalate 10 mg tablet 10 mg PO DAILY 90 days ##90 08/03/17 [History Last Taken Unknown] montelukast 10 mg tablet 10 mg PO DAILY 90 days ##90 08/03/17 [History Last Taken Unknown] empagliflozin 25 mg tablet (Jardiance) 25 mg PO DAILY 05/07/18 [History Last Taken Unknown] aspirin 81 mg tablet,delayed release (Adult Aspirin Regimen) 162 mg PO DAILY 05/12/21 [History Last Taken Unknown] hydrochlorothiazide 25 mg tablet 25 mg PO QDAY #90 tabs 06/16/22 [Rx Last Taken Unknown] metoprolol succinate 50 mg tablet,extended release 24 hr 50 mg PO QDAY #90 tabs 06/16/22 [Rx Last Taken Unknown] ramipril 5 mg capsule 5 mg PO BID #180 caps 06/16/22 [Rx Last Taken Unknown] glimepiride 4 mg tablet 4 mg PO QDAY 07/28/22 [History Last Taken Unknown] pravastatin 20 mg tablet 20 mg PO QDAY #90 tabs 07/28/22 [Rx Last Taken Unknown] cholecalciferol (vitamin D3) 50 mcg (2,000 unit) tablet (D3 DOTS) 50 mcg PO DAILY 10/19/22 [History Last Taken Unknown] meclizine 25 mg tablet 25 mg PO DAILY 10/19/22 [History Last Taken Unknown] cholestyramine-aspartame 4 gram oral powder for susp in a packet 1 ea PO DAILY 01/11/23 [History Last Taken Unknown] Allergy/AdvReac Type Severity Reaction Status Date / Time atorvastatin [From Lipitor] AdvReac Severe Myalgias Verified 01/11/23 12:59 Penicillins AdvReac Severe Hives Verified 01/11/23 12:59 Family History Father Heart disease Myocardial infarction Mother Breast cancer Colon cancer Brother Hypertension Brother Diabetes Surgical History H/O coronary artery bypass surgery (10/12/09) History of laparoscopic cholecystectomy History of open reduction and internal fixation (ORIF) procedure (2020) Social History Smoking Status: Never smoker alcohol intake: never caffeine: Yes Type: tea Number of servings: 1 what type of physical activity do you participate in: none ROS ROS ED Constitutional Constitutional ED: Denies chills or fever(s) Eyes Eyes: Denies change in vision or discharge from eye(s) ENT ENT ED: Denies discharge from eye(s), rhinorrhea or sore throat Cardiovascular Cardiovascular: Reports chest pain and palpitations Respiratory/Chest Respiratory/Chest: Denies cough or dyspnea Gastrointestinal Gastrointestinal: Denies abdominal pain, nausea or vomiting Genitourinary Genitourinary ED: Denies dysuria Musculoskeletal Musculoskeletal: Denies back pain or extremity pain Integumentary Denies Abrasions or rash Neurologic Neurologic: Denies headache(s) or weakness Psychiatric Psychiatric: Denies anxiety or depression Allergic/Immunologic Allergic/Immunologic ED: Denies lip swelling or urticaria EXAM Physical Exam Const Vital Signs: 01/11/23 13:00 01/11/23 13:25 Temperature 97.3 F L Temperature Source Temporal Pulse Rate 68 Respiratory Rate 14 Respiratory Effort Normal Non-Labored Blood Pressure 137/84 H Blood Pressure Mean 101 Pulse Ox 98 Oxygen Delivery Method Room Air Positive well nourished and well developed General Appearance ED: well developed HEENT Reports moist mucous membranes Eyes EOMs intact bilaterally Resp normal respiratory effort and clear to auscultation bilaterally Cardio regular rate and regular rhythm GI soft to palpation and non-tender Extremity normal to inspection Neuro oriented x3, CN's II-XII intact bilaterally and no sensory deficits noted Motor Exam: strength 5/5 throughout Psych mental status grossly normal Skin no rashes or lesions noted MDM MDM MDM Narrative Medical decision making narrative: Patient placed on rental manager. EKG obtained to evaluate for cardiac arrhythmia/ischemia. Chest x-ray obtained to evaluate for acute lung pathology,cardiac size, or mediastinal abnormality. Labwork obtained to evaluate for leukocytosis, anemia, and electrolyte derangement. Discharge Plan Triage Chief Complaint: Chest Pain ED Provider: Gilda Diaz Dx/Rx/DC Orders Prescriptions: No Action montelukast 10 mg tablet 10 mg PO DAILY 90 Days Qty: 90 Patient Comments: TAKE 1 TABLET BY MOUTH AT BEDTIME escitalopram oxalate 10 mg tablet 10 mg PO DAILY 90 Days Qty: 90 Patient Comments: TAKE 1 TABLET BY MOUTH DAILY sitagliptin phos-metformin 50-1,000 mg tablet 1 tab PO BID glimepiride 4 mg tablet 4 mg PO QDAY Rx Instructions: Stopping glimepiride and starting Ozempic on Sunday07/30/2022 Jardiance 25 mg tablet 25 mg PO DAILY aspirin [Adult Aspirin Regimen] 81 mg tablet,delayed release (DR/EC) 162 mg PO DAILY Rx Instructions: 2 tabs qam pravastatin 20 mg tablet 20 mg PO QDAY Qty: 90 3RF meclizine 25 mg tablet 25 mg PO DAILY cholecalciferol (vitamin D3) [D3 DOTS] 50 mcg (2,000 unit) tablet 50 mcg PO DAILY oxycodone 5 mg Tablet 5 mg PO Q4H PRN PRN (Reason: Pain Score 4-10) 5 Days Qty: 14 0RF hydrochlorothiazide 25 mg tablet 25 mg PO QDAY Qty: 90 3RF ramipril 5 mg capsule 5 mg PO BID Qty: 180 3RF metoprolol succinate 50 mg tablet extended release 24 hr 50 mg PO QDAY Qty: 90 3RF cholestyramine-aspartame 4 gram powder in packet See Rx Instructions .ROUTE .COMPLEX Qty: 60 0RF Dose Instruction: 4 G ORALLY TWICE A DAY ADMINISTER W/MEAL AVOID OTHER MEDS WITHIN 1HOUR BEFOREOR 4-6HR AFTER DOSE Rx Instructions: 4 G ORALLY TWICE A DAY ADMINISTER W/MEAL AVOID OTHER MEDS WITHIN 1HOUR BEFOREOR 4-6HR AFTER DOSE Primary Care Provider: Emi Dubose Referrals: Emi Dubose DO [Primary Care Provider] - What to do if you have Problems For any increased pain, shortness of breath, bleeding, nausea or vomiting, chestpain, or any unexpected problems, contact your Primary Care Provider. Call [facility] ([phone]) or report to the closest Emergency Room. Call 911 if necessary. 01/11/23 1503 <Electronically signed by Gilda Diaz MD> Cosigner Signature (if applicable): CC: Emi Dubose DO ~ Signed [facility] Work Phone: [phone]) 872-936208-19-2023 Discharge summary Author Curly Coffey [facility] October 21, 2022 4:37pm Note Date/Time October 21, 2022 11 :03am [facility] Medical Records Department [address] [place] [address] Discharge Summary 10/21/22 1103 MR#: [id number] Acct: [id number] Name: NEEL BENJAMIN Rep #:[id number] : 1960 61 From: Curly Ashby PCP: Emi Dubose DO Status:ADM I NO Location: [facility] [place] [id number] Providers Date of Admission: 10/19/22 Primary Care Physician: Emi Dubose DO Reason For Visit: BILIARY COLIC Diagnosis Discharge Diagnosis (1) Acute calculous cholecystitis: Status: Acute Code(s): K80.00 - Calculus of gallbladder with acute cholecystitis without obstruction Plan: Patient is postoperative day 1 from laparoscopic cholecystectomy with intraoperative cholangiogram. Unfortunately cholangiogram was unsuccessful due to a distally occluded cystic duct. This morning patient's LFTs are mildly elevated, but this is likely owing to the use of argon beam coagulation during the procedure on the account of bleeding in the gallbladder fossa. Patient feels well today and confirms that he feels better than preoperatively. He tolerated his clear liquids without issue so I would like to advance him to a regular diet today. If he does fine with this advancement I think he is fit fordischarge to home later today. We will plan to reevaluate, however, this afternoon. Medications at Discharge Home Medications sitagliptin phosphate 50 mg-metformin 1,000 mg tablet 1 tab PO BID 07/31/17 escitalopram oxalate 10 mg tablet 10 mg PO DAILY 90 days ##90 08/03/17 montelukast 10 mg tablet 10 mg PO DAILY 90 days ##90 08/03/17 empagliflozin 25 mg tablet (Jardiance) 25 mg PO DAILY 05/07/18 aspirin 81 mg tablet,delayed release (Adult Aspirin Regimen) 162 mg PO DAILY 05/12/21 hydrochlorothiazide 25 mg tablet 25 mg PO QDAY #90 tabs 06/16/22 metoprolol succinate 50 mg tablet,extended release 24 hr 50 mg PO QDAY #90 tabs 06/16/22 ramipril 5 mg capsule 5 mg PO BID #180 caps 06/16/22 glimepiride 4 mg tablet 4 mg PO QDAY 07/28/22 pravastatin 20 mg tablet 20 mg PO QDAY #90 tabs 07/28/22 cholecalciferol (vitamin D3) 50 mcg (2,000 unit) tablet (D3 DOTS) 50 mcg PO DAILY 10/19/22 meclizine 25 mg tablet 25 mg PO DAILY 10/19/22 oxycodone 5 mg tablet 5 mg PO Q4H PRN PRN Pain Score 4-10 5 days #14 tabs 10/21/22 Hospital Course Operations cholecystecomy (10/20/2022) Procedures None Summary of Care Provided Hospital Course: Patient is a 61-year-old male who presented to [facility] ER on 10/19/2022 due to complaints of progressive and persistent right upper quadrant discomfort. His ER work-up was consistent with a diagnosis of calculus cholecystitis. He was also admitted to the general surgery service and underwent laparoscopic cholecystectomy with attempted intraoperative cholangiogram with Dr. Gomez on 10/20/2022. Intraoperatively the gallbladder was noted to exhibit signs of significant inflammation and the patient was thus returned to the medical surgical floor postoperatively to be monitored for any signs of a postoperative ileus. Postoperative day 0 he was advanced to a clear liquid diet which he tolerated and thus the morning of postoperative day 1 his diet was returned to a regular (low carbohydrate on account of his diabetes) diet. He tolerated this transition uneventfully and labs the morning of postoperative day 1 showed his hemoglobin to be only slightly down trended from his preop values. LFTs were mildly elevated, but this was felt to be consistent with use of argon beam coagulation intraoperatively. With these positive clinical changes patient was discharged home in improved condition on 10/21/2022 with instructions to follow-up in the general surgery office for a postoperative visit. Physical Exam Const alert, oriented x3 and no apparent distress Resp normal respiratory effort GI GI Narrative: Operative dressings with persistent, mild amount of serosanguineous strikethrough. Abdomen is minimally distended and appropriately tender to palpation just about port sites superficially Weight / BMI Weight Weight: 254 lb 13.67 oz Body Mass Index (BMI) 34.5 ABG / Lab / Microbiology Data 10/21/22 07:40 10/21/22 07:40 Laboratory: Laboratory Results - last 24 hr 10/20/22 13:15: POC Glucose 119 H 10/20/22 16:45: POC Glucose 158 H 10/21/22 07:40: WBC 9.7, RBC 4.92, Hgb 14.2, Hct 43.9, MCV 89.2, MCH 28.9, MCHC 32.3, RDW Std Deviation 46.1 H, RDW Coeff of Sumit 14.2, Plt Count 126 L, MPV 11.1, Immature Gran % (Auto) 0.600, Neut % (Auto) 86.2 H, Lymph % (Auto) 3.1 L, Warren % (Auto) 9.9, Eos % (Auto) 0.0, Baso % (Auto) 0.2, Absolute Neuts (auto) 8.4 H, Absolute Lymphs (auto) 0.30 L, Nucleated RBC % 0, Sodium 134 L, Potassium4.0, Chloride 100, Carbon Dioxide 26.0, Anion Gap 8, BUN 17, Creatinine 1.05, Estim Creat Clear Calc 79.04, Est GFR (MDRD) Af Amer 92, Est GFR (MDRD) Non-Af 76, BUN/Creatinine Ratio 16.2, Glucose 151 H, Calcium 8.4 L, Total Bilirubin 0.70, AST 84 H, ALT 67 H, Alkaline Phosphatase 37 L, Total Protein 5.7 L, Albumin 2.9 L, Globulin 2.8, Albumin/Globulin Ratio 1.0 10/21/22 09:49: POC Glucose 202 H Radiography Diagnostic Testing: Radiology Impression Cholangiogram 10/20/22 15:22 IMPRESSION: Fluoroscopic guided intraoperative cholangiogram Electronically Signed: Neel Saha MD at 23:00 EDT Reading Location ID and State: [facility] [place] / [place] , Service support , D/C Instructions Discharge Diet: No restrictions May shower in (days): 1 Ice area for (Minutes): 20 Call your doctor if your incision/area has: Continuous Slow Oozing, Increased Pain/ Swelling, Increased Redness, Foul Smelling Discharge and Swelling at the incision site Call your doctor if you observe: Fever of 101 or Higher Cleanse incision/area with: Soap & Water Please Follow Up With: Trevin Gomez MD When: 7-10days postop Meaningful Use Info Meaningful Use Diagnoses (Choose all that apply): None applicable Discharge Plan Admission Admit Date/Time: 10/19/22 11:02 Primary Reason for Your Visit: Cholecystitis Attending Provider: Trevin Gomez Primary Care Provider: Emi Dubose Discharge Orders/Prescriptions Prescriptions: New oxycodone 5 mg Tablet 5 mg PO Q4H PRN PRN (Reason: Pain Score 4-10) 5 Days Qty: 14 0RF Continued montelukast 10 mg tablet 10 mg PO DAILY 90 Days Qty: 90 Patient Comments: TAKE 1 TABLET BY MOUTH AT BEDTIME escitalopram oxalate 10 mg tablet 10 mg PO DAILY 90 Days Qty: 90 Patient Comments: TAKE 1 TABLET BY MOUTH DAILY sitagliptin phos-metformin 50-1,000 mg tablet 1 tab PO BID glimepiride 4 mg tablet 4 mg PO QDAY Rx Instructions: Stopping glimepiride and starting Ozempic on Sunday07/30/2022 Jardiance 25 mg tablet 25 mg PO DAILY aspirin [Adult Aspirin Regimen] 81 mg tablet,delayed release (DR/EC) 162 mg PO DAILY Rx Instructions: 2 tabs qam pravastatin 20 mg tablet 20 mg PO QDAY Qty: 90 3RF meclizine 25 mg tablet 25 mg PO DAILY cholecalciferol (vitamin D3) [D3 DOTS] 50 mcg (2,000 unit) tablet 50 mcg PO DAILY hydrochlorothiazide 25 mg tablet 25 mg PO QDAY Qty: 90 3RF ramipril 5 mg capsule 5 mg PO BID Qty: 180 3RF metoprolol succinate 50 mg tablet extended release 24 hr 50 mg PO QDAY Qty: 90 3RF Referrals / Follow Up: Emi Dubose DO [Primary Care Provider] - Disposition Disposition (needs filled in before D/C Order can be placed): Home, Self Care Charges/Coding Visit Charges Inpatient E&M: 36310 Disch Hosp 10/21/22 1637 <Electronically signed by Curly Coffey MD> Cosigner Signature (if applicable): CC: Dr. Curly Coffey MD; Emi Dubose DO~ Signed [facility] Work Phone: [phone]) 296-357908-19-2023 Discharge summary Author Curly Coffey [facility] October 21, 2022 4:32pm Note Date/Time October 21, 2022 10 :58am [facility] Medical Records Department [address] [place] [address] Instructions for Home/Discharge Instructions 10/21/22 1055 MR#: [id number] Acct: [id number] Name: NEEL BENJAMIN Rep #:[id number] : 1960 61 From: Curly Ashby PCP: Emi Dubose, DO Status:ADM I NO Discharge Instructions Diet Discharge Diet: No restrictions Activity Discharge Activity: May Not Drive (No driving while using narcotic pain medication) and May Shower (Postoperative day 1) May shower in (days): 1 Ice area for (Minutes): 20 Lifting Restrictions: No lifting greater than 15 pounds for 2 weeks after surgery Dressing / Incision Call your doctor if your incision/area has: Continuous Slow Oozing, Increased Pain/ Swelling, Increased Redness, Foul Smelling Discharge and Swelling at the incision site Call your doctor if you observe: Fever of 101 or Higher Remove Dressing in: 1 day (Please leave Steri-Strips intact until they fall off spontaneously or are taken off at your follow-up visit) Cleanse incision/area with: Soap & Water Follow Up Care Please Follow Up With: Trevin Gomez MD When: 7-10days postop (call the office for an appointment) Test Results: Test results from this visit will be discussed in further detail at your follow- up appointment, if applicable. Discharge Plan Admission Admit Date/Time: 10/19/22 11:02 Primary Reason for Your Visit: Cholecystitis Attending Provider: Trevin Gomez Primary Care Provider: Emi Dubose Discharge Orders/Prescriptions Prescriptions: New oxycodone 5 mg Tablet 5 mg PO Q4H PRN PRN (Reason: Pain Score 4-10) 5 Days Qty: 14 0RF Continued montelukast 10 mg tablet 10 mg PO DAILY 90 Days Qty: 90 Patient Comments: TAKE 1 TABLET BY MOUTH AT BEDTIME escitalopram oxalate 10 mg tablet 10 mg PO DAILY 90 Days Qty: 90 Patient Comments: TAKE 1 TABLET BY MOUTH DAILY sitagliptin phos-metformin 50-1,000 mg tablet 1 tab PO BID glimepiride 4 mg tablet 4 mg PO QDAY Rx Instructions: Stopping glimepiride and starting Ozempic on Sunday07/30/2022 Jardiance 25 mg tablet 25 mg PO DAILY aspirin [Adult Aspirin Regimen] 81 mg tablet,delayed release (DR/EC) 162 mg PO DAILY Rx Instructions: 2 tabs qam pravastatin 20 mg tablet 20 mg PO QDAY Qty: 90 3RF meclizine 25 mg tablet 25 mg PO DAILY cholecalciferol (vitamin D3) [D3 DOTS] 50 mcg (2,000 unit) tablet 50 mcg PO DAILY hydrochlorothiazide 25 mg tablet 25 mg PO QDAY Qty: 90 3RF ramipril 5 mg capsule 5 mg PO BID Qty: 180 3RF metoprolol succinate 50 mg tablet extended release 24 hr 50 mg PO QDAY Qty: 90 3RF Referrals / Follow Up: Emi Dubose DO [Primary Care Provider] - Disposition Disposition (needs filled in before D/C Order can be placed): Home, Self Care 10/21/22 1632<Electronically signed by Curly Coffey MD>Curly Coffey MD CC: Emi Dubose DO ~ Signed [facility] Work Phone: 1(195) 461-107008-19-2023 Progress note Author Curly [facility] October 21, 2022 10:53am Note Date/Time October 21, 2022 8: 31am [facility] Medical Records Department [address] [place] [id number] Progress Note - Surgery 10/21/22830 MR#: [id number] Acct: [id number] Name: NEEL BENJAMIN Rep #:[id number] : 1960 61 From: Curly Ashby PCP: Emi Dubose DO Status:ADM I NO Location: [place] [address] Subjective Subjective Patient seen and examined during AM rounds. He describes feeling better today than he did preoperatively. He tolerated his clear liquids without difficulty and expresses an ongoing appetite/desire for more regular food. He has only mild soreness at his incisions this morning. Objective Data Objective Data Vital Signs: Vital Signs Temp Pulse Resp BP Pulse Ox O2 Del Method 100.3 F H 80 18 114/54 L 93 Room Air 10/21/22 07:09 10/21/22 07:47 10/21/22 07:09 10/21/22 07:09 10/21/22 07:09 10/21/22 07:09 Oxygen Delivery Method Room Air Weight: 254 lb 13.67 oz Body Mass Index (BMI) 34.5 Intake & Output: Intake and Output for Last 24 Hours 10/19/22 10/20/22 10/21/22 23:59 23:59 23:59 Intake Total 1462.5 / 1862.5 4670 / 4670 420 / 420 Balance 1462.5 / 1862.5 4670 / 4670 420 / 420 Lab / Micro Data 10/21/22 07:40 10/21/22 07:40 Labs: Laboratory Results - last 24 hr 10/20/22 13:15: POC Glucose 119 H 10/20/22 16:45: POC Glucose 158 H 10/21/22 07:40: WBC 9.7, RBC 4.92, Hgb 14.2, Hct 43.9, MCV 89.2, MCH 28.9, MCHC 32.3, RDW Std Deviation 46.1 H, RDW Coeff of Sumit 14.2, Plt Count 126 L, MPV 11.1, Immature Gran % (Auto) 0.600, Neut % (Auto) 86.2 H, Lymph % (Auto) 3.1 L, Warren % (Auto) 9.9, Eos % (Auto) 0.0, Baso % (Auto) 0.2, Absolute Neuts (auto) 8.4 H, Absolute Lymphs (auto) 0.30 L, Nucleated RBC % 0 Radiography Diagnostic Testing: Radiology Impression Cholangiogram 10/20/22 15:22 IMPRESSION: Fluoroscopic guided intraoperative cholangiogram Electronically Signed: Neel Saha MD at 23:00 EDT , Physical Exam Const oriented x3 and no apparent distress Resp normal respiratory effort GI GI Narrative: Operative dressings intact over port sites with only mild serosanguineous strikethrough. Nondistended and appropriately tender to palpation just about incision sites. Assessment & Plan Assessment/Plan (1) Acute calculous cholecystitis: PLAN: Patient is postoperative day 1 from laparoscopic cholecystectomy with intraoperative cholangiogram. Unfortunately cholangiogram was unsuccessful due to a distally occluded cystic duct. This morning patient's LFTs are mildly elevated, but this is likely owing to the use of argon beam coagulation during the procedure on the account of bleeding in the gallbladder fossa. Patient feels well today and confirms that he feels better than preoperatively. He tolerated his clear liquids without issue so I would like to advance him to a regular diet today. If he does fine with this advancement I think he is fit fordischarge to home later today. We will plan to reevaluate, however, this afternoon. Charges/Coding Visit Charges Inpatient E&M: 08107 Subs Hosp L2 10/21/22 1053 <Electronically signed by Curly Coffey MD> Cosigner Signature (if applicable): CC: ~ Signed [facility] Work Phone: 1(882) 284-940008-18-[address] [facility]22 Progress note Author Trevin Gomez [facility] October 20, 2022 7:38am Note Date/Time October 20, 2022 7: 38am [facility] Medical Records Department [address] [facility] [place] [address] Progress Note - Surgery 10/20/22 0737 MR#: [id number] Acct: [id number] Name: NEEL BENJAMIN Rep #:[id number] : 1960 61 From: Trevin kauffman MD PCP: Emi Dubose, DO Status:ADM I NO Location: [place] [address] Subjective Subjective Patient continues to have right upper quadrant pain Objective Data Objective Data Vital Signs: Vital Signs Temp Pulse Resp BP Pulse Ox O2 Del Method 98.1 F 62 14 139/74 H 99 Room Air 10/20/22 02:30 10/20/22 02:30 10/20/22 02:30 10/20/22 02:30 10/20/22 02:30 10/20/22 02:32 Oxygen Delivery Method Room Air Weight: 255 lb Body Mass Index (BMI) 34.5 Intake & Output: Intake and Output for Last 24 Hours 10/18/22 10/19/22 10/20/22 23:59 23:59 23:59 Intake Total 1462.5 / 1862.5 1700 / 1700 Balance 1462.5 / 1862.5 1700 / 1700 Lab / Micro Data 10/20/22 07:05 10/19/22 06:55 Labs: Laboratory Results - last 24 hr 10/19/22 06:55: Sodium 137, Potassium 4.3, Chloride 103, Carbon Dioxide 29.0, Anion Gap 5, BUN 23 H, Creatinine 1.18, Estim Creat Clear Calc 70.33, Est GFR (MDRD) Af Amer 80, Est GFR (MDRD) Non-Af 66, BUN/Creatinine Ratio 19.5, Glucose 200 H, Calcium 11.1 H, Total Bilirubin 0.50, AST 23, ALT 34, Alkaline Phosphatase 44 L, Total Protein 7.3, Albumin 3.6, Globulin 3.7, Albumin/GlobulinRatio 1.0, Lipase 55 10/20/22 07:05: WBC 13.2 H, RBC 5.04, Hgb 14.8, Hct 45.5, MCV 90.3, MCH 29.4, MCHC 32.5, RDW Std Deviation 46.7 H, RDW Coeff of Sumit 14.2, Plt Count 159, MPV 10.7, Immature Gran % (Auto) 0.500, Neut % (Auto) 83.3 H, Lymph % (Auto) 6.1 L, Warren % (Auto) 9.3, Eos % (Auto) 0.5, Baso % (Auto) 0.3, Absolute Neuts (auto) 11.0 H, Absolute Lymphs (auto) 0.80 L, Nucleated RBC % 0 Radiography Diagnostic Testing: Radiology Impression Gallbladder Ultrasound 10/19/22 07:10 IMPRESSION: Hepatomegaly and fatty infiltration of the liver. Multiple gallstones. Electronically Signed: Nile Batista MD at 8:58 EDT , Chest X-Ray 10/20/22 05:00 IMPRESSION: Findings of previous CABG. No radiographic evidence of acute cardiopulmonary disease. Electronically Signed: Santo Otto MD at 4:47 EDT , Physical Exam Const oriented x3 and no apparent distress Resp normal respiratory effort Cardio regular rate and regular rhythm GI soft to palpation Palpation: tender RUQ Assessment & Plan Assessment/Plan (1) Acute calculous cholecystitis: PLAN: Patient continues to have right upper quadrant pain. Ultrasound revealed gallstones and the patient has a elevated white count as well. Plan for laparoscopic cholecystectomy this afternoon. I discussed the procedure in detail with the patient. I discussed the risks, benefits, and alternatives of the procedure. I discussed the risks including but not limited to bleeding, infection, injury to surrounding organs such as the liver, bile duct, bowels. Idid discuss the possibility of having to convert to an open procedure as well asthe possibility that if any injuries occurred this may necessitate further surgery at a tertiary care center. Trevin Gomez MD Pager: [facility] [address] [place] [address], [address] [place] [address] Office: 10/20/22 [phone] <Electronically signed by Trevin Gomez MD> Cosigner Signature (if applicable): CC: ~ Signed [facility] Work Phone: 1(779) 569-235108-17-2023 History and physical note Author Ericka Sheppard [facility] October 19, 2022 11:56am Note Date/Time October 19, 2022 11 :23am [facility] Medical Records Department [address] [place] [id number] History & Physical Exam 10/19/22 1119 MR#: [id number] Acct: [id number] Name: NEEL BENJAMIN Rep #:[id number] : 1960 61 From: Ericka JAIN PA-C PCP: Emi Dubose, DO Status:ADM I NO Location: [facility] [place] [facility] [id number] HPI - General General Date of Admission: 10/19/22 Date of Service: 10/19/22 Chief Complaint: Abdominal pain HPI Narrative NEEL BENJAMIN, is a 61 M who presents with a 3 day history of worsening abdominal pain. Patient notes 3 days ago he started having upper abdominal pain worse in the right upper quadrant than on the left. Patient notes the pain has been colicky and comes in waves. He does not attribute the pain/discomfort to food. He notes the pain progressed last night and intensified to an 8 out of 10 at 0200 AM. Patient notes he was unable to sleep. he notes the pain this morningcaused nausea and vomiting. Patient notes the pain radiates into the patient's back on the right side. He states he is moving and thought his back pain was possibly from picking up boxes. Patient notes he had scrambled eggs last night around 5 pm. He notes around 8 pm is when the pain intensified. Patient notes over the last 3 days he has not had much of an appetite. Patient describes the pain also as a hollow/nagging feeling in the pit of your stomach, however he notes again the majority of his pain is in the right upper quadrant. He denies any previous gallbladder episodes. He denies having these specific symptoms previously. Patient denies any previous abdominal surgeries. He notes in 2009 he had cardiac bypass x 3 vessel surgery. His diagnostic radiologist is Dr. Parra. He recently had an appointment in July where from a cardiac standpoint, the patient seems to be doing well. He denies previous history of myocardial infarction, stroke. He states he takes 2 81mg aspirin daily. Patient notes he has also taken 2 Advil every morning for many years for aches and pains. 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 Patient notes he was recently taken off of Ozempic 3 weeks ago due to the patient not tolerating this specific medication or the increase in dosage that took place. He notes that his bowel have never been "right" since the medicationwas added and taken away. Patient notes he had horrible diarrhea and a cramping sensation throughout his entire abdomen while he was taking the medication. Patient states this current pain and symptoms are different than what he was experiencing on Ozempic. Patient is on oral medication for diabetes. He does nottake insulin. Patient does have an allergy to PCN. RUQ u/s demonstrates gallstones, negative Thornton's sign, no pericholecystic fluid, normal gallbladder wall at 1.9 mm. Liver enzymes are within normal limits. Patient does have an elevated WBC at 12.3. 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 Essential (primary) hypertension HLD (hyperlipidemia) Incomplete right bundle branch block Obesity Type 2 diabetes mellitus Home Medications sitagliptin phosphate 50 mg-metformin 1,000 mg tablet 1 tab PO BID 07/31/17 [History Last Taken Unknown] escitalopram oxalate 10 mg tablet 10 mg PO DAILY 90 days ##90 08/03/17 [History Last Taken Unknown] montelukast 10 mg tablet 10 mg PO DAILY 90 days ##90 08/03/17 [History Last Taken Unknown] empagliflozin 25 mg tablet (Jardiance) 25 mg PO DAILY 05/07/18 [History Last Taken Unknown] aspirin 81 mg tablet,delayed release (Adult Aspirin Regimen) 162 mg PO DAILY 05/12/21 [History Last Taken Unknown] hydrochlorothiazide 25 mg tablet 25 mg PO QDAY #90 tabs 06/16/22 [Rx Last Taken Unknown] metoprolol succinate 50 mg tablet,extended release 24 hr 50 mg PO QDAY #90 tabs 06/16/22 [Rx Last Taken Unknown] ramipril 5 mg capsule 5 mg PO BID #180 caps 06/16/22 [Rx Last Taken Unknown] glimepiride 4 mg tablet 4 mg PO QDAY 07/28/22 [History Last Taken Unknown] pravastatin 20 mg tablet 20 mg PO QDAY #90 tabs 07/28/22 [Rx Last Taken Unknown] cholecalciferol (vitamin D3) 50 mcg (2,000 unit) tablet (D3 DOTS) 50 mcg PO DAILY 10/19/22 [History Last Taken Unknown] meclizine 25 mg tablet 25 mg PO DAILY 10/19/22 [History Last Taken Unknown] Allergy/AdvReac Type Severity Reaction Status Date / Time atorvastatin [From Lipitor] AdvReac Severe Myalgias Verified 10/19/22 06:54 Penicillins AdvReac Severe Hives Verified 10/19/22 06:54 Family History Father Heart disease Myocardial infarction Mother Breast cancer Colon cancer Brother Hypertension Brother Diabetes Surgical History H/O coronary artery bypass surgery (10/12/09) History of open reduction and internal fixation (ORIF) procedure (2020) Social History Smoking Status: Never smoker alcohol intake: never caffeine: Yes Type: tea Number of servings: 1 what type of physical activity do you participate in: none ROS Constitutional Constitutional: Reports systems reviewed and no addt'l complaints, except as documented Eyes Eyes: Reports systems reviewed and no addt'l complaints, except as documented ENT HEENT: Reports systems reviewed and no addt'l complaints, except as documented Cardiovascular Cardiovascular: Reports systems reviewed and no addt'l complaints, except as documented Respiratory/Chest Respiratory/Chest: Reports systems reviewed and no addt'l complaints, except as documented Gastrointestinal Gastrointestinal: Reports systems reviewed and no addt'l complaints, except as documented Genitourinary Genitourinary: Reports systems reviewed and no addt'l complaints, except as documented Musculoskeletal Musculoskeletal: Reports systems reviewed and no addt'l complaints, except as documented Integumentary Integumentary: Reports systems reviewed and no addt'l complaints, except as documented Neurologic Neurologic: Reports systems reviewed and no addt'l complaints, except as documented Psychiatric Psychiatric: Reports systems reviewed and no addt'l complaints, except as documented Endocrine Endocrinology: Reports systems reviewed and no addt'l complaints, except as documented Hematologic/Lymphatic Hematologic/Lymphatic: Reports systems reviewed and no addt'l complaints, exceptas documented Allergic/Immunologic Allergic/Immunologic: Reports systems reviewed and no addt'l complaints, except as documented Vital Signs Vital Signs Vital Signs: 10/19/22 06:49 10/19/22 08:49 10/19/22 09:08 Temperature 98.5 F 97.4 F L Temperature Source Temporal Temporal Pulse Rate 67 84 64 Respiratory Rate 18 14 14 Respiratory Effort Respiratory Depth Respiratory Pattern Blood Pressure 165/88 H 141/88 H 135/76 H Blood Pressure Mean 113 105 95 Blood Pressure Source Blood Pressure Position Blood Pressure Location Pulse Ox 98 99 98 Oxygen Delivery Method Room Air Room Air 10/19/22 10:26 10/19/22 10:56 Temperature 97.8 F Temperature Source Oral Pulse Rate 60 Respiratory Rate 16 Respiratory Effort Normal Non-Labored Respiratory Depth Normal Respiratory Pattern Normal Blood Pressure 156/80 H Blood Pressure Mean 105 Blood Pressure Source Monitor Blood Pressure Position Semi-Fowlers Blood Pressure Location Left Arm Pulse Ox 98 Oxygen Delivery Method Room Air Room Air Weight Weight: 255 lb Body Mass Index (BMI) 34.5 Physical Exam Const alert, oriented x3 and no apparent distress HEENT normocephalic Eyes PERRL Neck full ROM Lymph Lymphatic: no lymphadenopathy noted Chest inspection of chest normal Chest Narrative: Nicely healed sternal incision Resp normal respiratory effort and clear to auscultation bilaterally Cardio regular rate and regular rhythm GI GI Narrative: Negative Thornton's sign Inspection: central obesity; Negative for incision Auscultation: hypoactive bowel sounds Palpation: tender RUQ and guarding RUQ no CVA tenderness Back/Spine no CVA tenderness Extremity normal to inspection General Extremity: Negative for edema Skin no rashes or lesions noted Neuro no focal motor deficits and no sensory deficits noted Psych Appearance: grossly normal Speech: normal speech Results Lab / Micro Data 10/19/22 06:55 10/19/22 06:55 Labs: Laboratory Results - last 24 hr 10/19/22 06:55: WBC 12.3 H, RBC 5.67, Hgb 16.4, Hct 49.7, MCV 87.7, MCH 28.9, MCHC 33.0, RDW Std Deviation 45.3 H, RDW Coeff of Sumit 14.1, Plt Count 206, MPV 11.2, Immature Gran % (Auto) 0.600, Neut % (Auto) 72.3 H, Lymph % (Auto) 16.2 L,Warren % (Auto) 7.0, Eos % (Auto) 3.6, Baso % (Auto) 0.3, Absolute Neuts (auto) 8.9 H, Absolute Lymphs (auto) 1.98, Nucleated RBC % 0, Sodium 137, Potassium 4.3, Chloride 103, Carbon Dioxide 29.0, Anion Gap 5, BUN 23 H, Creatinine 1.18, Estim Creat Clear Calc 70.33, Est GFR (MDRD) Af Amer 80, Est GFR (MDRD) Non-Af 66, BUN/Creatinine Ratio 19.5, Glucose 200 H, Calcium 11.1 H, Total Bilirubin 0.50, AST 23, ALT 34, Alkaline Phosphatase 44 L, Total Protein 7.3, Albumin 3.6,Globulin 3.7, Albumin/Globulin Ratio 1.0, Lipase 55 Radiology Impression Gallbladder Ultrasound 10/19/22 07:10 IMPRESSION: Hepatomegaly and fatty infiltration of the liver. Multiple gallstones. Electronically Signed: Nile Batista MD at 8:58 EDT , Assessment & Plan Assessment/Plan (1) Acute calculous cholecystitis: PLAN: I am seeing this patient in conjunction with Dr. Gomez. He will independently evaluate this patient. Patient has had a 3 day history of upper abdominal pain worse in the RUQ radiating into his back. Patient is a non- insulin dependent diabetic with an elevated WBC with a left shift. His liver enzymes are unremarkable. RUQ demonstrates gallstones. Differential diagnosis includes acute calculus cholecystitis v. biliary colic v. GERD with erythema or ulceration. We will plan to admit this patient under observation. Dr. Ojeda plan to perform a laparoscopic cholecystectomy with intraoperative cholangiogram tomorrow afternoon. Procedure details, risks and benefits have been thoroughly explained. Patient is also aware that this may or may not resolve his pain. If that patient continues to have symptoms following the procedure, an upper scope will be recommended. Patient is also aware that by removing the gallbladder, he may develop loose stools. Patient and his havehad the opportunity to ask and have questions answered. Patient verbally understands and agrees with the plan. Patient would like to proceed with admission and planned cholecystectomy tomorrow. Thank you for allowing me to participate in this patient's care. Charges/Coding Visit Charges OBSV E&M: 78832 Observ/hosp same date L1 10/19/22 1156 <Electronically signed by Ericka JAIN PA-C> Cosigner Signature (if applicable): CC: ROBERT Sheppard; Dr. Trevin Gomez MD; Emi Dubose DO~ Signed [facility] Work Phone: 1(375) 509-998208-17-2023 Discharge summary Author Adam Pang [facility] October 19, 2022 9:10am Note Date/Time October 19, 2022 7: 12am [facility] Medical Records Department [address] [place] [address] Emergency Department Summary 10/19/22 MR#: [id number] Acct: [id number] Name: NEEL BENJAMIN Rep #:[id number] : 1960 61 From: Adam Pang MD PCP: Emi M Sedrick, DO Status:REG E R Location: ED HPI HPI - GI History of Present Illness Chief Complaint: Abd Pain Informant: patient Narrative Narrative: Patient has had about 2 days of gradual onset colicky aching pain in his upper abdomen, feels like it is going all the way across and radiating into his back. Associated with nausea, he vomited this morning, not necessarily related to meals. Does not drink alcohol. No history of any abdominal surgeries in the past. Takes 2 baby aspirin daily for a history of CAD had a CABG. Has had loose stools with this but no blood or melena. No fevers, chills, jaundice, confusion. 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 Essential (primary) hypertension HLD (hyperlipidemia) Incomplete right bundle branch block Obesity Type 2 diabetes mellitus Home Medications sitagliptin phosphate 50 mg-metformin 1,000 mg tablet 1 tab PO BID 07/31/17 [History Last Taken Unknown] escitalopram oxalate 10 mg tablet 10 mg PO DAILY 90 days ##90 08/03/17 [History Last Taken Unknown] montelukast 10 mg tablet 10 mg PO DAILY 90 days ##90 08/03/17 [History Last Taken Unknown] empagliflozin 25 mg tablet (Jardiance) 25 mg PO DAILY 05/07/18 [History Last Taken Unknown] aspirin 81 mg tablet,delayed release (Adult Aspirin Regimen) 162 mg PO DAILY 05/12/21 [History Last Taken Unknown] hydrochlorothiazide 25 mg tablet 25 mg PO QDAY #90 tabs 06/16/22 [Rx Last Taken Unknown] metoprolol succinate 50 mg tablet,extended release 24 hr 50 mg PO QDAY #90 tabs 06/16/22 [Rx Last Taken Unknown] ramipril 5 mg capsule 5 mg PO BID #180 caps 06/16/22 [Rx Last Taken Unknown] glimepiride 4 mg tablet 4 mg PO QDAY 07/28/22 [History Last Taken Unknown] pravastatin 20 mg tablet 20 mg PO QDAY #90 tabs 07/28/22 [Rx Last Taken Unknown] cholecalciferol (vitamin D3) 50 mcg (2,000 unit) tablet (D3 DOTS) 50 mcg PO DAILY 10/19/22 [History Last Taken Unknown] meclizine 25 mg tablet 25 mg PO DAILY 10/19/22 [History Last Taken Unknown] Allergy/AdvReac Type Severity Reaction Status Date / Time atorvastatin [From Lipitor] AdvReac Severe Myalgias Verified 10/19/22 06:54 Penicillins AdvReac Severe Hives Verified 10/19/22 06:54 Family History Father Heart disease Myocardial infarction Mother Breast cancer Colon cancer Brother Hypertension Brother Diabetes Surgical History H/O coronary artery bypass surgery (10/12/09) History of open reduction and internal fixation (ORIF) procedure (2020) Social History Smoking Status: Never smoker alcohol intake: never caffeine: Yes Type: tea Number of servings: 1 what type of physical activity do you participate in: none ROS ROS ED Constitutional Constitutional ED: Reports anorexia; Denies chills or fever(s) Eyes Eyes: Denies change in vision or diplopia ENT ENT ED: Denies rhinorrhea or sore throat Cardiovascular Cardiovascular: Denies chest pain or palpitations Respiratory/Chest Respiratory/Chest: Denies cough or dyspnea Gastrointestinal Gastrointestinal: Reports abdominal pain, diarrhea, nausea and vomiting; Denies melena Genitourinary Genitourinary ED: Denies dysuria or hematuria Musculoskeletal Musculoskeletal: Reports back pain; Denies neck pain Integumentary Denies abscess or rash Neurologic Neurologic: Denies headache(s), paresthesias or weakness Psychiatric Psychiatric: Denies anxiety or suicidal thoughts EXAM Physical Exam Const Vital Signs: 10/19/22 06:49 Temperature 98.5 F Temperature Source Temporal Pulse Rate 67 Respiratory Rate 18 Blood Pressure 165/88 H Blood Pressure Mean 113 Pulse Ox 98 Positive well nourished and well developed General Appearance ED: well developed and NAD HEENT Reports moist mucous membranes normocephalic and atraumatic Eyes PERRL and EOMs intact bilaterally Neck full ROM and supple Resp normal respiratory effort and clear to auscultation bilaterally Cardio regular rate, regular rhythm and no murmurs GI non-distended GI Narrative: Tender right upper quadrant and epigastrium otherwise benign abdomen. No guarding or rebound. Auscultation: normoactive bowel sounds Palpation: soft Back/Spine no CVA tenderness General Back: other FROM Extremity normal to inspection General Extremety ED: Negative for edema, pulses abnormal or tenderness General Extremity: Negative for edema or pulses abnormal Neuro oriented x3, CN's II-XII intact bilaterally and no sensory deficits noted Sensorium / Orientation: awake and alert Motor Exam: strength 5/5 throughout Skin no rashes or lesions noted and no wounds MDM MDM MDM Narrative Medical decision making narrative: Labs show a mild leukocytosis, his liver enzymes and lipase are within normal limits, I obtained an ultrasound suspicious for cholecystitis, it shows significant number of gallstones, equivocal findings for acute cholecystitis radiographically but clinically I think that is what is going on here. Discussed with Dr. Gomez, who admit the patient and recommending Cipro and Flagyl. Patient was in a bit of pain giving additional analgesics. He is clinically stable. Lab Data Attestation: I reviewed the patient's lab results. Labs: Laboratory Results - last 24 hr 10/19/22 06:55 WBC 12.3 H RBC 5.67 Hgb 16.4 Hct 49.7 MCV 87.7 MCH 28.9 MCHC 33.0 RDW Std Deviation 45.3 H RDW Coeff of Sumit 14.1 Plt Count 206 MPV 11.2 Immature Gran % (Auto) 0.600 Neut % (Auto) 72.3 H Lymph % (Auto) 16.2 L Warren % (Auto) 7.0 Eos % (Auto) 3.6 Baso % (Auto) 0.3 Absolute Neuts (auto) 8.9 H Absolute Lymphs (auto) 1.98 Nucleated RBC % 0 Sodium 137 Potassium 4.3 Chloride 103 Carbon Dioxide 29.0 Anion Gap 5 BUN 23 H Creatinine 1.18 Estim Creat Clear Calc 70.33 Est GFR (MDRD) Af Amer 80 Est GFR (MDRD) Non-Af 66 BUN/Creatinine Ratio 19.5 Glucose 200 H Calcium 11.1 H Total Bilirubin 0.50 AST 23 ALT 34 Alkaline Phosphatase 44 L Total Protein 7.3 Albumin 3.6 Globulin 3.7 Albumin/Globulin Ratio 1.0 Lipase 55 Radiography Diagnostic Testing: Clinical Impression(s) from Imaging Studies Gallbladder Ultrasound 10/19/22 07:10 IMPRESSION: Hepatomegaly and fatty infiltration of the liver. Multiple gallstones. Electronically Signed: Nile Batista MD at 8:58 EDT , My interpretation of the US agrees with that of the radiologist. Management Discussion w/another healthcare provider: Dining Room Host (surgery) Discharge Plan Triage Chief Complaint: Abd Pain ED Provider: Adam Pang Dx/Rx/DC Orders Clinical Impression: Acute calculous cholecystitis Prescriptions: No Action montelukast 10 mg tablet 10 mg PO DAILY 90 Days Qty: 90 Patient Comments: TAKE 1 TABLET BY MOUTH AT BEDTIME escitalopram oxalate 10 mg tablet 10 mg PO DAILY 90 Days Qty: 90 Patient Comments: TAKE 1 TABLET BY MOUTH DAILY sitagliptin phos-metformin 50-1,000 mg tablet 1 tab PO BID glimepiride 4 mg tablet 4 mg PO QDAY Rx Instructions: Stopping glimepiride and starting Ozempic on Sunday07/30/2022 Jardiance 25 mg tablet 25 mg PO DAILY aspirin [Adult Aspirin Regimen] 81 mg tablet,delayed release (DR/EC) 162 mg PO DAILY Rx Instructions: 2 tabs qam pravastatin 20 mg tablet 20 mg PO QDAY Qty: 90 3RF meclizine 25 mg tablet 25 mg PO DAILY cholecalciferol (vitamin D3) [D3 DOTS] 50 mcg (2,000 unit) tablet 50 mcg PO DAILY hydrochlorothiazide 25 mg tablet 25 mg PO QDAY Qty: 90 3RF ramipril 5 mg capsule 5 mg PO BID Qty: 180 3RF metoprolol succinate 50 mg tablet extended release 24 hr 50 mg PO QDAY Qty: 90 3RF Primary Care Provider: Emi Dubose Referrals: Emi Dubose, DO [Primary Care Provider] - Disposition Disposition: Acute Care Hospital [facility] What to do if you have Problems For any increased pain, shortness of breath, bleeding, nausea or vomiting, chestpain, or any unexpected problems, contact your Primary Care Provider. Call [facility] ([phone]) or report to the closest Emergency Room. Call 911 if necessary. 10/19/22 0910 <Electronically signed by Adam Pang MD> Cosigner Signature (if applicable): CC: Emi Dubose DO ~ Signed [facility] Work Phone: [phone] Evaluation note* Diagnosis Onset Date Resolution Status Essential (primary) hypertension chronic HLD (hyperlipidemia) chronic H/O coronary artery bypass surgery October 12, 2009 resolved [facility] Work Phone: [phone] Evaluation note* Diagnosis Onset Date Resolution Status Aortic valve disease acute Essential (primary) hypertension chronic HLD (hyperlipidemia) chronic H/O coronary artery bypass surgery October 12, 2009 resolved Acute calculous cholecystitis acute [facility] Work Phone: Discharge summary Author Lois Hernandes [facility] January 13, 2023 12:29pm Note Date/Time January 13, 2023 12:26pm [facility] Medical Records Department [address] [place] [address] Instructions for Home/Discharge Instructions 01/13/23 1224 MR#: [id number] Acct: [id number] Name: MAGDALENEGABBINEEL JENNIFER Rep #:[id number] : 1960 62 From: Lois Hernandes MD PCP: Emi Dubose DO Status:ADM I N Discharge Instructions Diet Discharge Diet: - (-DASH diet, 3000 mg sodium restriction, 2 L fluid restriction) Activity Discharge Activity: - (Increase activity as tolerated) Follow Up Care Test Results: Test results from this visit will be discussed in further detail at your follow- up appointment, if applicable. Discharge Plan Admission Admit Date/Time: 01/11/23 15:20 Primary Reason for Your Visit: Chest pain Attending Provider: Lois Hernandes Primary Care Provider: Emi Dubose Consulting Providers: Marvin Kirkland; Mick De Leon Instructions Patient Instructions: Coronary Angiography, Coronary Stents Additional Instructions / Restrictions: DISCHARGE INSTRUCTIONS PLEASE READ *Please take this with you to your next doctors appointment* -You will be discharged on aspirin and Brilinta as well as Crestor/rosuvastatin. If you get body aches from the rosuvastatin you can discontinue this -You will need to follow-up with cardiology upon discharge, please call the office of Dr. Kirkland upon discharge to schedule your hospital follow-up appointment ( [phone]) -Please call your primary care provider's office upon discharge to schedule a hospital follow up within 1 week. -For any concerning signs or symptoms please call 911 or proceed to the nearest emergency department Discharge Orders/Prescriptions Prescriptions: New aspirin 81 mg Tablet,Delayed Release (Dr/Ec) 81 mg PO DAILYCM 30 Days Qty: 30 0RF Brilinta 90 mg Tablet 90 mg PO BID 30 Days Qty: 60 0RF rosuvastatin [Crestor] 10 mg tablet 10 mg PO DAILY Qty: 30 0RF Continued montelukast 10 mg tablet 10 mg PO DAILY 90 Days Qty: 90 Patient Comments: TAKE 1 TABLET BY MOUTH AT BEDTIME escitalopram oxalate 10 mg tablet 10 mg PO DAILY 90 Days Qty: 90 Patient Comments: TAKE 1 TABLET BY MOUTH DAILY glimepiride 4 mg tablet 2 mg PO BID Jardiance 25 mg tablet 25 mg PO DAILY pravastatin 20 mg tablet 20 mg PO QDAY Qty: 90 3RF meclizine 25 mg tablet 25 mg PO DAILY cholecalciferol (vitamin D3) [D3 DOTS] 50 mcg (2,000 unit) tablet 50 mcg PO DAILY cholestyramine-aspartame 4 gram powder in packet 1 ea PO DAILY hydrochlorothiazide 25 mg tablet 25 mg PO QDAY Qty: 90 3RF ramipril 5 mg capsule 5 mg PO BID Qty: 180 3RF metoprolol succinate 50 mg tablet extended release 24 hr 50 mg PO QDAY Qty: 90 3RF Held sitagliptin phos-metformin 50-1,000 mg tablet 1 tab PO BID Hold Instructions: Resume on 01/15/23. Discontinued aspirin [Adult Aspirin Regimen] 81 mg tablet,delayed release (DR/EC) 162 mg PO DAILY Rx Instructions: 2 tabs qam Referrals / Follow Up: Emi Dubose DO [Primary Care Provider] - Within 1 Week Marvin Kirkland MD [Med Staff - Active Staff] - Within 1 Month Disposition Disposition (needs filled in before D/C Order can be placed): Home, Self Care 01/13/23 0571<Electronically signed by Lois Hernandes MD>Lois Hernandes MD CC: Dr. Marvin Kirkland MD; Dr. Mick De Leon MD; Emi Dubose DO ~ Signed [facility] Work Phone: Discharge summary Author Lois Hernandes [facility] January 13, 2023 1:11pm Note Date/Time January 13, 2023 12:29pm [facility] Medical Records Department [address] [place] [address] Discharge Summary 01/13/23 1229 MR#: [id number] Acct: [id number] Name: NEEL BENJAMIN Rep #:[id number] : 1960 62 From: Lois Hernandes MD PCP: Emi Dubose DO Status:ADM I N Location: [place] [address] Providers Date of Admission: 01/11/23 Date of Discharge: 01/13/23 Primary Care Physician: Emi Dubose DO Consultations 01/11/23 17:03 Consult: Cardiology Routine Consulting Provider: Marvin Kirkland Reason for Consult: Non-STEMI EMERGENT Consult: No MD Notified: Yes Date Notified: 01/11/23 Time Notified: 15:22 Method of Notification: ED Physician Initiated Reason For Visit: NSTEMI Diagnosis Discharge Diagnosis (1) Non-STEMI (non-ST elevated myocardial infarction): Status: Acute Code(s): I21.4 - Non-ST elevation (NSTEMI) myocardial infarction (2) Stented coronary artery: Status: Acute Code(s): Z95.5 - Presence of coronary angioplasty implant and graft Plan # Non-STEMI #CAD status post CABG and 01/12 YARON #HTN/HLD #DM 2 Medications at Discharge Home Medications sitagliptin phosphate 50 mg-metformin 1,000 mg tablet 1 tab PO BID 07/31/17 escitalopram oxalate 10 mg tablet 10 mg PO DAILY 90 days ##90 08/03/17 montelukast 10 mg tablet 10 mg PO DAILY 90 days ##90 08/03/17 empagliflozin 25 mg tablet (Jardiance) 25 mg PO DAILY 05/07/18 hydrochlorothiazide 25 mg tablet 25 mg PO QDAY #90 tabs 06/16/22 metoprolol succinate 50 mg tablet,extended release 24 hr 50 mg PO QDAY #90 tabs 06/16/22 ramipril 5 mg capsule 5 mg PO BID #180 caps 06/16/22 glimepiride 4 mg tablet 2 mg PO BID 07/28/22 pravastatin 20 mg tablet 20 mg PO QDAY #90 tabs 07/28/22 cholecalciferol (vitamin D3) 50 mcg (2,000 unit) tablet (D3 DOTS) 50 mcg PO DAILY 10/19/22 meclizine 25 mg tablet 25 mg PO DAILY 10/19/22 cholestyramine-aspartame 4 gram oral powder for susp in a packet 1 ea PO DAILY 01/11/23 aspirin 81 mg tablet,delayed release 81 mg PO DAILYCM 30 days #30 tabs 01/13/23 rosuvastatin 10 mg tablet (Crestor) 10 mg PO DAILY #30 tabs 01/13/23 ticagrelor 90 mg tablet (Brilinta) 90 mg PO BID 30 days #60 tabs 01/13/23 Hospital Course Procedures Cardiac catheterization and Transthoracic echo Summary of Care Provided Minutes Spent on Discharge: 32 Hospital Course: 62-year-old female history of type 2 diabetes mellitus, hypertension, coronary artery disease with history of bypass presented 01/11/2023 with chest pain. Was found to have elevated troponins and wall motion abnormalities on echo. Patienton heparin drip and cardiology consulted. Patient had heart cath and had YARON toSVG to OM and SVG to RPDA and was on aspirin, Brilinta, beta-hernan. He did well and had no further symptoms. Discharge instructions as followed: -You will be discharged on aspirin and Brilinta as well as Crestor/rosuvastatin. If you get body aches from the rosuvastatin you can discontinue this -You will need to follow-up with cardiology upon discharge, please call the office of Dr. Kirkland upon discharge to schedule your hospital follow-up appointment (ph [phone]) -Please call your primary care provider's office upon discharge to schedule a hospital follow up within 1 week. -For any concerning signs or symptoms please call 911 or proceed to the nearest emergency department Physical Exam Narrative General: Alert, oriented, no apparent distress HEENT: Atraumatic, normocephalic Eyes: Anicteric, normal conjunctiva, extraocular movements grossly intact Neck: Supple Respiratory: Clear to auscultation bilaterally, normal respiratory effort Cardiovascular: Regular rate and rhythm GI: Soft, nontender, nondistended Extremities: No edema Musculoskeletal: Moving all extremities Neuro: No overt focal neurological deficits Skin: No rashes appreciated Psych: Cooperative Weight / BMI Weight Weight: 111.8 kg Body Mass Index (BMI) 33.4 ABG / Lab / Microbiology Data 01/13/23 06:53 01/13/23 06:53 Laboratory: Laboratory Results - last 24 hr 01/12/23 17:00: POC Glucose 114 H 01/12/23 22:03: POC Glucose 191 H 01/13/23 06:24: POC Glucose 164 H 01/13/23 06:53: WBC 10.5, RBC 5.54, Hgb 15.7, Hct 48.1, MCV 86.8, MCH 28.3, MCHC32.6, RDW Std Deviation 45.6 H, RDW Coeff of Sumit 14.4, Plt Count 199, MPV 10.8, Immature Gran % (Auto) 0.500, Neut % (Auto) 73.6 H, Lymph % (Auto) 13.5 L, Warren % (Auto) 10.3 H, Eos % (Auto) 1.7, Baso % (Auto) 0.4, Absolute Neuts (auto) 7.7,Absolute Lymphs (auto) 1.42, Nucleated RBC % 0, Sodium 134 L, Potassium 4.1, Chloride 101, Carbon Dioxide 27.0, Anion Gap 6, BUN 23 H, Creatinine 1.31 H, Estim Creat Clear Calc 62.53, Est GFR (MDRD) Af Amer 71, Est GFR (MDRD) Non-Af 59 L, BUN/Creatinine Ratio 17.6, Glucose 159 H, Calcium 9.2, Total Bilirubin 0.90, AST 42 H, ALT 31, Alkaline Phosphatase 59, Total Protein 7.4, Albumin 3.6,Globulin 3.8, Albumin/Globulin Ratio 0.9 01/13/23 11:33: POC Glucose 219 H Microbiology: Microbiology 01/11/23 15:39 Mucosa - Nasopharyngeal Respiratory Panel (PCR) - Final D/C Instructions Discharge Diet: - (-DASH diet, 3000 mg sodium restriction, 2 L fluid restriction) Meaningful Use Info Meaningful Use Diagnoses (Choose all that apply): AMI AMI/Post PCI/Angioplasty Aspirin given w/in 24hrs of arrival?: Yes ASA at discharge?: Yes Antiplatelet Therapy at Discharge:: Yes Statins at discharge?: Yes Eddie/ARB at discharge?: Yes Beta Hernan at discharge?: Yes Done w/ Acute AL measure.: Yes Documented LVEF (%): 65 Discharge Plan Admission Admit Date/Time: 01/11/23 15:20 Primary Reason for Your Visit: Chest pain Attending Provider: Lois Hernandes Primary Care Provider: Emi Dubose Consulting Providers: Marvin Kirkland; Mick De Leon Instructions Patient Instructions: Coronary Angiography, Coronary Stents Additional Instructions / Restrictions: DISCHARGE INSTRUCTIONS PLEASE READ *Please take this with you to your next doctors appointment* -You will be discharged on aspirin and Brilinta as well as Crestor/rosuvastatin. If you get body aches from the rosuvastatin you can discontinue this -You will need to follow-up with cardiology upon discharge, please call the office of Dr. Kirkland upon discharge to schedule your hospital follow-up appointment ) -Please call your primary care provider's office upon discharge to schedule a hospital follow up within 1 week. -For any concerning signs or symptoms please call 911 or proceed to the nearest emergency department Discharge Orders/Prescriptions Prescriptions: New aspirin 81 mg Tablet,Delayed Release (Dr/Ec) 81 mg PO DAILYCM 30 Days Qty: 30 0RF Brilinta 90 mg Tablet 90 mg PO BID 30 Days Qty: 60 0RF rosuvastatin [Crestor] 10 mg tablet 10 mg PO DAILY Qty: 30 0RF Continued montelukast 10 mg tablet 10 mg PO DAILY 90 Days Qty: 90 Patient Comments: TAKE 1 TABLET BY MOUTH AT BEDTIME escitalopram oxalate 10 mg tablet 10 mg PO DAILY 90 Days Qty: 90 Patient Comments: TAKE 1 TABLET BY MOUTH DAILY glimepiride 4 mg tablet 2 mg PO BID Jardiance 25 mg tablet 25 mg PO DAILY pravastatin 20 mg tablet 20 mg PO QDAY Qty: 90 3RF meclizine 25 mg tablet 25 mg PO DAILY cholecalciferol (vitamin D3) [D3 DOTS] 50 mcg (2,000 unit) tablet 50 mcg PO DAILY cholestyramine-aspartame 4 gram powder in packet 1 ea PO DAILY hydrochlorothiazide 25 mg tablet 25 mg PO QDAY Qty: 90 3RF ramipril 5 mg capsule 5 mg PO BID Qty: 180 3RF metoprolol succinate 50 mg tablet extended release 24 hr 50 mg PO QDAY Qty: 90 3RF Held sitagliptin phos-metformin 50-1,000 mg tablet 1 tab PO BID Hold Instructions: Resume on 01/15/23. Discontinued aspirin [Adult Aspirin Regimen] 81 mg tablet,delayed release (DR/EC) 162 mg PO DAILY Rx Instructions: 2 tabs qam Referrals / Follow Up: Emi Dubose DO [Primary Care Provider] - Within 1 Week Marvin Kirkland MD [Med Staff - Active Staff] - Within 1 Month Disposition Disposition (needs filled in before D/C Order can be placed): Home, Self Care Charges/Coding Visit Charges Inpatient E&M: 00820 Disch Hosp >30min 01/13/23 1311 <Electronically signed by Lois Hernandes MD> Cosigner Signature (if applicable): CC: Dr. Lois Hernandes MD; Emi Dubose DO~ Signed [facility] Work Phone: Evaluation noteThere may be information available, but it has not been provided by the sender.[facility] Work Phone: Evaluation noteNo assessment information available [facility] Work Phone: Evaluation note* Diagnosis Onset Date Resolution Status Acute calculous cholecystitis resolved Status post laparoscopic cholecystectomy acute Non-STEMI (non-ST elevated myocardial infarction) acute [facility] Work Phone: [facility]* Instruction Description Start Date Completed [facility] Work Phone: Instructions* Instruction Description Start Date Completed [facility] Work Phone: Chief Complaint Chief Complaint Description Start Date right hand pain Preliminary chief co mplaint data, not yet signed by the author as of Chief Complaint Description Start Date right hand Preliminary chief co mplaint data, not yet signed by the author as of Advance Directives No Advanced Directives Records Found Advance Directive Response Recorded Date/ Time Living Will No February 23, 2 021 2:50pm Power of Insole Presser No February 23, 2021 2:50pm Advance Directive Response Recorded Date/ Time Living Will No February 23, 2 021 1:50pm Power of Insole Presser No February 23, 2021 1:50pm Advance Directive Response Recorded Date/ Time Name of Medical Power of Insole Presser Cha October 19, 2022 10:28am Living Will Yes October 19 10:28am Power of Insole Presser Yes October 19, 023 10:28am Advance Directive Response Recorded Date/ Time Name of Medical Power of Insole Presser Cha October 19, 2022 9:28am Name of Medical Power of Insole Presser CHA BENJAMIN January 11, 2023 1:25pm Living Will Yes January 11 1:25pm Power of Insole Presser Yes January 11, 2023 1:25pm Advance Directive Response Recorded Date/ Time Name of Medical Power of Insole Presser Cha October 19, 2022 9:28am Name of Medical Power of Insole Presser CHA BENJAMIN January 11, 2023 4:56pm Living Will Yes January 11 4:56pm Power of Insole Presser Yes January 11, 2023 4:56pm Family History No Family History Records Found Relationship Condition Age at Onset Recorded Date/T eliseo father Cardiac disease Unknown Myocardial infarction Unknown mother Malignant neoplasm of breast Unknown Malignant neoplasm of colon Unknown brother Hypertension Unknown brother Diabetes mellitus Unknown Chief Complaint and Reason for Visit Chief Complaint right hand injury INT LABS 1 Y FU CABG,CAD,HTN CABG,CAD,HTN Reason for Visit Essential (primary) hypertension HLD (hyperlipidemia) H/O coronary artery bypass surgery Chief Complaint INT LABS 1 Y FU CABG,CAD,HTN CABG,CAD,HTN CABG,CAD,HTN Reason for Visit Essential (primary) hypertension HLD (hyperlipidemia) H/O coronary artery bypass surgery Chief Complaint INT LABS Chief Complaint 1 Y FU BILIARY COLIC ACUTE CHOLECYSTITIS ACUTE CHOLECYSTITIS BILIARY COLIC Reason for Visit Aortic valve disease Essential (primary) hypertension HLD (hyperlipidemia) H/O coronary artery bypass surgery Acute calculous cholecystitis Chief Complaint BILIARY COLIC ACUTE CHOLECYSTITIS PREOP ACUTE CHOLECYSTITIS BILIARY COLIC ACUTE CHOLECYSTITIS 10/20 NSTEMI Reason for Visit Acute calculous chol ecystitis Status post laparoscopic cholecystectomy Non-STEMI (non-ST elevated myocardial infarction) Chief Complaint BILIARY COLIC ACUTE CHOLECYSTITIS PREOP ACUTE CHOLECYSTITIS BILIARY COLIC ACUTE CHOLECYSTITIS 10/20 NSTEMI NSTEMI NSTEMI NSTEMI Reason for Visit Acute calculous chol ecystitis Status post laparoscopic cholecystectomy Non-STEMI (non-ST elevated myocardial infarction) Stented coronary artery Summary Purpose Additional Source Comments Reason for Visit (unrecogniz ed section and content) Reason For Visit Description New - 1st visit with practice Preliminary reason f or visit data, not yet signed by the author as of right hand pain Reason For Visit Description Start Date Follow-up by complaint Preliminary reason f or visit data, not yet signed by the author as of right hand Goals (unrecognized section and content) Goals may be documented in a n alternate sectionGoals may be documented in an alternate sectionGoals may be documented in an alternate section Care Teams (unrecognized sec tion and content) Team Status: Active Member Role Status Dates Dr. Theo Mcpherson MD Family Provider Active Emi Dubose DO Primary Care Provider Active Team Status: Inactive Member Role Status Dates Dr. Dru Deleon MD Primary Care Provider, Referring P stevan Active Dr. Abiodun Parra MD Attending Provider Active Team Status: Active Member Role Status Dates Emi Dubose DO Primary Care Provider Active Dr. Adam Pang MD Emergency Provider Active Dr. Trevin Gomez MD Admit Provider, Other Prov ider Active Ericka JAIN, PA-C Attending Provider Active Team Status: Active Member Role Status Dates Emi Dubose DO Primary Care Provider Active Dr. Adam Pang MD Emergency Provider Active Dr. Trevin Gomez MD Admit Provid er, Attending Provider, Other Provider Active Team Status: Active Member Role Status Dates Emi Dubose DO Primary Care Provider Active Dr. Adam Pang MD Emergency Provider Active Dr. Trevin Gomez MD Admit Provider, Other Prov ider Active Dr. Curly Coffey MD Attending Provider Active Team Status: Inactive Member Role Status Dates Emi M Sedrick , DO Primary Care Provider Active Dr. Adam Pang MD Emergency Provider Active Dr. Trevin Gomez MD Admit Provider, Attending Provider Active Team Status: Inactive Member Role Status Dates Emi Soner , DO Primary Care Provider, Referring Provider Active Dr. Trevin Gomez MD Attending Provider Active Team Status: Active Member Role Status Dates Emi Soner , DO Primary Care Provider Active Dr. Palomo Dsa MD Attending Provider Active Dr. Trevin Gomez MD Referring Provider Active Team Status: Active Member Role Status Dates Emi Soner , DO Primary Care Provider Active Dr. Gilda Diaz MD Emergency Provider Active Dr. Mick De Leon MD Admit Provider, Attending Provider Active Team Status: Active Member Role Status Dates Emi Songabbi DO Primary Care Provider Active Dr. Gilda Diaz MD Emergency Provider Active Dr. Mick De Leon MD Admit Provider, Other Pro vider Active Dr. Marvin Kirkland MD Other Provider Active Dr. Lois Hernandes MD Attending Provider, Other Provid er Active Team Status: Active Member Role Status Dates Emi Herringcolin DO Primary Care Provider Active Dr. Gilda Diaz MD Emergency Provider Active Dr. Mick De Leon MD Admit Provider, Other Pro vider Active Dr. Marvin Kirkland MD Attending Provider, Othe r Provider Active Dr. Lois Hernandes MD Other Provider Active Team Status: Inactive Member Role Status Dates Emi Cj HerringSedrickDO colin Primary Care Provider Active Dr. Gilda Diaz MD Emergency Provider Active Dr. Mick De Leon MD Admit Provider, Other Pro vider Active Dr. Marvin Kirkland MD Other Provider Active Dr. Lois Hernandes MD Attending Provider Active (unrecognized sect ion and content) No Status Records Found INFORMATION SOURCE (unrecogn ized section and content) DATE CREATED AUTHOR 01/27/2024 [facility] FOR RECORDS PERTAINING TO PATIENTS WHO ARE OR HAVE BEEN ENROLLED IN A CHEMICAL DEPENDENCY/SUBSTANCEABUSE PROGRAM, SOME INFORMATION MAY BE OMITTED. This clinical summary was aggregated from multiple sources. Caution should be exercised in using it in the provision of clinical care. This summary normalizes information from multiple sources, and as a consequence, information in this document may materially change the coding, format and clinical context of patient data. In addition, data may be omitted in some cases. CLINICAL DECISIONS SHOULD BE BASED ON THE PRIMARY CLINICAL RECORDS. [facility] [employer] [facility]. provides no warranty or guarantee of the accuracy or completeness of information in this document.
[2024-12-26 07:24] LABS: Hematocrit 44.7 % (40-54); Hemoglobin 14.8 g/dL (13.0-16.5); Immature Granulocytes Count 0.070 X10^3/uL (0.0-0.0); Mean Corp Hgb Conc 33.1 g/dL (32-36); Mean Corpuscular Volume 86.0 fL (80-94); Mean Platelet Vol. 11.0 fl (6.2-12.0); NRBC Flagged by Analyzer 0 % (0-5); Platelet Count 180 K/mm3 (150-450); RBC Distribution Width CV 13.9 % (11.6-14.6); RBC Distribution Width SD 43.4 fl (35.1-43.9); Red Blood Count 5.20 M/mm3 (4.6-6.2); White Blood Count 9.8 K/mm3 (4.4-11.0)
[2024-12-26 07:53] LABS: AST(SGOT) 33 U/L (<=37); Alanine Aminotransfer ALT/SGPT 29 U/L (<=46); Albumin, Serum 4.3 g/dL (3.4-4.8); Alkaline Phosphatase 41 U/L (40-129); Anion Gap 11 (5-15); BUN 30 mg/dL (4-19); BUN/Creat Ratio 22.4 RATIO (10-20); Calcium,Total 9.4 mg/dL (7.6-11.0); Carbon Dioxide 26.3 mmol/L (21.0-32.0); Chloride 101 mmol/L (98-108); Cholesterol 163 mg/dL (<=200); Globulin 3.0 g/dL (2.2-4.2); Glucose 126 mg/dL (70-99); Low Density Lipoprotein Calc. 93 mg/dL; Potassium 4.1 mmol/L (3.3-5.1); Triglycerides 237 mg/dL; Very Low Density Lipoprotein 47 mg/dL (5-40); cholesterol:hdl ratio screen 5.56
== END | disposition home or self-care (01) ==
LOC: LAB 06:38
PROVIDERS: PCP Family Medicine; Referring Provider Family Medicine; Visit Provider Family Medicine
DX: Z00.00 Encounter for general adult medical examination without abnormal findings (principal); E11.9 Type 2 diabetes mellitus without complications; I10 Essential (primary) hypertension
CPT/HCPCS: 36415; 80053; 80061; 83036; 84443; 85025